=== PATIENT | male | born 1970 | race Caucasian/White ===

== ENCOUNTER 2017-11-30 14:32 | Inpatient (IN) | payer MEDICAID ==
[~2017-11-30] VITALS: Ht 172.7 cm; Wt 89.8 kg
[~2017-11-30 14:32] MED LIST: HYDR-385 PO; NO ROUTINE MEDS; NO RTN MEDS; OMEP-218 PO
--- NOTE | 2017-11-30 15:10 | ER Report ---
History and Physical Time Seen By MD: 14:48 Hx. of Stated Complaint: pt has had several severe injuries since 1988; uses a cane, last week fell at home flat forward and has had worsening weakness in arms and legs leading up to almost paralysis, unable to walk currently HPI/ROS CHIEF COMPLAINT: Fall HISTORY OF PRESENT ILLNESS: This is a 47-year-old male who presents to the emergency department status post falling several times over the last couple of weeks. Patient states he has had a progression of inability to ambulate without an assistive device over the last year or so. He has been using a cane to help ambulate over the last two weeks, then the past week he's been using a walker to ambulate. States on he fell forward landing on his face on a carpeted floor, denies loss of consciousness. He did not come to the ED follow- up. Patient states now his walking is more impaired and decreased function of his upper extremities. He is not able to hold himself up with his arms, pulse himself up or even feed himself. Patient states he just didn't want to come in for evaluation. Patient states he's also been evaluated at [facility] for his known neck injuries and degenerative disc disease, he was supposed to have surgery but he said he "chickened out". Patient states today he is very nervous and decided to come in for evaluation. Patient denies any changes in his chronic pain. The inability to lift his arms and legs has been progressing over the last "3 weeks", the edema in the hands and ankles has developed over the past couple of days. No changes in bowel or bladder function. Denies headaches, chest pain, shortness of breath, fevers, chills, aches, pain, nausea or vomiting. REVIEW OF SYSTEMS: Constitutional: No fever, no chills. Eyes: No discharge. ENT: No sore throat. Cardiovascular: No chest pain, no palpitations. Respiratory: No cough, no shortness of breath. Gastrointestinal: No abdominal pain, no vomiting. Genitourinary: No hematuria. Musculoskeletal: As above. Skin: No rashes. Neurological: As above. Allergies: Coded Allergies: No Known Drug Allergies (Unverified , 01/09/12) Home Meds Reported Medications [No Routine Meds] No Conflict Check, 0 Refills 03/23/11 Discontinued Scripts Hydrocodone Bit/Acetaminophen (HYDROCODON-ACETAMINOPHEN 5-325) 1 Each Tablet, 1 EACH PO Q4-6H Y for PAIN, #12 TAB Prov:NANI WHITTINGTON CERTIFIED PHYSICAL THERAPIST ASSISTANT 05/05/17 Past Medical/Surgical History Patient has a past medical and surgical history of migraines, hypertension, hypercholesterolemia, arthritis, fractures, back pain, neck pain, skull fracture with surgery. Reviewed Nurses Notes: Yes Hx Smoking: Yes (1 PACK EVERY 2 DAYS) Hx Substance Use Disorder: No Hx Alcohol Use: Yes (OCCASIONALLY) Constitutional Vital Sign - Last 24 Hours 11/30/17 11/30/17 11/30/17 11/30/17 14:32 14:40 14:41 14:47 Temp 98.9 Pulse ??? 90 94 Resp 18 B/P (MAP) 146/96 (113) 146/96 Pulse Ox 97 94 O2 Delivery Room Air 11/30/17 11/30/17 11/30/17 11/30/17 15:00 15:02 15:17 15:30 Pulse ??? 94 B/P (MAP) 139/109 (119) 152/87 (108) Pulse Ox 92 11/30/17 11/30/17 11/30/17 11/30/17 15:32 15:47 17:52 17:57 Pulse 97 80 ? Pulse Ox 92 11/30/17 11/30/17 11/30/17 11/30/17 18:02 18:07 18:12 18:17 Pulse ? 11/30/17 11/30/17 11/30/17 11/30/17 18:22 18:27 18:32 18:37 Pulse ? 11/30/17 11/30/17 11/30/17 11/30/17 18:42 18:47 18:52 18:57 Pulse ? 89 ??? B/P (MAP) 148/89 (108) Pulse Ox 98 11/30/17 11/30/17 11/30/17 11/30/17 19:00 19:02 19:07 19:12 Pulse 93 87 87 B/P (MAP) 134/82 (99) 133/85 (101) Pulse Ox 94 93 89 11/30/17 11/30/17 11/30/17 11/30/17 19:17 19:22 19:27 19:30 Pulse 93 92 86 B/P (MAP) 141/89 (106) Pulse Ox 94 92 91 11/30/17 11/30/17 19:32 19:37 Pulse 87 ??? Pulse Ox 93 95 Physical Exam General Appearance: The patient is alert, has no immediate need for airway protection and no signs of toxicity. Eyes: Anisocoria, right pupil 3mm, left pupil 2mm both are round and reactive, no pallor or injection. ENT, TM's intact, pearly hnoeycutt, landmarks noted bilaterally. Mouth: Mucous membranes are moist. No tonsillar hypertrophy, no exudate. Nose: Inferior turbinates pink and moist, no nasal discharge. Respiratory: There are no retractions, lungs are clear to auscultation. Cardiovascular: Regular rate and rhythm, no murmurs, clicks or rubs. Gastrointestinal: Abdomen is soft and non tender, no masses, bowel sounds normal. Neurological: Alert and oriented 4. 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 3-4/5 strength lower extremities bilaterally. Following all commands. No focal neuro deficits. 2+ biceps, patellar and Achilles reflexes. Cranial nerves II-XII intact and equal. Skin: Warm and dry, no rashes. Several abrasions to lower extremities bilaterally. Musculoskeletal: Neck is supple mild generalized tenderness to the spine, no step-offs or crepitus noted. Extremities are nontender, +1 pitting edema to the ankles bilaterally. Non pitting edema to the hands. full range of motion. DIFFERENTIAL DIAGNOSIS: After history and physical exam differential diagnosis was considered for but not limited to degenerative disc disease, herniated disc , spine fracture, pathogenic fracture, cauda equina syndrome. Medical Decision Making Data Points Result Diagram: 11/30/17 1506 11/30/17 1506 Laboratory Hematology Test 11/30/17 15:06 Red Blood Count 5.31 M/uL (4.00-5.60) Mean Corpuscular Volume 91.9 fL (80.0-96.0) Mean Corpuscular Hemoglobin 32.3 pg (26.0-33.0) Mean Corpuscular Hemoglobin Concent 35.1 g/dL (32.0-36.0) Red Cell Distribution Width 13.6 % (11.5-14.5) Mean Platelet Volume 9.3 fL (7.2-11.1) Neutrophils (%) (Auto) 52.7 % (39.4-72.5) Lymphocytes (%) (Auto) 34.7 % (17.6-49.6) Monocytes (%) (Auto) 9.5 % (4.1-12.4) Eosinophils (%) (Auto) 2.5 % (0.4-6.7) Basophils (%) (Auto) 0.6 % (0.3-1.4) Nucleated RBC Relative Count (auto) 0.7 /100WBC Neutrophils # (Auto) 3.0 K/uL (2.0-7.4) Lymphocytes # (Auto) 2.0 K/uL (1.3-3.6) Monocytes # (Auto) 0.5 K/uL (0.3-1.0) Eosinophils # (Auto) 0.1 K/uL (0.0-0.5) Basophils # (Auto) 0.0 K/uL (0.0-0.1) Nucleated RBC Absolute Count (auto) 0.04 K/uL Sodium Level 140 mmol/L (137-145) Potassium Level 4.0 mmol/L (3.5-5.0) Chloride Level 104 mmol/L (98-107) Carbon Dioxide Level 26 mmol/L (22-30) Blood Urea Nitrogen 15 mg/dl (9-21) Creatinine 0.70 mg/dl (0.66-1.25) Glomerular Filtration Rate Calc > 60.0 Random Glucose 155 mg/dl (75-110) Calcium Level 9.4 mg/dl (8.4-10.2) Total Bilirubin 0.6 mg/dl (0.2-1.3) Aspartate Amino Transf (AST/SGOT) 36 U/L (0-35) Alanine Aminotransferase (ALT/SGPT) 62 U/L (0-56) Alkaline Phosphatase 76 U/L (0-126) Total Protein 6.8 gm/dl (6.3-8.2) Albumin 3.8 g/dl (3.5-5.0) Chemistry Test 11/30/17 15:06 White Blood Count 5.7 k/uL (4.5-11.0) Red Blood Count 5.31 M/uL (4.00-5.60) Hemoglobin 17.1 g/dL (14.0-18.0) Hematocrit 48.8 % (42.0-52.0) Mean Corpuscular Volume 91.9 fL (80.0-96.0) Mean Corpuscular Hemoglobin 32.3 pg (26.0-33.0) Mean Corpuscular Hemoglobin Concent 35.1 g/dL (32.0-36.0) Red Cell Distribution Width 13.6 % (11.5-14.5) Platelet Count 143 K/uL (150-450) Mean Platelet Volume 9.3 fL (7.2-11.1) Neutrophils (%) (Auto) 52.7 % (39.4-72.5) Lymphocytes (%) (Auto) 34.7 % (17.6-49.6) Monocytes (%) (Auto) 9.5 % (4.1-12.4) Eosinophils (%) (Auto) 2.5 % (0.4-6.7) Basophils (%) (Auto) 0.6 % (0.3-1.4) Nucleated RBC Relative Count (auto) 0.7 /100WBC Neutrophils # (Auto) 3.0 K/uL (2.0-7.4) Lymphocytes # (Auto) 2.0 K/uL (1.3-3.6) Monocytes # (Auto) 0.5 K/uL (0.3-1.0) Eosinophils # (Auto) 0.1 K/uL (0.0-0.5) Basophils # (Auto) 0.0 K/uL (0.0-0.1) Nucleated RBC Absolute Count (auto) 0.04 K/uL Glomerular Filtration Rate Calc > 60.0 Calcium Level 9.4 mg/dl (8.4-10.2) Total Bilirubin 0.6 mg/dl (0.2-1.3) Aspartate Amino Transf (AST/SGOT) 36 U/L (0-35) Alanine Aminotransferase (ALT/SGPT) 62 U/L (0-56) Alkaline Phosphatase 76 U/L (0-126) Total Protein 6.8 gm/dl (6.3-8.2) Albumin 3.8 g/dl (3.5-5.0) EKG/Imaging Imaging Location: [facility] [place] Patient: Je Mcgarry : 1970 Visit/Account:[id number] Date of Sevice: 11/30/2017 Examination: C SPINE W/O CONTRAST Comparison: CT cervical spine 05/05/2017 History: decreased ability to ambulate and use upper extremities Procedure: Multiplanar noncontrast MRI cervical spine with T1, T2, STIR, and gradient sequences. Findings: Focal reversal of the cervical curvature from C3 through C5 is minimally changed since the CT. No acute or cervical vertebral body height loss or malalignment. Atlantoaxial, craniocervical, and cervicothoracic alignment is within normal limits. Focal bone marrow edema and C4 and to lesser extent C5; as there is no history of trauma this is presumably degenerative. This lies contents of the posterior fossa unremarkable. No acute abnormality in the visualized prevertebral or paraspinal soft tissues. C1-C2: Negative. C2-C3: Degenerative disc desiccation. No canal or foraminal narrowing. C3-C4: Degenerative disc desiccation. Moderate canal stenosis with mild flattening of the spinal cord secondary to an irregular posterior disc and osteophyte complex. Advanced narrowing of both neural foramina due to uncovertebral joint particularly although evaluation is mildly limited by motion. C4-C5: Degenerative disc desiccation with a large diffusely bulging disc with resultant severe canal stenosis and flattening of the spinal cord spinal canal. Increased T2 signal within the compressed spinal cord extending to the level of the C5-C6 disc space. Maximum AP diameter of the canal at the level of the disc space is 4 mm. Additionally, the degenerative disc bulge results in high-grade narrowing of both neural foramina. C5-C6: Degenerative disc desiccation with a diffusely bulging disc. Moderately severe canal stenosis with near-complete effacement of the CSF space and flattening of the spinal cord. As noted above, there is increased T2 signal within the spinal cord at this level. High-grade narrowing of both neural foramina due to the disc disease. C6-C7: Negative. C7-T1: Negative. IMPRESSION: 1. Severe canal stenosis at C4-C5 and to lesser extent C3-C4 and C5-C6 is associated with marked compression of the spinal cord and associated cord signal alteration. Spine surgery consultation is required. 2. C3-C4, C4-C5, C5-C6 advanced neural foraminal narrowing. Results were discussed with KRISS SALCIDO at 11/30/2017 6:32 PM. Report Dictated By: Fran Parker MD at 11/30/2017 6:22 PM Report E-Signed By: Fran Parker MD at 11/30/2017 6:34 PM WSN:[id number] Location: [facility] [place] Patient: Je Mcgarry : 1970 Visit/Account:[id number] Date of Sevice: 11/30/2017 Examination: L SPINE W/O CONTRAST Comparison: None. History: decreased ability to ambulate and use upper extremities bilaterally Procedure: Multiplanar noncontrast MRI lumbar spine with T1, T2, and STIR sequences. Findings: 5 lumbar type vertebral bodies. Vertebral body height and alignment is within normal limits. Thoracolumbar, facet, and lumbosacral alignment is maintained. L1 vertebral body 2.4 x 3.1 x 2.5 cm hemangioma. Bone marrow signal intensity is within normal limits. No acute abnormality within the visualized prevertebral or paraspinal soft tissues. T12-L1: Negative. L1-L2: Negative. L2-L3: Diffusely bulging disc with a prominent left subarticular, foraminal, and lateral component. This results in only minimal canal narrowing although there is moderate narrowing of the left lateral recess with questionable contact upon the L2 nerve root within the recess. Additionally, there is mild left worse than right foraminal narrowing. L3-L4: Mild facet arthropathy results in mild canal and lateral recess narrowing but no nerve root impingement. No definite foraminal narrowing. L4-L5: Mild facet and ligamentous hypertrophy. Diffusely bulging disc with a prominent right subarticular, foraminal, and lateral component. This results in only minimal canal narrowing although there is moderately severe narrowing of the right lateral recess with probable contact on the L5 nerve root within the recess. Additionally, there is moderate right-sided foraminal narrowing. L5-S1: Minimal diffuse disc bulge and facet arthropathy. No canal or lateral recess narrowing. Minimal left foraminal narrowing. IMPRESSION: Multilevel degenerative change. As further detailed above this is most notable at L2-L3 and L4-L5 where lateral recess narrowing is likely associated with nerve root contact. Report Dictated By: Fran Parker MD at 11/30/2017 7:08 PM Report E-Signed By: Fran Parker MD at 11/30/2017 7:22 PM WSN:[id number] Location: [facility] [place] Patient: Je Mcgarry : 1970 Visit/Account:[id number] Date of Sevice: 11/30/2017 Examination: MRI thoracic spine without contrast. Comparison: None. History: decreased ability to ambulate and use both upper extremities Procedure: Multiplanar noncontrast MRI thoracic spine with T1, T2, and STIR sequences. FINDINGS: 12 thoracic type vertebral bodies. Vertebral body height and alignment is within normal limits. Cervicothoracic and thoracolumbar alignment is maintained. Bone marrow signal intensity is within normal limits. Thoracic spinal cord is unremarkable with no evidence of spinal cord signal alteration. T7-T8 mild diffusely bulging disc results in minimal effacement of the anterior thecal sac. T5-T6 right neural foramina mild narrowing with possible nerve root compression. No acute abnormality in the visualized prevertebral or paraspinal soft tissues. IMPRESSION: Mild degenerative change at T5-T6 and T7-T8 with possible nerve root compression within the T5-T6 right neural foramina. Report Dictated By: Fran Parker MD at 11/30/2017 6:32 PM Report E-Signed By: Fran Parker MD at 11/30/2017 6:40 PM WSN:[id number] ED Course/Re-evaluation Clinical Indication for ER IV: IV Access ED Course The patient was assisted out of the collar upon arrival, then admitted to room via wheelchair. Patient was assisted to the [facility]. History and physical were obtained. Differential diagnoses were considered. An IV was started. A CBC, CMP , UA were unremarkable. A C-spine, T-spine and L-spine MRI's were obtained. Results were showing severe canal stenosis and marked compression of the spinal cord with inflammation, the radiologist did call saying that surgical consultation is required. Patient also has advanced neural foraminal narrowing. I did end up speaking with Dr. Avalos as noted below. I also spoke with Dr. Chinyere Bowser is noted below who is accepted the patient in her services for Dr. Avalos. Dr. Avalos will see the patient in the morning for surgical evaluation. I did review the results with the patient and expressed the concern for his rapid progression of symptoms and that surgery is likely the only way that this will resolve. Patient is very concerned and is willing to stay in the hospital tonight and speak with Dr. Avalos in the morning. Patient was also given 1 mg IV Ativan for the MRI. Patient was also given 50 mg IV Decadron as requested by Dr. Avalos. The patient had no other questions or concerns at the time of admission. Also noted that the patient did have a urinary incontinence episode in the MRI which he was not aware of. 11/30/2017 7:14:42 pm I did consult with Dr. Alvarado, neurosurgery in [place] regarding the patient's case and the recommendation by radiology for emergent spine surgery consultation. He recommended following up with the spinal surgeon here in [facility], Dr. Avalos. 11/30/2017 7:18:07 pm I did speak with the ortho hospital nurse liaison Dr. Martin from [facility], Dr. Martin will a call Dr. Avalos [facility] integration specialist see what he would recommend and call me back. 11/30/2017 7:42:[address] Avalos did call we did review the case he has to hit admit the patient to the hospitalist service he will be here tomorrow, evaluated the patient and they'll discuss surgery at that time. He also said to go ahead and give the patient a 50 mg Decadron dose to help with cord inflammation. I did speak with Dr. Chinyere Bowser regarding the patient's case and she has agreed to accept the patient into her services. The patient will be admitted to the medical surgical unit. Decision to Disposition Date: Nov 30, 2017 Decision to Disposition Time: 19:52 Depart Departure Latest Vital Signs Vital Signs Date Time Temp Pulse Resp B/P (MAP) Pulse Ox O2 Delivery O2 Flow Rate FiO2 11/30/17 19:37 ??? 95 11/30/17 19:30 141/89 (106) 11/30/17 14:41 98.9 18 Room Air Impression: Primary Impression: Spinal cord compression Additional Impression: Cervical stenosis of spinal canal Condition: Condition Unchanged Disposition: Admitted from ER Problem Qualifiers KRISS SALCIDO CERTIFIED PHYSICAL THERAPIST ASSISTANT-BC Nov 30, 2017 15:10
[2017-11-30 15:24] LABS: PLATELET COUNT, AUTOMATED 143 K/uL (150-450)
[2017-11-30] MEDS ORDERED: LORazepam 2 MG/ML VIAL IVP ONE ×2 (16:35→16:45)
[2017-11-30] MEDS ORDERED: LORazepam 2 MG/ML VIAL ONE (16:37)
--- NOTE | 2017-11-30 18:38 | RADIOLOGY IMAGING REPORT ---
FACILITY: [facility] PATIENT NAME: Je Mcgarry : 1970 MR: [id number] V: [id number] EXAM DATE: ORDERING PHYSICIAN: KRISS SALCIDO TECHNOLOGIST: Location: [facility] [place] Patient: Je Mcgarry : 1970 Visit/Account:[id number] Date of Sevice: 11/30/2017 Examination: C SPINE W/O CONTRAST Comparison: CT cervical spine 05/05/2017 History: decreased ability to ambulate and use upper extremities Procedure: Multiplanar noncontrast MRI cervical spine with T1, T2, STIR, and gradient sequences. Findings: Focal reversal of the cervical curvature from C3 through C5 is minimally changed since the CT. No acute or cervical vertebral body height loss or malalignment. Atlantoaxial, craniocervical, an d cervicothoracic alignment is within normal limits. Focal bone marrow edema and C4 and to lesser ext ent C5; as there is no history of trauma this is presumably degenerative. This lies contents of the p osterior fossa unremarkable. No acute abnormality in the visualized prevertebral or paraspinal soft t issues. C1-C2: Negative. C2-C3: Degenerative disc desiccation. No canal or foraminal narrowing. C3-C4: Degenerative disc desiccation. Moderate canal stenosis with mild flattening of the spinal cord secondary to an irregular posterior disc and osteophyte complex. Advanced narrowing of both neural f oramina due to uncovertebral joint particularly although evaluation is mildly limited by motion. C4-C5: Degenerative disc desiccation with a large diffusely bulging disc with resultant severe canal stenosis and flattening of the spinal cord spinal canal. Increased T2 signal within the compressed sp inal cord extending to the level of the C5-C6 disc space. Maximum AP diameter of the canal at the lev el of the disc space is 4 mm. Additionally, the degenerative disc bulge results in high-grade narrowi ng of both neural foramina. C5-C6: Degenerative disc desiccation with a diffusely bulging disc. Moderately severe canal stenosis with near-complete effacement of the CSF space and flattening of the spinal cord. As noted above, the re is increased T2 signal within the spinal cord at this level. High-grade narrowing of both neural f oramina due to the disc disease. C6-C7: Negative. C7-T1: Negative. IMPRESSION: 1. Severe canal stenosis at C4-C5 and to lesser extent C3-C4 and C5-C6 is associated with marked comp ression of the spinal cord and associated cord signal alteration. Spine surgery consultation is requi red. 2. C3-C4, C4-C5, C5-C6 advanced neural foraminal narrowing. Results were discussed with KRISS SALCIDO at 11/30/2017 6:32 PM. Report Dictated By: Fran Parker MD at 11/30/2017 6:22 PM Report E-Signed By: Fran Parker MD at 11/30/2017 6:34 PM WSN:[id number]
--- NOTE | 2017-11-30 18:45 | RADIOLOGY IMAGING REPORT ---
[place] [facility] [place] NAME: Je Mcgarry : 1970 MR: [id number] V: [id number] EXAM DATE: ORDERING PHYSICIAN: KRISS SALCIDO TECHNOLOGIST: Location: [facility] Patient: Je Mcgarry : 1970 Visit/Account:[id number] Date of Sevice: 11/30/2017 Examination: MRI thoracic spine without contrast. Comparison: None. History: decreased ability to ambulate and use both upper extremities Procedure: Multiplanar noncontrast MRI thoracic spine with T1, T2, and STIR sequences. FINDINGS: 12 thoracic type vertebral bodies. Vertebral body height and alignment is within normal thomas its. Cervicothoracic and thoracolumbar alignment is maintained. Bone marrow signal intensity is withi n normal limits. Thoracic spinal cord is unremarkable with no evidence of spinal cord signal alterati on. T7-T8 mild diffusely bulging disc results in minimal effacement of the anterior thecal sac. T5-T6 rig ht neural foramina mild narrowing with possible nerve root compression. No acute abnormality in the visualized prevertebral or paraspinal soft tissues. IMPRESSION: Mild degenerative change at T5-T6 and T7-T8 with possible nerve root compression within the T5-T6 rig ht neural foramina. Report Dictated By: Fran Parker MD at 11/30/2017 6:32 PM Report E-Signed By: Fran Parker MD at 11/30/2017 6:40 PM WSN:[id number]
--- NOTE | 2017-11-30 19:25 | RADIOLOGY IMAGING REPORT ---
FACILITY: [facility] PATIENT NAME: Je Mcgarry : 1970 MR: [id number] V: [id number] EXAM DATE: ORDERING PHYSICIAN: KRISS SALCIDO TECHNOLOGIST: Location: [facility] [place] Patient: Je Mcgarry : 1970 Visit/Account:[id number] Date of Sevice: 11/30/2017 Examination: L SPINE W/O CONTRAST Comparison: None. History: decreased ability to ambulate and use upper extremities bilaterally Procedure: Multiplanar noncontrast MRI lumbar spine with T1, T2, and STIR sequences. Findings: 5 lumbar type vertebral bodies. Vertebral body height and alignment is within normal limits . Thoracolumbar, facet, and lumbosacral alignment is maintained. L1 vertebral body 2.4 x 3.1 x 2.5 cm hemangioma. Bone marrow signal intensity is within normal limits. No acute abnormality within the vi sualized prevertebral or paraspinal soft tissues. T12-L1: Negative. L1-L2: Negative. L2-L3: Diffusely bulging disc with a prominent left subarticular, foraminal, and lateral component. T his results in only minimal canal narrowing although there is moderate narrowing of the left lateral recess with questionable contact upon the L2 nerve root within the recess. Additionally, there is mil d left worse than right foraminal narrowing. L3-L4: Mild facet arthropathy results in mild canal and lateral recess narrowing but no nerve root im pingement. No definite foraminal narrowing. L4-L5: Mild facet and ligamentous hypertrophy. Diffusely bulging disc with a prominent right subartic ular, foraminal, and lateral component. This results in only minimal canal narrowing although there i s moderately severe narrowing of the right lateral recess with probable contact on the L5 nerve root within the recess. Additionally, there is moderate right-sided foraminal narrowing. L5-S1: Minimal diffuse disc bulge and facet arthropathy. No canal or lateral recess narrowing. Minima l left foraminal narrowing. IMPRESSION: Multilevel degenerative change. As further detailed above this is most notable at L2-L3 and L4-L5 whe re lateral recess narrowing is likely associated with nerve root contact. Report Dictated By: Fran Parker MD at 11/30/2017 7:08 PM Report E-Signed By: Fran Parker MD at 11/30/2017 7:22 PM WSN:[id number]
[2017-11-30] MEDS ORDERED: DEXAMETHASONE SOD PHOS 10MG/ML IVP ONE (19:35)
[2017-11-30] MEDS ORDERED: NS(*) 0.9% 100 ML BAG 100 ML ONE (19:59)
[2017-11-30] MEDS ORDERED: HYDROmorphone HCL 2 MG/ML SDV IVP PRN (20:20)
[2017-11-30] MEDS ORDERED: NS(*) 0.9% 100 ML BAG 100 ML in NS(*) 0.9% 100 ML BAG 100 ML IVPB ONE (20:20)
[2017-11-30 20:42] VITALS: BP 154/101
[2017-11-30] MEDS ORDERED: PANTOPRAZOLE SOD 40 MG IV VIAL IVP SCH (21:00)
[2017-11-30] MEDS ORDERED: INFLUENZA VIRUS VAC 0.5 ML SYR IM ONLY ONE (21:05)
[2017-11-30] MEDS ORDERED: ONDANSETRON 4 MG/2 ML VIAL IVP PRN (21:05)
[2017-11-30] MEDS ORDERED: ACETAMINOPHEN 325 MG TAB PO PRN (21:05)
[2017-11-30] MEDS: NS(*) 0.9% 1000 ML BAG 1,000 ML IV PRN (21:25)
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
[2017-11-30] MEDS ORDERED: CALCIUM CARBONATE 500 MG CHEW PO PRN (21:45)
--- NOTE | 2017-11-30 22:10 | RADIOLOGY IMAGING REPORT ---
FACILITY: [facility] PATIENT NAME: Je Mcgarry : 1970 MR: [id number] V: [id number] EXAM DATE: ORDERING PHYSICIAN: JOHNNY BANUELOS TECHNOLOGIST: Location: [facility] [place] Patient: eJ Mcgarry : 1970 Visit/Account:[id number] Date of Sevice: 11/30/2017 EXAMINATION: Portable AP Chest 11/30/2017 8:19 PM HISTORY: Severe cervical stenosis with paralysis, surgery am COMPARISON: Chest x-ray 06/03/2014 FINDINGS: Cardiomediastinal contours: Convex prominence of the right paratracheal stripe soft tissue contours m ore evident than on priors but I think this area is grossly evaluated by the thoracic spine MR today and there is only fat and vasculature without definable mass or adenopathy. Heart size is normal. Lungs and pleura: Normal Bones/soft tissues: Normal IMPRESSION: Probably negative for acute finding. See above discussion regarding the right paratrachea l stripe. Report Dictated By: Pedro Davis MD at 11/30/2017 10:04 PM Report E-Signed By: Pedro Davis MD at 11/30/2017 10:07 PM WSN:[id number]
[2017-12-01 02:50] VITALS: BP 137/85
[2017-12-01] MEDS: NS(*) 0.9% 1000 ML BAG 1,000 ML IV PRN (07:23)
[2017-12-01 07:24] VITALS: BP 129/90
[2017-12-01 09:10] VITALS: Ht 172.7 cm; Wt 89.8 kg
--- NOTE | 2017-12-01 11:28 | EKG ---
[place] [facility] [place]IENT NAME: MICHELLE ANGEL : [id number] MR: [id number] V: [id number] EXAM DATE: ORDERING PHYSICIAN: JOHNNY BANUELOS TECHNOLOGIST: ABBEY Test Reason : PRE-OP Blood Pressure : / mmHG Vent. Rate : 084 BPM Atrial Rate : 084 BPM P-R Int : 152 ms QRS Dur : 094 ms QT Int : 378 ms P-R-T Axes : 079 086 072 degrees QTc Int : 446 ms Normal sinus rhythm Normal ECG When compared with ECG of 03-JUN-2014 09:23, No significant change was found Confirmed by GRIFFIN EARLY ([id number]) on 12/01/2017 2:56:35 PM Referred By: Confirmed By:GRIFFIN EARLY
--- NOTE | 2017-12-01 13:06 | Hospitalist Depart ---
Discharge Summary Reason for Hosp/Final Diag: (1) Spinal cord compression Status: Acute Hospital Course & Plan: He presented with weakness and paralysis. An MRI showed severe stenosis at C4-5 and lesser degrees at C3-4 and C5-6. He is already scheduled for surgery on 12/08/[address] Avalos. We did consult with Dr. Avalos, who recommended that he be discharged in a wheelchair and follow up next week for surgery as planned. (2) Cervical stenosis of spinal canal Status: Chronic Hospital Course & Plan: As above. (3) Smoker Status: Chronic Hospital Course & Plan: The patient smokes 1 pack every 2 days. He declines a nicotine patch currently. Departure Latest Vital Signs Vital Signs 12/01/17 07:24 Temp 98.3 Pulse 97 Resp 16 B/P (MAP) 129/90 (103) Pulse Ox 93 O2 Delivery Nasal Cannula O2 Flow Rate 1.0 Weight (Pounds): 198 Result Diagram: 11/30/17 1506 11/30/17 1506 Condition: No Change Discharge: Home, Self Care Discharge Instructions Home Meds Reported Medications [No Routine Meds] No Conflict Check, 0 Refills 03/23/11 Discontinued Scripts Hydrocodone Bit/Acetaminophen (HYDROCODON-ACETAMINOPHEN 5-325) 1 Each Tablet, 1 EACH PO Q4-6H Y for PAIN, #12 TAB Prov:NANI WHITTINGTON [employer]GER 05/05/17 Diet: Regular Activity: As Tolerated Venous Thromboembolism Antithrombotics Is Pt On Any Antithrombotics?: No GRIFFIN EARLY DO Dec 01, 2017 13:06
[2017-12-02] MEDS ORDERED: HYDR-385 PO (12:47)
== END 2017-12-01 14:30 | disposition home or self-care (01) | DRG 552 ==
LOC: ER 14:43 → MED 19:49
PROVIDERS: ADMIT Internal Medicine; ATTEND Internal Medicine
DX: M48.02 Spinal stenosis, cervical region (principal); G95.20 Unspecified cord compression; I10 Essential (primary) hypertension; R32 Unspecified urinary incontinence; F17.210 Nicotine dependence, cigarettes, uncomplicated; G54.3 Thoracic root disorders, not elsewhere classified; Z87.828 Personal history of other (healed) physical injury and trauma
CPT/HCPCS: 71045; 72141; 72146; 72148; 81001; 82040; 82247; 82310; 82374; 82435; 82565; 82947; 84075; 84132; 84155; 84295; 84443; 84450; 84460; 84520; 85025; 96374; 96375; 97161; 97166; 99285; C9113; J1100; J1170; J2060; J7030; J7050

== ENCOUNTER → 2017-12-06 | Outpatient (REF) | payer MEDICAID ==
[2017-12-01 09:10] VITALS: BMI 30.1
== END ==
LOC: ZZPBJ 01:35
PROVIDERS: ATTEND Orthopaedic Surgery
DX: Z01.812 Encounter for preprocedural laboratory examination (principal); M47.812 Spondylosis without myelopathy or radiculopathy, cervical region
CPT/HCPCS: 81001; 87077; 87088; 87186

== ENCOUNTER → 2017-12-15 | Outpatient (CLI) | payer MEDICAID ==
[2017-12-01 09:10] VITALS: BMI 30.1
== END ==
LOC: LAB 16:06
PROVIDERS: ATTEND Orthopaedic Surgery
DX: Z01.810 Encounter for preprocedural cardiovascular examination (principal); Z01.812 Encounter for preprocedural laboratory examination; N39.0 Urinary tract infection, site not specified; B96.89 Other specified bacterial agents as the cause of diseases classified elsewhere; M47.12 Other spondylosis with myelopathy, cervical region
CPT/HCPCS: 81001; 87077; 87088; 87186

== ENCOUNTER 2017-12-21 11:49 | Emergency (ER) | payer MEDICAID ==
[2017-12-01 09:10] VITALS: Ht 172.7 cm; Wt 83.9 kg
[~2017-12-21] VITALS: Ht 172.7 cm; Wt 83.9 kg
[~2017-12-21 11:49] MED LIST changes: -ACET-1966 PO
--- NOTE | 2017-12-21 11:54 | ER Report ---
History and Physical Time Seen By MD: 11:54 HPI/ROS CHIEF COMPLAINT: Inability to move HISTORY OF PRESENT ILLNESS: 47-year-old male patient presents to emergency room with complaint of inability to move. Patient states that he's been like this for approximately 3 weeks. He states that he's been here in the hospital and was admitted to the hospital on November 30 and discharged on the . He was scheduled for surgery on the . He was diagnosed with urinary tract infection prior to that and so surgery was pushed back. Patient states that he was prescribed antibiotics, generic antibiotics that he picked up at [facility]. I did call and speak with [facility] and they state that he has not had any prescriptions. Patient states that he has been getting worse. He states that last night he developed having some cramping to his abdomen last night. He states he has significant amounts of abdominal pain. Patient states she's not had any nausea or vomiting. Patient is unable to recall when his last bowel movement was. REVIEW OF SYSTEMS: Constitutional: No fever, no chills. Eyes: No discharge. ENT: No sore throat. Cardiovascular: No chest pain, no palpitations. Respiratory: No cough, no shortness of breath. Gastrointestinal: No abdominal pain, no vomiting. Genitourinary: No hematuria. Musculoskeletal: Back pain for the past several weeks, increasing weakness, for which she was admitted for on or . Skin: No rashes. Neurological: No headache. Allergies: Coded Allergies: No Known Drug Allergies (Unverified , 01/09/12) Home Meds Reported Medications Acetaminophen (TYLENOL) 325 Mg Tablet, 325 MG PO, TAB 12/21/17 Past Medical/Surgical History Patient has a past medical history of migraines, UTI, arthritis, left fifth finger fracture, back pain, upper neck with numbness and tingling, weakness to lower extremities and upper extremities, marijuana use, alcohol use. Patient has surgical history of tonsillectomy, skull fracture repaired with surgery. Patient has a family medical history of cancer, CAD, diabetes. Reviewed Nurses Notes: Yes Hx Smoking: Yes (1 PACK EVERY 2 DAYS) Hx Substance Use Disorder: No (marijuana) Hx Alcohol Use: Yes (OCCASIONALLY) Constitutional Vital Sign - Last 24 Hours 12/21/17 12/21/17 12/21/17 12/21/17 11:52 11:53 12:00 12:04 Temp 98.2 Pulse 89 91 Resp 18 20 B/P (MAP) 120/84 (96) 120/84 96/75 (82) Pulse Ox 94 85 O2 Delivery Room Air 12/21/17 12/21/17 12/21/17 12/21/17 12:19 12:22 12:34 12:35 Pulse 86 89 Resp 36 34 B/P (MAP) 115/70 (85) 122/79 (93) Pulse Ox 87 96 12/21/17 12/21/17 12/21/17 12/21/17 12:49 13:02 13:04 13:30 Pulse 87 87 Resp 17 17 B/P (MAP) 115/79 (91) 118/21 (53) Pulse Ox 93 91 12/21/17 12/21/17 12/21/17 12/21/17 13:34 13:39 13:48 13:54 Pulse 88 89 90 Resp 27 8 B/P (MAP) 106/94 (98) Pulse Ox 92 92 12/21/17 12/21/17 12/21/17 12/21/17 14:00 14:09 14:24 14:33 Pulse 92 ??? Resp 18 B/P (MAP) 105/78 (87) 130/83 (99) Pulse Ox 94 12/21/17 12/21/17 12/21/17 12/21/17 14:39 14:54 15:00 15:05 Pulse ??? 97 93 Resp 5 8 6 B/P (MAP) 121/80 (94) Pulse Ox 77 98 96 12/21/17 12/21/17 12/21/17 12/21/17 15:10 15:10 15:17 15:20 Pulse 93 93 95 Resp 20 18 7 Pulse Ox 99 99 O2 Delivery Nasal Cannula O2 Flow Rate 2.0 12/21/17 12/21/17 12/21/17 12/21/17 15:23 15:30 15:35 15:50 Temp 97.1 Pulse 97 ??? Resp 31 12 B/P (MAP) 105/85 (92) Pulse Ox 96 12/21/17 12/21/1718 12/21/17 16:00 16:05 16:15 16:20 Pulse 98 102 Resp 28 13 B/P (MAP) 115/75 (88) 110/70 (83) Pulse Ox 96 95 12/21/17 12/21/17 12/21/17 12/21/17 16:30 16:35 16:45 16:50 Pulse ? B/P (MAP) ???/??? (1665) ???/??? (1664) 12/21/17 17:00 B/P (MAP) ???/??? (1664) Intake and Output 12/21/17 12/21/17 12/22/17 15:00 23:00 07:00 Intake Total 1000 ml 240 ml Output Total 200 ml Balance 1000 ml 40 ml Physical Exam General Appearance: The patient is alert, has no immediate need for airway protection and no signs of toxicity. Eyes: Pupils equal and round no pallor or injection. Respiratory: There are no retractions, lungs are clear to auscultation. Cardiovascular: Regular rate and rhythm. Gastrointestinal: Abdomen is firm and diffusely tender, no masses, bowel sounds normal. Neurological: Patient is able to move right arm, no other movement noted. Rectal exam was performed, patient had decreased rectal tone. Skin: Warm and dry, no rashes. Musculoskeletal: Neck is supple non tender. Extremities are nontender, nonswollen and have full range of motion. DIFFERENTIAL DIAGNOSIS: After history and physical exam differential diagnosis was considered for spinal cord compression, pain, small bowel obstruction, urinary infection, sepsis, Medical Decision Making Data Points Result Diagram: 12/21/17 1247 12/21/17 1247 Laboratory Hematology Test 12/21/17 12:47 12/21/17 15:45 Red Blood Count 4.20 M/uL (4.00-5.60) Mean Corpuscular Volume 91.8 fL (80.0-96.0) Mean Corpuscular Hemoglobin 31.0 pg (26.0-33.0) Mean Corpuscular Hemoglobin Concent 33.8 g/dL (32.0-36.0) Red Cell Distribution Width 13.3 % (11.5-14.5) Mean Platelet Volume 8.3 fL (7.2-11.1) Neutrophils (%) (Auto) % (39.4-72.5) Lymphocytes (%) (Auto) % (17.6-49.6) Monocytes (%) (Auto) % (4.1-12.4) Eosinophils (%) (Auto) % (0.4-6.7) Basophils (%) (Auto) % (0.3-1.4) Nucleated RBC Relative Count (auto) /100WBC Neutrophils # (Auto) K/uL (2.0-7.4) Lymphocytes # (Auto) K/uL (1.3-3.6) Monocytes # (Auto) K/uL (0.3-1.0) Eosinophils # (Auto) K/uL (0.0-0.5) Basophils # (Auto) K/uL (0.0-0.1) Nucleated RBC Absolute Count (auto) K/uL Neutrophils % (Manual) 77 % (39.4-72.5) Band Neutrophils % 21 % Lymphocytes % (Manual) 2 % (17.6-49.6) Monocytes % (Manual) 0 % (4.1-12.4) Eosinophils % (Manual) 0 % (0.4-6.7) Basophils % (Manual) 0 % (0.3-1.4) Peripheral Blood Smear Yes Y/N Sodium Level 125 mmol/L (137-145) Potassium Level 6.1 mmol/L (3.5-5.0) Chloride Level 96 mmol/L (98-107) Carbon Dioxide Level 14 mmol/L (22-30) Blood Urea Nitrogen 81 mg/dl (9-21) Creatinine 3.80 mg/dl (0.66-1.25) Glomerular Filtration Rate Calc 17.0 Random Glucose 207 mg/dl (75-110) Lactate 1.2 mmol/L (0.7-2.1) Calcium Level 7.9 mg/dl (8.4-10.2) Total Bilirubin 3.0 mg/dl (0.2-1.3) Aspartate Amino Transf (AST/SGOT) 25 U/L (0-35) Alanine Aminotransferase (ALT/SGPT) 50 U/L (0-56) Alkaline Phosphatase 127 U/L (0-126) C-Reactive Protein 23.1 mg/dl (<1.0) Total Protein 5.6 gm/dl (6.3-8.2) Albumin 2.5 g/dl (3.5-5.0) Amylase Level 37 U/L (0-110) Lipase 69 U/L (23-300) Urine Color Yellow Urine Clarity Turbid Urine pH 5.0 pH (4.8-9.5) Urine Specific [place] 1.021 Urine Protein 100 mg/dL (NEGATIVE) Urine Glucose (UA) 50 mg/dL (NEGATIVE) Urine Ketones Negative mg/dL (NEGATIVE) Urine Blood Large (NEGATIVE) Urine Nitrite Negative (NEGATIVE) Urine Bilirubin Negative (NEGATIVE) Urine Urobilinogen 2.0 mg/dL (0.2-1.9) Urine Leukocyte Esterase Moderate (NEGATIVE) Urine RBC 250 /HPF (0-2/HPF) Urine WBC 2757 /HPF (0-5/HPF) Urine WBC Clumps Many /HPF Urine Squamous Epithelial Cells None /LPF (NONE-FEW) Urine Bacteria Many /HPF (NONE-FEW) Urine Mucus Few /HPF (NONE-FEW) Chemistry Test 12/21/17 12:47 12/21/17 15:45 White Blood Count 14.7 k/uL (4.5-11.0) Red Blood Count 4.20 M/uL (4.00-5.60) Hemoglobin 13.0 g/dL (14.0-18.0) Hematocrit 38.5 % (42.0-52.0) Mean Corpuscular Volume 91.8 fL (80.0-96.0) Mean Corpuscular Hemoglobin 31.0 pg (26.0-33.0) Mean Corpuscular Hemoglobin Concent 33.8 g/dL (32.0-36.0) Red Cell Distribution Width 13.3 % (11.5-14.5) Platelet Count 386 K/uL (150-450) Mean Platelet Volume 8.3 fL (7.2-11.1) Neutrophils (%) (Auto) % (39.4-72.5) Lymphocytes (%) (Auto) % (17.6-49.6) Monocytes (%) (Auto) % (4.1-12.4) Eosinophils (%) (Auto) % (0.4-6.7) Basophils (%) (Auto) % (0.3-1.4) Nucleated RBC Relative Count (auto) /100WBC Neutrophils # (Auto) K/uL (2.0-7.4) Lymphocytes # (Auto) K/uL (1.3-3.6) Monocytes # (Auto) K/uL (0.3-1.0) Eosinophils # (Auto) K/uL (0.0-0.5) Basophils # (Auto) K/uL (0.0-0.1) Nucleated RBC Absolute Count (auto) K/uL Neutrophils % (Manual) 77 % (39.4-72.5) Band Neutrophils % 21 % Lymphocytes % (Manual) 2 % (17.6-49.6) Monocytes % (Manual) 0 % (4.1-12.4) Eosinophils % (Manual) 0 % (0.4-6.7) Basophils % (Manual) 0 % (0.3-1.4) Peripheral Blood Smear Yes Y/N Glomerular Filtration Rate Calc 17.0 Lactate 1.2 mmol/L (0.7-2.1) Calcium Level 7.9 mg/dl (8.4-10.2) Total Bilirubin 3.0 mg/dl (0.2-1.3) Aspartate Amino Transf (AST/SGOT) 25 U/L (0-35) Alanine Aminotransferase (ALT/SGPT) 50 U/L (0-56) Alkaline Phosphatase 127 U/L (0-126) C-Reactive Protein 23.1 mg/dl (<1.0) Total Protein 5.6 gm/dl (6.3-8.2) Albumin 2.5 g/dl (3.5-5.0) Amylase Level 37 U/L (0-110) Lipase 69 U/L (23-300) Urine Color Yellow Urine Clarity Turbid Urine pH 5.0 pH (4.8-9.5) Urine Specific [place] 1.021 Urine Protein 100 mg/dL (NEGATIVE) Urine Glucose (UA) 50 mg/dL (NEGATIVE) Urine Ketones Negative mg/dL (NEGATIVE) Urine Blood Large (NEGATIVE) Urine Nitrite Negative (NEGATIVE) Urine Bilirubin Negative (NEGATIVE) Urine Urobilinogen 2.0 mg/dL (0.2-1.9) Urine Leukocyte Esterase Moderate (NEGATIVE) Urine RBC 250 /HPF (0-2/HPF) Urine WBC 2757 /HPF (0-5/HPF) Urine WBC Clumps Many /HPF Urine Squamous Epithelial Cells None /LPF (NONE-FEW) Urine Bacteria Many /HPF (NONE-FEW) Urine Mucus Few /HPF (NONE-FEW) Urinalysis Test 12/21/17 15:45 Urine Color Yellow Urine Clarity Turbid Urine pH 5.0 pH (4.8-9.5) Urine Specific [place] 1.021 Urine Protein 100 mg/dL (NEGATIVE) Urine Glucose (UA) 50 mg/dL (NEGATIVE) Urine Ketones Negative mg/dL (NEGATIVE) Urine Blood Large (NEGATIVE) Urine Nitrite Negative (NEGATIVE) Urine Bilirubin Negative (NEGATIVE) Urine Urobilinogen 2.0 mg/dL (0.2-1.9) Urine Leukocyte Esterase Moderate (NEGATIVE) Urine RBC 250 /HPF (0-2/HPF) Urine WBC 2757 /HPF (0-5/HPF) Urine WBC Clumps Many /HPF Urine Squamous Epithelial Cells None /LPF (NONE-FEW) Urine Bacteria Many /HPF (NONE-FEW) Urine Mucus Few /HPF (NONE-FEW) EKG/Imaging EKG Interpretation 12 lead EKG: Rhythm: normal sinus rhythm with a ventricular rate of 89 bpm. [place]: normal QRS: normal ST segments: normal Imaging ABDOMEN/PELVIS WITH CONTRAST HISTORY: , abdominal pain TECHNIQUE: CT abdomen and pelvis with intravenous contrast. One of the following dose optimization techniques was utilized in the performance of this exam: automated exposure control; adjustment of the mA and/ or kV according to patient size; or use of iterative reconstruction technique. Specific details can be referenced in the facility?s radiology CT exam operational policy. CONTRAST: 75 mL Isovue-370 COMPARISON: January 09, 2012 FINDINGS: Visualized lung bases: Negative. Hepatobiliary: Negative. Ascites is present throughout the abdomen Spleen: Negative. Adrenals: Negative. Pancreas: Negative. Kidneys/: There are asymmetric nephrograms consistent with pyelonephritis. The bladder is distended and thick-walled with mild hyperemia. Gas is noted within the bladder wall near the dome of the bladder and there are areas of decreased enhancement noted along the superior bladder wall. Large amount of inflammation is present around the bladder and there are scattered areas of pneumoperitoneum present. Findings are strongly suggestive of emphysematous cystitis, pyelonephritis and bladder rupture. Free fluid throughout the abdomen measures simple fluid. There is no evidence of hemoperitoneum GI: The small bowel shows mild diffuse dilatation suggestive of ileus. Diffuse inflammation is noted throughout the mesentery particularly within the lower pelvis adjacent to the bladder suggestive of peritonitis. There is narrowing and subtle hyperemia of the terminal ileum. No gas is seen adjacent to the terminal ileum. Vessels/spaces/nodes: There is diffuse ascites and mild diffuse pneumoperitoneum Bones/soft tissues: Within the lumbar spine, there are multiple areas of spinal stenosis better described on recent MRI IMPRESSION: There is diffuse free fluid and mild diffuse pneumoperitoneum noted throughout the abdomen. Inflammation is noted throughout the mesentery but centered predominantly within the pelvis consistent with peritonitis. Gas is present near the dome of the bladder and within the small sections of the bladder wall suggestive of emphysematous cystitis with areas of decreased perfusion suggestive of bladder discontinuity near the dome of the bladder.. In addition, there is evidence of bilateral pyelonephritis. The findings may represent ruptured emphysematous cystitis. Recommend delayed bladder imaging for further evaluation. There is hyperemia and narrowing of the terminal ileum with a mild ileus present. Other diagnostic considerations would include Crohn's disease with perforation. Critical findings: The findings were reviewed with Brock Blackwell nurse practitioner. Delayed bladder images are pending. Report Dictated By: Morgan Keane at 12/21/2017 1:58 PM Report E-Signed By: Morgan Keane at 12/21/2017 2:[address] abdomen and pelvis without contrast Indication: Possible bladder rupture. Infection. Comparison: Examination with IV contrast earlier in the afternoon is reviewed. Technique: Axial CT images are obtained through the abdomen and pelvis. Reformatted coronal and sagittal images were reviewed. IV contrast was not administered. One of the following dose optimization techniques was utilized in the performance of this exam: Automated exposure control; adjustment of the mA and/ or kV according to the patient's size; or use of an iterative reconstruction technique. Specific details can be referenced in the facility's radiology CT exam operational policy. Findings: Lower lung chacon: Dependent atelectasis involves the lower lobes. Evaluation of the solid organs of the abdomen is limited without IV contrast. Liver: No focal parenchymal abnormality of the liver. Biliary: Gallbladder appears unremarkable as well as the intra and extra hepatic biliary system. Pancreas: Normal appearance. Spleen: Normal appearance. Adrenal glands: Diffuse thickening without discrete nodule. Kidneys / retroperitoneum: There is excretion of contrast by the kidneys. No hydronephrosis. Bowel/genitourinary: The bladder is now opacified with excreted IV contrast. There is intraperitoneal leakage of excreted contrast from the bladder dome anteriorly and superiorly into the peritoneal space compatible with intraperitoneal bladder rupture. There is air within the wall of the bladder and there is air within the peritoneal space. This has likely occurred in the setting of emphysematous cystitis and infection of the bladder wall. Contrast is seen to partially surround several bowel loops within the right low abdomen which appear thick walled, likely reactive to the underlying infection. Vessels: Scattered atherosclerotic calcifications seen throughout a nonaneurysmal abdominal aorta and branches. Musculoskeletal / Body wall: Degenerative changes involve the spine. IMPRESSION: 1. Delayed CT images consistent with intraperitoneal rupture of the bladder. Rupture has occurred in the region of the bladder dome with spillage of urine and contrast into the abdomen and pelvis. 2. Air within the wall of the bladder and within the surrounding soft tissues at the site of rupture in keeping with infection and emphysematous cystitis. Findings were discussed with Dr. Douglas by telephone at the time of dictation. Report Dictated By: Dominik Mays at 12/21/2017 2:57 PM Report E-Signed By: Dominik Mays at 12/21/2017 3:14 PM CHEST SINGLE AP INDICATION: chest pain COMPARISON: 11/30/2017 FINDINGS: Heart size within normal limits. There is mild pulmonary hypoventilation, no infiltrate is identified. There is no pneumothorax or pleural effusion. IMPRESSION: 1. Poor inspiratory effort otherwise negative chest Report Dictated By: Morgan Keane at 12/21/2017 1:54 PM Report E-Signed By: Morgan Keane at 12/21/2017 1:55 PM ED Course/Re-evaluation ED Course Patient is admitted and examined, history and physical were obtained. Differential diagnoses were considered. On examination patient has abdomen that is hard to the touch with absent bowel sounds. A CBC, CMP, CT scan of the abdomen and pelvis, chest x-ray, troponin, EKG were done. CBC showed a white count of 14,000 with 21% bands, CMP showed a creatinine of 3.8, BUN of 81, potassium of 6.1 and sodium of 125. Patient received a liter of normal saline, a second liter was started but was started at 125 mL per hour, patient also received 1 g of calcium gluconate. EKG showed that he did have some peaked T waves in V2, V3, V4, V5. CT scan of the abdomen showed diffuse fluid throughout , small amount of air in the peritoneum, significant amount of inflammation around the bladder consistent with peritonitis and possible rupture. I spoke with the radiologist recommended a repeat CAT scan with the current delay to see what was going on with the IV contrast. Contrast was leaking into the peritoneum. I discussed findings with the patient. I discussed the case with hospitalist at [facility], he discussed this with urology as well as general surgeon and they felt the patient likely need to be transferred to a higher level of care and recommended [facility] or [facility]. I spoke with Dr. Ovlera, hospitalist at [facility], who accepted the patient for admission. A catheter was placed. We were able to get out purulent bloody urine. I will send in for a urinalysis as well as culture. Patient received a dose of Zosyn as well as D5 MS with 10 units of regular insulin. He also received a breathing treatment. Patient will be transferred to [facility]. I discussed this with the patient who verbalized understanding and agreement. Decision to Disposition Date: Dec 21, 2017 Decision to Disposition Time: 15:48 Depart Departure Latest Vital Signs Vital Signs Date Time Temp Pulse Resp B/P (MAP) Pulse Ox O2 Delivery O2 Flow Rate FiO2 12/21/17 17:00 ???/??? (1665) 12/21/17 16:50 ??? 12/21/17 16:20 13 95 12/21/17 15:23 97.1 12/21/17 15:10 Nasal Cannula 2.0 Impression: Primary Impression: Bladder rupture Additional Impressions: Cervical stenosis of spinal canal Spinal cord compression UTI (urinary tract infection) Hyperkalemia Hyponatremia Condition: Condition Unchanged Disposition: XFER TO [facility] Problem Qualifiers Additional Impressions: UTI (urinary tract infection) Urinary tract infection type: acute cystitis Hematuria presence: with hematuria Qualified Codes: N30.01 - Acute cystitis with hematuria NANI WHITTINGTON Dec 21, 2017 11:54
[2017-12-21] MEDS ORDERED: ACET-1966 PO (11:59)
[2017-12-21] MEDS ORDERED: NS(*) 0.9% 1000 ML BAG 1,000 ML IV ONE ×2 (12:03→13:05)
--- NOTE | 2017-12-21 12:12 | EKG ---
FACILITY: [facility] [place] PATIENT NAME: MICHELLE ANGEL : [id number] MR: [id number] V: [id number] EXAM DATE: ORDERING PHYSICIAN: NANI WHITTINGTON TECHNOLOGIST: CHANTELL Test Reason : CP Blood Pressure : / mmHG Vent. Rate : 089 BPM Atrial Rate : 089 BPM P-R Int : 148 ms QRS Dur : 094 ms QT Int : 362 ms P-R-T Axes : 075 086 069 degrees QTc Int : 440 ms Normal sinus rhythm Normal ECG When compared with ECG of 30-NOV-2017 21:04, No significant change was found Confirmed by RICA PERAZA ([id number]) on 12/21/2017 8:55:30 PM Referred By: NELSY Confirmed By:RICA PERAZA
[2017-12-21] MEDS ORDERED: NS 0.9% 20 ML SDV 60 ML ONE (12:51)
[2017-12-21] MEDS ORDERED: IOPAMIDOL 76% 75 ML INFUS BTL 75 ML ONE (12:51)
[2017-12-21 12:58] LABS: PLATELET COUNT, AUTOMATED 386 K/uL (150-450)
[2017-12-21] MEDS ORDERED: CALCIUM GLUC(*)10% 100MG/ML VL 1,000 MG in NS(*) 0.9% 100 ML BAG 100 ML IVPB ONE (13:15)
--- NOTE | 2017-12-21 13:59 | RADIOLOGY IMAGING REPORT ---
FACILITY: [facility] PATIENT NAME: Je Mcgarry : 1970 MR: [id number] V: [id number] EXAM DATE: ORDERING PHYSICIAN: NANI WHITTINGTON TECHNOLOGIST: Location[place] [facility] [place] Patient: Je Mcgarry : 1970 Visit/Account:[id number] Date of Sevice: 12/21/2017 CHEST SINGLE AP INDICATION: chest pain COMPARISON: 11/30/2017 FINDINGS: Heart size within normal limits. There is mild pulmonary hypoventilation, no infiltrate is identified. There is no pneumothorax or pleural effusion. IMPRESSION: 1. Poor inspiratory effort otherwise negative chest Report Dictated By: Morgan Keane at 12/21/2017 1:54 PM Report E-Signed By: Morgan Keane at 12/21/2017 1:55 PM WSN:[email or web address]
--- NOTE | 2017-12-21 14:32 | RADIOLOGY IMAGING REPORT ---
FACILITY: [facility] PATIENT NAME: Je Mcgarry : 1970 MR: [id number] V: [id number] EXAM DATE: ORDERING PHYSICIAN: NANI WHITTINGTON TECHNOLOGIST: Location: [facility] Patient: Je Mcgarry : 1970 Visit/Account:[id number] Date of Sevice: 12/21/2017 ABDOMEN/PELVIS WITH CONTRAST HISTORY: , abdominal pain TECHNIQUE: CT abdomen and pelvis with intravenous contrast. One of the following dose optimization techniques was utilized in the performance of this exam: autom ated exposure control; adjustment of the mA and/or kV according to patient size; or use of iterative reconstruction technique. Specific details can be referenced in the facility?s radiology CT exam oper ational policy. CONTRAST: 75 mL Isovue-370 COMPARISON: January 09, 2012 FINDINGS: Visualized lung bases: Negative. Hepatobiliary: Negative. Ascites is present throughout the abdomen Spleen: Negative. Adrenals: Negative. Pancreas: Negative. Kidneys/: There are asymmetric nephrograms consistent with pyelonephritis. The bladder is distend ed and thick-walled with mild hyperemia. Gas is noted within the bladder wall near the dome of the b ladder and there are areas of decreased enhancement noted along the superior bladder wall. Large yudith unt of inflammation is present around the bladder and there are scattered areas of pneumoperitoneum p resent. Findings are strongly suggestive of emphysematous cystitis, pyelonephritis and bladder ruptu re. Free fluid throughout the abdomen measures simple fluid. There is no evidence of hemoperitoneum GI: The small bowel shows mild diffuse dilatation suggestive of ileus. Diffuse inflammation is note d throughout the mesentery particularly within the lower pelvis adjacent to the bladder suggestive of peritonitis. There is narrowing and subtle hyperemia of the terminal ileum. No gas is seen adjacen t to the terminal ileum. Vessels/spaces/nodes: There is diffuse ascites and mild diffuse pneumoperitoneum Bones/soft tissues: Within the lumbar spine, there are multiple areas of spinal stenosis better desc ribed on recent MRI IMPRESSION: There is diffuse free fluid and mild diffuse pneumoperitoneum noted throughout the abdomen. Inflamma tion is noted throughout the mesentery but centered predominantly within the pelvis consistent with p eritonitis. Gas is present near the dome of the bladder and within the small sections of the bladder wall suggest tiffanie of emphysematous cystitis with areas of decreased perfusion suggestive of bladder discontinuity n ear the dome of the bladder.. In addition, there is evidence of bilateral pyelonephritis. The findi ngs may represent ruptured emphysematous cystitis. Recommend delayed bladder imaging for further stephany luation. There is hyperemia and narrowing of the terminal ileum with a mild ileus present. Other diagnostic c onsiderations would include Crohn's disease with perforation. Critical findings: The findings were reviewed with Brock Blackwell nurse practitioner. Delayed bladder i mages are pending. Report Dictated By: Morgan Keane at 12/21/2017 1:58 PM Report E-Signed By: Morgan Keane at 12/21/2017 2:27 PM WSN:[email or web address]
[2017-12-21] MEDS ORDERED: MORPHINE 4 MG/ML SDV IVP ONE (14:35)
[2017-12-21] MEDS ORDERED: PIPERACILLIN/TAZO*3.375GM VIAL 3.375 GM in NS(*) 0.9% 100 ML ADDVANT BAG 100 ML IVPB ONE (15:00)
[2017-12-21] MEDS ORDERED: INSU HUM REG 100 U/ML(ER ONLY) 10 ML VIAL IV ONE (15:00)
[2017-12-21] MEDS ORDERED: D5W(*) 500 ML BAG 500 ML IV PRN (15:00)
[2017-12-21] MEDS ORDERED: ALBUTEROL 2.5 MG/3 ML NEB NEB ONE (15:00)
--- NOTE | 2017-12-21 15:18 | RADIOLOGY IMAGING REPORT ---
FACILITY: [facility] PATIENT NAME: Je Mcgarry : 1970 MR: [id number] V: [id number] EXAM DATE: ORDERING PHYSICIAN: NANI WHITTINGTON TECHNOLOGIST: Location: [facility] Patient: Je Mcgarry : 1970 Visit/Account:[id number] Date of Sevice: 12/21/2017 CT abdomen and pelvis without contrast Indication: Possible bladder rupture. Infection. Comparison: Examination with IV contrast earlier in the afternoon is reviewed. Technique: Axial CT images are obtained through the abdomen and pelvis. Reformatted coronal and sagit charan images were reviewed. IV contrast was not administered. One of the following dose optimization techniques was utilized in the performance of this exam: Autom ated exposure control; adjustment of the mA and/or kV according to the patient's size; or use of an i terative reconstruction technique. Specific details can be referenced in the facility's radiology C T exam operational policy. Findings: Lower lung chacon: Dependent atelectasis involves the lower lobes. Evaluation of the solid organs of the abdomen is limited without IV contrast. Liver: No focal parenchymal abnormality of the liver. Biliary: Gallbladder appears unremarkable as well as the intra and extra hepatic biliary system. Pancreas: Normal appearance. Spleen: Normal appearance. Adrenal glands: Diffuse thickening without discrete nodule. Kidneys / retroperitoneum: There is excretion of contrast by the kidneys. No hydronephrosis. Bowel/genitourinary: The bladder is now opacified with excreted IV contrast. There is intraperitoneal leakage of excreted contrast from the bladder dome anteriorly and superiorly into the peritoneal spa ce compatible with intraperitoneal bladder rupture. There is air within the wall of the bladder and t here is air within the peritoneal space. This has likely occurred in the setting of emphysematous cys titis and infection of the bladder wall. Contrast is seen to partially surround several bowel loops w ithin the right low abdomen which appear thick walled, likely reactive to the underlying infection. Vessels: Scattered atherosclerotic calcifications seen throughout a nonaneurysmal abdominal aorta and branches. Musculoskeletal / Body wall: Degenerative changes involve the spine. IMPRESSION: 1. Delayed CT images consistent with intraperitoneal rupture of the bladder. Rupture has occurred in the region of the bladder dome with spillage of urine and contrast into the abdomen and pelvis. 2. Air within the wall of the bladder and within the surrounding soft tissues at the site of rupture in keeping with infection and emphysematous cystitis. Findings were discussed with Dr. Douglas by telephone at the time of dictation. Report Dictated By: Dominik Mays at 12/21/2017 2:57 PM Report E-Signed By: Dominik Mays at 12/21/2017 3:14 PM WSN:[id number]
[2017-12-21] MEDS ORDERED: LIDOCAINE 2% 200MG/10ML UROJET TP ONE (15:20)
[2017-12-21] MEDS ORDERED: fentaNYL CITR 100 MCG/2 ML AMP IVP ONE (15:55)
== END 2017-12-21 17:00 | disposition short-term general hospital (02) ==
LOC: ER 11:55
DX: N32.89 Other specified disorders of bladder (principal); M48.02 Spinal stenosis, cervical region; N30.01 Acute cystitis with hematuria; E87.5 Hyperkalemia; E87.1 Hypo-osmolality and hyponatremia
CPT/HCPCS: 36600; 71045; 74176; 74177; 81001; 82150; 83605; 83690; 85025; 86140; 87040; 87077; 87088; 87186; 93005; 94640; 96361; 96365; 96366; 96367; 96375; 99285; C1758; J0610; J2270; J2543; J3010; J7030; J7050; J7613; Q9967; 82040; 82247; 82310; 82374; 82435; 82565; 82947; 84075; 84132; 84155; 84295; 84450; 84460; 84520; J1815

== ENCOUNTER → 2017-12-21 | Outpatient (CLI) | payer MEDICAID ==
[2017-12-01 09:10] VITALS: BMI 30.1
[~2017-12-21] MED LIST changes: +ACET-1966 PO
== END ==
LOC: AMB 16:19
PROVIDERS: ATTEND Nurse Practitioner
DX: N32.89 Other specified disorders of bladder (principal)
CPT/HCPCS: A0425; A0426

== ENCOUNTER → 2017-12-21 | Outpatient (CLI) | payer MEDICAID ==
[2017-12-01 09:10] VITALS: BMI 30.1
== END ==
LOC: AMB 11:08
PROVIDERS: ATTEND Nurse Practitioner
DX: M54.5 Low back pain (principal); M54.2 Cervicalgia; M25.512 Pain in left shoulder; R07.89 Other chest pain; L89.309 Pressure ulcer of unspecified buttock, unspecified stage; R53.1 Weakness; R31.9 Hematuria, unspecified; I10 Essential (primary) hypertension
CPT/HCPCS: A0425; A0427

== ENCOUNTER 2018-02-13 09:31 | Emergency (ER) | payer MEDICAID ==
[2017-12-01 09:10] VITALS: Wt 83.9 kg
[2018-02-13 09:54] LABS: PLATELET COUNT, AUTOMATED 215 K/uL (150-450)
--- NOTE | 2018-02-13 09:55 | ER Report ---
History and Physical Time Seen By MD: 09:54 Hx. of Stated Complaint: HAS HAD CATHETHER IN FOR APPROX 30 DAYS FOLLOWING BLADDER RUPTURE. REPORTS THAT LAST NIGHT HE STARTED HAVING PAIN AND BURNING AND THIS AM IS WAS CLOGGED. HPI/ROS CHIEF COMPLAINT: Blocked Frost catheter HISTORY OF PRESENT ILLNESS: Patient is an extremely poor historian who presents to the emergency department with request to have his Frost catheter removed. Briefly this is a patient that has been seen multiple times in the emergency department early this year with the most recent ER visit on December 21 for generalized weakness complaint of inability to ambulate. 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 On December 21 he was found to have an elevated creatinine of 3.8 a BUN of 81 potassium is 6.1 and a sodium of 125. CT scan of the abdomen and pelvis showed a intraperitoneal bladder rupture. He was ultimately transferred to [facility] under Dr. Olvera. He underwent bladder repair at that time. He never followed up with urology because he was unable to get to his doctor's appointments as he does not drive. Additional history from EMS states that he lives with an uncle and a nephew and both of them were "high as a kite" when they picked this patient up today to bring him to the emergency department. He essentially gets no care for many of them. He is complaining of penile pain and feels that his Frost catheter may be blocked. For this reason he called an ambulance to come to the emergency department for evaluation. We will attempt to obtain medical records from [facility] to see what his hospital course and expected follow-up was supposed to be. Patient has a history of spinal stenosis and takes both Percocet and Flexeril for pain management. REVIEW OF SYSTEMS: Constitutional: No fever, no chills. Eyes: No discharge. ENT: No sore throat. Cardiovascular: No chest pain, no palpitations. Respiratory: No cough, no shortness of breath. Gastrointestinal: No abdominal pain, no vomiting. Genitourinary: Blocked Frost catheter Musculoskeletal: No back pain. Skin: No rashes. Neurological: No headache. Allergies: Coded Allergies: No Known Drug Allergies (Unverified , 01/09/12) Home Meds Discontinued Reported Medications Acetaminophen (TYLENOL) 325 Mg Tablet, 325 MG PO, TAB 12/21/17 Hx Smoking: Yes (1 PACK EVERY 2 DAYS) Hx Substance Use Disorder: No (marijuana) Hx Alcohol Use: Yes (OCCASIONALLY) Constitutional Vital Sign - Last 24 Hours 02/13/18 02/13/18 02/13/18 02/13/18 09:32 10:00 10:07 10:19 Temp 98.1 Pulse 95 105 Resp 16 B/P (MAP) 145/57 84/69 (74) 175/96 (122) 137/94 (108) Pulse Ox 96 95 O2 Delivery Room Air Physical Exam General/Constitutional: Patient is awake, alert, nontoxic and in no acute respiratory distress. Head: Normocephalic and atraumatic. Eyes: Conjunctival clear, Pupils are equal and reactive to light. Extraocular muscles are intact and symmetrical. Sclera are clear and anicteric. Ears:External canals are clear. Tympanic membranes are clear with normal landmarks and light reflex. Nares: No rhinorrhea or bleeding. Turbinates are pink and moist. Oropharyngeal: Mucous membranes are moist. There is no pharyngeal erythema or exudate. There are no palatal petechiae. Uvula is midline and symmetrical. Neck: Supple, no adenopathy. Cardiovascular: Heart is regular rate and rhythm without audible murmurs, rubs or gallops. Pulmonary: Lungs are clear to auscultation bilaterally. There are no wheezes, rales, or rhonchi. Chest rise is symmetrical Abdomen: Soft, nontender, no guarding or peritoneal signs. Extremities: No gross deformities, No peripheral cyanosis. Able to move all 4 extremities. Neuro: Alert and oriented X3, Cranial nerves 2 thru 12 are intact and symmetrical. Patient has normal gait. Skin: No rashes, skin is warm dry and well perfused. Medical Decision Making Data Points Result Diagram: 02/13/18 0944 02/13/18 0944 Laboratory Hematology Test 02/13/18 09:44 02/13/18 10:00 Red Blood Count 4.53 M/uL (4.00-5.60) Mean Corpuscular Volume 90.1 fL (80.0-96.0) Mean Corpuscular Hemoglobin 31.8 pg (26.0-33.0) Mean Corpuscular Hemoglobin Concent 35.3 g/dL (32.0-36.0) Red Cell Distribution Width 15.1 % (11.5-14.5) Mean Platelet Volume 7.5 fL (7.2-11.1) Neutrophils (%) (Auto) 55.3 % (39.4-72.5) Lymphocytes (%) (Auto) 31.3 % (17.6-49.6) Monocytes (%) (Auto) 7.7 % (4.1-12.4) Eosinophils (%) (Auto) 5.2 % (0.4-6.7) Basophils (%) (Auto) 0.5 % (0.3-1.4) Nucleated RBC Relative Count (auto) 0.1 /100WBC Neutrophils # (Auto) 4.3 K/uL (2.0-7.4) Lymphocytes # (Auto) 2.4 K/uL (1.3-3.6) Monocytes # (Auto) 0.6 K/uL (0.3-1.0) Eosinophils # (Auto) 0.4 K/uL (0.0-0.5) Basophils # (Auto) 0.0 K/uL (0.0-0.1) Nucleated RBC Absolute Count (auto) 0.01 K/uL Sodium Level 140 mmol/L (137-145) Potassium Level 4.3 mmol/L (3.5-5.0) Chloride Level 103 mmol/L (98-107) Carbon Dioxide Level 25 mmol/L (22-30) Blood Urea Nitrogen 10 mg/dl (9-21) Creatinine 0.70 mg/dl (0.66-1.25) Glomerular Filtration Rate Calc > 60.0 Random Glucose 123 mg/dl (75-110) Calcium Level 9.4 mg/dl (8.4-10.2) Total Bilirubin 0.6 mg/dl (0.2-1.3) Aspartate Amino Transf (AST/SGOT) 20 U/L (0-35) Alanine Aminotransferase (ALT/SGPT) 35 U/L (0-56) Alkaline Phosphatase 122 U/L (0-126) Total Protein 7.1 gm/dl (6.3-8.2) Albumin 3.5 g/dl (3.5-5.0) Urine Color Yellow Urine Clarity Cloudy Urine pH 8.0 pH (4.8-9.5) Urine Specific [place] 1.011 Urine Protein Negative mg/dL (NEGATIVE) Urine Glucose (UA) Negative mg/dL (NEGATIVE) Urine Ketones Negative mg/dL (NEGATIVE) Urine Blood Moderate (NEGATIVE) Urine Nitrite Negative (NEGATIVE) Urine Bilirubin Negative (NEGATIVE) Urine Urobilinogen Negative mg/dL (0.2-1.9) Urine Leukocyte Esterase Large (NEGATIVE) Urine RBC 44 /HPF (0-2/HPF) Urine WBC 156 /HPF (0-5/HPF) Urine WBC Clumps Many /HPF Urine Squamous Epithelial Cells Few /LPF (NONE-FEW) Urine Calcium Oxalate Crystals Few /HPF (NONE) Urine Bacteria Few /HPF (NONE-FEW) Urine Mucus None /HPF (NONE-FEW) Chemistry Test 02/13/18 09:44 02/13/18 10:00 White Blood Count 7.8 k/uL (4.5-11.0) Red Blood Count 4.53 M/uL (4.00-5.60) Hemoglobin 14.4 g/dL (14.0-18.0) Hematocrit 40.9 % (42.0-52.0) Mean Corpuscular Volume 90.1 fL (80.0-96.0) Mean Corpuscular Hemoglobin 31.8 pg (26.0-33.0) Mean Corpuscular Hemoglobin Concent 35.3 g/dL (32.0-36.0) Red Cell Distribution Width 15.1 % (11.5-14.5) Platelet Count 215 K/uL (150-450) Mean Platelet Volume 7.5 fL (7.2-11.1) Neutrophils (%) (Auto) 55.3 % (39.4-72.5) Lymphocytes (%) (Auto) 31.3 % (17.6-49.6) Monocytes (%) (Auto) 7.7 % (4.1-12.4) Eosinophils (%) (Auto) 5.2 % (0.4-6.7) Basophils (%) (Auto) 0.5 % (0.3-1.4) Nucleated RBC Relative Count (auto) 0.1 /100WBC Neutrophils # (Auto) 4.3 K/uL (2.0-7.4) Lymphocytes # (Auto) 2.4 K/uL (1.3-3.6) Monocytes # (Auto) 0.6 K/uL (0.3-1.0) Eosinophils # (Auto) 0.4 K/uL (0.0-0.5) Basophils # (Auto) 0.0 K/uL (0.0-0.1) Nucleated RBC Absolute Count (auto) 0.01 K/uL Glomerular Filtration Rate Calc > 60.0 Calcium Level 9.4 mg/dl (8.4-10.2) Total Bilirubin 0.6 mg/dl (0.2-1.3) Aspartate Amino Transf (AST/SGOT) 20 U/L (0-35) Alanine Aminotransferase (ALT/SGPT) 35 U/L (0-56) Alkaline Phosphatase 122 U/L (0-126) Total Protein 7.1 gm/dl (6.3-8.2) Albumin 3.5 g/dl (3.5-5.0) Urine Color Yellow Urine Clarity Cloudy Urine pH 8.0 pH (4.8-9.5) Urine Specific [place] 1.011 Urine Protein Negative mg/dL (NEGATIVE) Urine Glucose (UA) Negative mg/dL (NEGATIVE) Urine Ketones Negative mg/dL (NEGATIVE) Urine Blood Moderate (NEGATIVE) Urine Nitrite Negative (NEGATIVE) Urine Bilirubin Negative (NEGATIVE) Urine Urobilinogen Negative mg/dL (0.2-1.9) Urine Leukocyte Esterase Large (NEGATIVE) Urine RBC 44 /HPF (0-2/HPF) Urine WBC 156 /HPF (0-5/HPF) Urine WBC Clumps Many /HPF Urine Squamous Epithelial Cells Few /LPF (NONE-FEW) Urine Calcium Oxalate Crystals Few /HPF (NONE) Urine Bacteria Few /HPF (NONE-FEW) Urine Mucus None /HPF (NONE-FEW) Urinalysis Test 02/13/18 10:00 Urine Color Yellow Urine Clarity Cloudy Urine pH 8.0 pH (4.8-9.5) Urine Specific [place] 1.011 Urine Protein Negative mg/dL (NEGATIVE) Urine Glucose (UA) Negative mg/dL (NEGATIVE) Urine Ketones Negative mg/dL (NEGATIVE) Urine Blood Moderate (NEGATIVE) Urine Nitrite Negative (NEGATIVE) Urine Bilirubin Negative (NEGATIVE) Urine Urobilinogen Negative mg/dL (0.2-1.9) Urine Leukocyte Esterase Large (NEGATIVE) Urine RBC 44 /HPF (0-2/HPF) Urine WBC 156 /HPF (0-5/HPF) Urine WBC Clumps Many /HPF Urine Squamous Epithelial Cells Few /LPF (NONE-FEW) Urine Calcium Oxalate Crystals Few /HPF (NONE) Urine Bacteria Few /HPF (NONE-FEW) Urine Mucus None /HPF (NONE-FEW) Microbiology Microbiology Date/Time Source Procedure Growth Status 02/13/18 10:00 Frost Catheter Urine Urine Culture - Preliminary Gram Negative Todd Resulted ED Course/Re-evaluation Clinical Indication for ER IV: IV Access ED Course 02/13/2018 10:39:41 am bedside ultrasound was performed which verifies and intact bladder with balloon located inside the bladder. There is no extra peritoneal fluid. Only catheter was removed and sample sent for culture and sensitivity along with urinalysis. We will check baseline labs including chemistry panel and CBC. Patient was able to void post-Frost catheter removal. Reports feeling much better. 02/13/2018 10:45:22 am bloodwork essentially normal. Creatinine clearance is normal. Normal white blood cell count. Urinalysis is suggestive of a possible infection. Plan will be to treat him with 1 g of IV Rocephin. 02/13/2018 10:53:21 am because patient is usually poor with follow-up plan will be to discharge patient home with 4, 500 mg cephalexin. Patient will be instructed to take one tablet tomorrow morning and 1 at bedtime and then one following day in the morning and again one the following night. We are also currently waiting case management come down to talk to the patient about assisting with arranging for more routine medical care. Decision to Disposition Date: Feb 13, 2018 Decision to Disposition Time: 10:54 Depart Departure Latest Vital Signs Vital Signs Date Time Temp Pulse Resp B/P (MAP) Pulse Ox O2 Delivery O2 Flow Rate FiO2 02/13/18 10:19 137/94 (108) 02/13/18 10:00 105 95 02/13/18 09:32 98.1 16 Room Air Impression: Primary Impression: Frost catheter problem Additional Impression: Pyuria Condition: Improved New Scripts No Active Prescriptions or Reported Meds Patient Instructions: Urinary Tract Infection in Men (DC) Additional Instructions: You were given 4 tablets of cephalexin 500 mg. You should start taking these tomorrow. You should take one 500 mg tablet in the morning and again one 500 mg tablet at bedtime and then repeat this following day. Problem Qualifiers Primary Impression: Frost catheter problem Encounter type: initial encounter Qualified Codes: T83.9XXA - Unspecified complication of genitourinary prosthetic device, implant and graft, initial encounter MARGOT WOLF MD Feb 13, 2018 09:55
[2018-02-13 10:19] VITALS: BP 137/94
[2018-02-13] MEDS ORDERED: cefTRIAXone 1 GM VIAL IVP ONE (10:35)
[2018-02-13] MEDS ORDERED: CEPHALEXIN 500 MG CAP TH 2 CAP/BOTTLE PO ONE (10:55)
== END 2018-02-13 13:15 | disposition home or self-care (01) ==
LOC: ER 09:32
DX: T83.9XXA Unspecified complication of genitourinary prosthetic device, implant and graft, initial encounter (principal); N39.0 Urinary tract infection, site not specified
CPT/HCPCS: 81001; 85025; 87077; 87088; 87186; 96374; 99284; J0696; 82040; 82247; 82310; 82374; 82435; 82565; 82947; 84075; 84132; 84155; 84295; 84450; 84460; 84520

== ENCOUNTER → 2018-02-13 | Outpatient (CLI) | payer MEDICAID ==
[2017-12-01 09:10] VITALS: BMI 30.1
[~2018-02-13] MED LIST changes: +ACET-1966 PO
== END ==
LOC: AMB 09:03
PROVIDERS: ATTEND Nurse Practitioner
DX: R39.89 Other symptoms and signs involving the genitourinary system (principal); G82.20 Paraplegia, unspecified
CPT/HCPCS: A0425; A0427

== ENCOUNTER → 2018-02-13 | Outpatient (CLI) | payer MEDICAID ==
[2017-12-01 09:10] VITALS: BMI 30.1
== END ==
LOC: AMB 13:05
PROVIDERS: ATTEND Nurse Practitioner
DX: N39.0 Urinary tract infection, site not specified (principal); G82.20 Paraplegia, unspecified
CPT/HCPCS: A0425; A0428

== ENCOUNTER 2018-03-08 16:34 | Inpatient (IN) | payer MEDICAID ==
[2017-12-01 09:10] VITALS: Ht 175.3 cm; Wt 77.1 kg
[~2018-03-08] VITALS: Ht 175.3 cm; Wt 77.1 kg
--- NOTE | 2018-03-08 16:50 | ER Report ---
History and Physical Time Seen By MD: 16:50 Hx. of Stated Complaint: PATIENT STATES THAT HE IS IN PAIN FROM THE NECK DOWN; BED SORE ON HIS RIGHT INNER BUTTOCK (STAGE 2), STATES THAT HE RAN OUT OF PAIN MEDCATION SINCE HIS SURGERY IN 01/14/2018 HPI/ROS CHIEF COMPLAINT: Pain HISTORY OF PRESENT ILLNESS: This is a 47-year-old male who presents to the emergency department for chronic pain. Patient states that he has had chronic pain secondary to cervical and thoracic spine stenosis he recently had surgery for the stenosis and was given some oxycodone states he recently ran out and now the pain and states his symptoms have become worse over the last several days. Patient states that he has nobody to help him at home. Patient states he' s been laying on the floor not able to care for himself now he's not able to get up he feels like he is becoming weak again. He denies aches or chills loss of bowel or bladder no saddle anesthesia. He does have a dime-sized cubitus ulcer stage roughly 2 on his right medial buttock. Patient states this is been getting worse since he just been laying on the floor his house. Patient also states that after the surgery he was in one of the [facility] centers and checked out AMA and came back to [place] he felt like he could manage better at home. No chest pain or shortness of breath. I did remove the c- collar that was placed on the patient upon arrival. Negative Nexus criteria. REVIEW OF SYSTEMS: Constitutional: No fever, no chills. Eyes: No discharge. ENT: No sore throat. Cardiovascular: No chest pain, no palpitations. Respiratory: No cough, no shortness of breath. Gastrointestinal: No abdominal pain, no vomiting. Genitourinary: No hematuria. Musculoskeletal: As above. Skin: No rashes. Neurological: No headache. 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 Reviewed Nurses Notes: Yes Hx Smoking: Yes (1 PACK EVERY 2 DAYS) Hx Substance Use Disorder: No (marijuana) Hx Alcohol Use: Yes (OCCASIONALLY) Constitutional Vital Sign - Last 24 Hours 03/08/18 03/08/18 03/08/18 03/08/18 16:34 16:35 16:37 17:04 Temp 97.6 Pulse 103 102 97 Resp 18 B/P (MAP) 137/106 (116) 137/106 Pulse Ox 97 93 96 O2 Delivery Room Air 03/08/18 03/08/18 03/08/18 03/08/18 17:28 17:39 17:44 18:00 Pulse 88 93 B/P (MAP) 143/100 (114) 128/91 (103) Pulse Ox 87 94 03/08/18 03/08/18 18:14 18:19 Pulse 85 85 Pulse Ox 92 93 Physical Exam General Appearance: The patient is alert, has no immediate need for airway protection and no signs of toxicity. Eyes: Pupils equal and round no pallor or injection. ENT, Mouth: Mucous membranes are moist. Respiratory: There are no retractions, lungs are clear to auscultation. Cardiovascular: Regular rate and rhythm, no murmurs, clicks or rubs. Gastrointestinal: Abdomen is soft, tenderness to the pubis, no masses, bowel sounds normal. Neurological: Alert and oriented 4. Moving all extremities. Following all commands. No focal neuro deficits. Patient is able to lift hands and legs off the gurney. Skin: Warm and dry, no rashes. Patient does have a decubitus ulcer measuring approximately 3cm, stage 2, to the medial side of the right buttock, with some erythema surrounding the wound, no cellulitis. Musculoskeletal: Neck is supple non tender. Extremities are nontender, nonswollen and have full range of motion. DIFFERENTIAL DIAGNOSIS: After history and physical exam differential diagnosis was considered for urinary tract infection, intractable pain, acute as ulcer, sepsis, pyelonephritis and spinal abscess. Medical Decision Making Data Points Result Diagram: 03/08/18171603/08/181716 Laboratory Hematology Test 03/08/18 15:17 03/08/18 17:17 Urine Color Yellow Urine Clarity Turbid Urine pH 6.0 pH (4.8-9.5) Urine Specific [place] 1.009 Urine Protein 30 mg/dL (NEGATIVE) Urine Glucose (UA) Negative mg/dL (NEGATIVE) Urine Ketones Negative mg/dL (NEGATIVE) Urine Blood Moderate (NEGATIVE) Urine Nitrite Positive (NEGATIVE) Urine Bilirubin Negative (NEGATIVE) Urine Urobilinogen Negative mg/dL (0.2-1.9) Urine Leukocyte Esterase Large (NEGATIVE) Urine RBC 26 /HPF (0-2/HPF) Urine WBC 1449 /HPF (0-5/HPF) Urine WBC Clumps Many /HPF Urine Squamous Epithelial Cells None /LPF (</=FEW) Urine Bacteria Many /HPF (NONE-FEW) Urine Mucus None /HPF (NONE-FEW) Red Blood Count 5.21 M/uL (4.00-5.60) Mean Corpuscular Volume 90.5 fL (80.0-96.0) Mean Corpuscular Hemoglobin 31.7 pg (26.0-33.0) Mean Corpuscular Hemoglobin Concent 35.0 g/dL (32.0-36.0) Red Cell Distribution Width 14.5 % (11.5-14.5) Mean Platelet Volume 7.8 fL (7.2-11.1) Neutrophils (%) (Auto) 54.4 % (39.4-72.5) Lymphocytes (%) (Auto) 34.8 % (17.6-49.6) Monocytes (%) (Auto) 7.7 % (4.1-12.4) Eosinophils (%) (Auto) 2.7 % (0.4-6.7) Basophils (%) (Auto) 0.4 % (0.3-1.4) Nucleated RBC Relative Count (auto) 0.0 /100WBC Neutrophils # (Auto) 5.3 K/uL (2.0-7.4) Lymphocytes # (Auto) 3.4 K/uL (1.3-3.6) Monocytes # (Auto) 0.7 K/uL (0.3-1.0) Eosinophils # (Auto) 0.3 K/uL (0.0-0.5) Basophils # (Auto) 0.0 K/uL (0.0-0.1) Nucleated RBC Absolute Count (auto) 0.00 K/uL Sodium Level 141 mmol/L (137-145) Potassium Level 4.1 mmol/L (3.5-5.0) Chloride Level 100 mmol/L (98-107) Carbon Dioxide Level 26 mmol/L (22-30) Blood Urea Nitrogen 12 mg/dl (9-21) Creatinine 0.90 mg/dl (0.66-1.25) Glomerular Filtration Rate Calc > 60.0 Random Glucose 100 mg/dl (75-110) Calcium Level 9.8 mg/dl (8.4-10.2) Total Bilirubin 0.5 mg/dl (0.2-1.3) Aspartate Amino Transf (AST/SGOT) 20 U/L (0-35) Alanine Aminotransferase (ALT/SGPT) 32 U/L (0-56) Alkaline Phosphatase 110 U/L (0-126) Total Protein 8.0 gm/dl (6.3-8.2) Albumin 4.1 g/dl (3.5-5.0) Chemistry Test 03/08/18 15:17 03/08/18 17:17 Urine Color Yellow Urine Clarity Turbid Urine pH 6.0 pH (4.8-9.5) Urine Specific [place] 1.009 Urine Protein 30 mg/dL (NEGATIVE) Urine Glucose (UA) Negative mg/dL (NEGATIVE) Urine Ketones Negative mg/dL (NEGATIVE) Urine Blood Moderate (NEGATIVE) Urine Nitrite Positive (NEGATIVE) Urine Bilirubin Negative (NEGATIVE) Urine Urobilinogen Negative mg/dL (0.2-1.9) Urine Leukocyte Esterase Large (NEGATIVE) Urine RBC 26 /HPF (0-2/HPF) Urine WBC 1449 /HPF (0-5/HPF) Urine WBC Clumps Many /HPF Urine Squamous Epithelial Cells None /LPF (</=FEW) Urine Bacteria Many /HPF (NONE-FEW) Urine Mucus None /HPF (NONE-FEW) White Blood Count 9.7 k/uL (4.5-11.0) Red Blood Count 5.21 M/uL (4.00-5.60) Hemoglobin 16.5 g/dL (14.0-18.0) Hematocrit 47.1 % (42.0-52.0) Mean Corpuscular Volume 90.5 fL (80.0-96.0) Mean Corpuscular Hemoglobin 31.7 pg (26.0-33.0) Mean Corpuscular Hemoglobin Concent 35.0 g/dL (32.0-36.0) Red Cell Distribution Width 14.5 % (11.5-14.5) Platelet Count 224 K/uL (150-450) Mean Platelet Volume 7.8 fL (7.2-11.1) Neutrophils (%) (Auto) 54.4 % (39.4-72.5) Lymphocytes (%) (Auto) 34.8 % (17.6-49.6) Monocytes (%) (Auto) 7.7 % (4.1-12.4) Eosinophils (%) (Auto) 2.7 % (0.4-6.7) Basophils (%) (Auto) 0.4 % (0.3-1.4) Nucleated RBC Relative Count (auto) 0.0 /100WBC Neutrophils # (Auto) 5.3 K/uL (2.0-7.4) Lymphocytes # (Auto) 3.4 K/uL (1.3-3.6) Monocytes # (Auto) 0.7 K/uL (0.3-1.0) Eosinophils # (Auto) 0.3 K/uL (0.0-0.5) Basophils # (Auto) 0.0 K/uL (0.0-0.1) Nucleated RBC Absolute Count (auto) 0.00 K/uL Glomerular Filtration Rate Calc > 60.0 Calcium Level 9.8 mg/dl (8.4-10.2) Total Bilirubin 0.5 mg/dl (0.2-1.3) Aspartate Amino Transf (AST/SGOT) 20 U/L (0-35) Alanine Aminotransferase (ALT/SGPT) 32 U/L (0-56) Alkaline Phosphatase 110 U/L (0-126) Total Protein 8.0 gm/dl (6.3-8.2) Albumin 4.1 g/dl (3.5-5.0) Urinalysis Test 03/08/18 15:17 Urine Color Yellow Urine Clarity Turbid Urine pH 6.0 pH (4.8-9.5) Urine Specific [place] 1.009 Urine Protein 30 mg/dL (NEGATIVE) Urine Glucose (UA) Negative mg/dL (NEGATIVE) Urine Ketones Negative mg/dL (NEGATIVE) Urine Blood Moderate (NEGATIVE) Urine Nitrite Positive (NEGATIVE) Urine Bilirubin Negative (NEGATIVE) Urine Urobilinogen Negative mg/dL (0.2-1.9) Urine Leukocyte Esterase Large (NEGATIVE) Urine RBC 26 /HPF (0-2/HPF) Urine WBC 1449 /HPF (0-5/HPF) Urine WBC Clumps Many /HPF Urine Squamous Epithelial Cells None /LPF (</=FEW) Urine Bacteria Many /HPF (NONE-FEW) Urine Mucus None /HPF (NONE-FEW) ED Course/Re-evaluation Clinical Indication for ER IV: Hydration, IV Access ED Course The patient was admitted to a room. A history and physical were obtained. Differential diagnoses were considered. An IV was started. A CBC, CMP were obtained. Lab studies unremarkable. A UA was obtained which showed a gross urinary tract infection. Patient was given 1 g of ceftriaxone. I did discuss this case with Dr. Camacho the hospitalist on-call, given the patient's recent surgery his inability to manage and take care of himself at home, the new decubitus ulcer, and his worsening pain elected to admit this patient for pain control, wound care management, and possible extended care admission or home health management with psychiatric social worker. Patient was in agreement with this plan of care. Patient was given 1 L of normal saline. Patient was also given 30 mg of IV Norflex. 03/08/2018 6:00:53 pm I did speak with Dr. Camacho the hospitalist senior communications engineer regarding the patient's case and he has agreed to admit the patient for pain control, wound care for the new decubitus ulcer, and evaluation for extended wound care and home health management and urinary tract infection. Decision to Disposition Date: Mar 08, 2018 Decision to Disposition Time: 18:04 Depart Departure Latest Vital Signs Vital Signs Date Time Temp Pulse Resp B/P (MAP) Pulse Ox O2 Delivery O2 Flow Rate FiO2 03/08/18 18:19 85 93 03/08/18 18:00 128/91 (103) 03/08/18 16:37 97.6 18 Room Air Impression: Primary Impression: Inadequate pain control Additional Impressions: UTI (urinary tract infection) Decubitus ulcer Condition: Improved Disposition: Admitted from ER New Scripts No Active Prescriptions or Reported Meds Problem Qualifiers Additional Impressions: UTI (urinary tract infection) Urinary tract infection type: site unspecified Hematuria presence: with hematuria Qualified Codes: N39.0 - Urinary tract infection, site not specified ; R31.9 - Hematuria, unspecified Decubitus ulcer Pressure ulcer location: buttock Pressure ulcer stage: stage 2 Laterality: right Qualified Codes: L89.312 - Pressure ulcer of right buttock, stage 2 KRISS SALCIDO RECREATION AIDE- Mar 08, 2018 16:50
[2018-03-08] MEDS ORDERED: ORPHENADRINE 60MG/2ML INJ IVP ONE (17:15)
[2018-03-08 17:23] LABS: PLATELET COUNT, AUTOMATED 224 K/uL (150-450)
[2018-03-08] MEDS ORDERED: NS(*) 0.9% 1000 ML BAG 1,000 ML IV ONE (18:05)
[2018-03-08] MEDS ORDERED: cefTRIAXone(*) 1 GM VIAL 1 GM in NS(*) 0.9% 100 ML ADDVANT BAG 100 ML IVPB ONE (18:05)
[2018-03-08 18:43] VITALS: BP 118/83
[2018-03-08] MEDS ORDERED: MORPHINE 4 MG/ML SDV IVP PRN (19:45)
[2018-03-08] MEDS ORDERED: NS(*) 0.9% 1000 ML BAG 1,000 ML IV PRN (19:45)
[2018-03-08] MEDS ORDERED: ONDANSETRON 4 MG/2 ML VIAL IVP PRN (19:45)
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
[2018-03-08] MEDS: ENOXAPARIN 40 MG/0.4ML SYR SC SCH (21:16)
[2018-03-08] MEDS: ACETAMINOPHEN 325 MG TAB PO PRN (21:25)
[2018-03-09 05:42] VITALS: BP 133/87
[2018-03-09] MEDS ORDERED: NICOTINE INH SYSTEM 10 MG/INH INH PRN (08:10)
[2018-03-09] MEDS ORDERED: cefTRIAXone 1 GM VIAL IVP SCH (09:00)
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
[2018-03-09] MEDS: PANTOPRAZOLE SOD 40 MG IV VIAL IVP SCH (10:33)
[2018-03-09] MEDS: LEVOFLOXACIN/D5W 750 MG/150 ML 150 ML IVPB SCH (10:34)
[2018-03-09 11:21] VITALS: BP 144/93
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
[2018-03-09 15:30] VITALS: BP 140/89
[2018-03-09] MEDS: ACETAMINOPHEN 325 MG TAB PO PRN ×2 (15:41→21:30)
[2018-03-09] MEDS ORDERED: cefTRIAXone(*) 1 GM VIAL 1 GM in NS(*) 0.9% 100 ML ADDVANT BAG 100 ML IVPB SCH (18:00)
[2018-03-09 20:30] VITALS: BP_SYST 137; BP_SYST 140; BP_DIAS 89; BP_DIAS 90
[2018-03-09] MEDS: ENOXAPARIN 40 MG/0.4ML SYR SC SCH (21:30)
[2018-03-09] MEDS: CYCLOBENZAPRINE HCL 10 MG TAB PO PRN (22:56)
[2018-03-10 00:45] VITALS: BP 136/99
[2018-03-10 04:10] VITALS: BP 148/97
[2018-03-10 08:10] VITALS: BP 158/110
[2018-03-10] MEDS: PANTOPRAZOLE SOD 40 MG IV VIAL IVP SCH (08:59)
[2018-03-10] MEDS: NICOTINE 21 MG/24 HR PATCH TD ONE ×2 (09:15→09:45)
--- NOTE | 2018-03-10 09:23 | Antimicrobial Stewardship ---
Antimicrobial Time Out Antimicrobial Stewardship MD Service: Hospitalist Indications: UTI Antimicrobial Used Levofloxacin- based on prior cultures and sensitivities Start Date: Mar 09, 2018 Culture Results: Yes (Urine Cx pending: >100,000 cfu GNR) Eligible for PO Conversion Eligable for PO Conversion: Yes (03/10/18: May convert to 750 mg po daily, afebrile, no leukocytosis) Reviewed with Provider Reviewed w/ Provider on Rounds: Yes Date Reviewed w/ Provider: Mar 10, 2018 Comments Comments Recommend switch to po levofloxacin pending sensitivities. Will keep on IV levofloxacin x 1 more day, then depending on sensitivities, de-escalate therapy as appropriate and transition to oral antibiotics. Tmax in last 24 h was 99.6. Watch closely, WBC within normal limits. Janett Seymour, PharmD, BCOP JANETT SEYMOUR Mar 10, 2018 09:18
[2018-03-10] MEDS: amLODIPine BESYL(*) 2.5 MG TAB PO SCH (09:44)
[2018-03-10] MEDS: PREGABALIN 50 MG CAP PO SCH ×2 (09:44→21:23)
[2018-03-10] MEDS: LEVOFLOXACIN/D5W 750 MG/150 ML 150 ML IVPB SCH (10:12)
[2018-03-10 10:50] VITALS: BP 146/101
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
[2018-03-10] MEDS: ACETAMINOPHEN 325 MG TAB PO PRN (11:12)
[2018-03-10 20:10] VITALS: BP 146/101
[2018-03-10] MEDS: ENOXAPARIN 40 MG/0.4ML SYR SC SCH (21:23)
[2018-03-11 01:37] VITALS: BP 120/96
[2018-03-11 05:48] VITALS: BP 120/96
[2018-03-11] MEDS: CYCLOBENZAPRINE HCL 10 MG TAB PO PRN (05:52)
[2018-03-11 08:05] VITALS: BP 119/82
[2018-03-11] MEDS: amLODIPine BESYL(*) 2.5 MG TAB PO SCH (08:15)
[2018-03-11] MEDS: PREGABALIN 50 MG CAP PO SCH ×2 (08:15→20:44)
[2018-03-11] MEDS: PANTOPRAZOLE SOD 40 MG IV VIAL IVP SCH (08:16)
[2018-03-11] MEDS ORDERED: NICOTINE 14 MG/24 HR PATCH TD SCH (09:00)
[2018-03-11] MEDS: LEVOFLOXACIN 750 MG TAB PO SCH (09:22)
[2018-03-11 11:13] VITALS: BP 123/87
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
[2018-03-11 15:00] VITALS: BP 122/91
[2018-03-11 18:57] VITALS: BP 113/79
[2018-03-11] MEDS: ENOXAPARIN 40 MG/0.4ML SYR SC SCH (20:45)
[2018-03-12 03:09] VITALS: BP 102/59
[2018-03-12 07:58] VITALS: BP 121/85
[2018-03-12] MEDS: PREGABALIN 50 MG CAP PO SCH ×2 (08:20→20:31)
[2018-03-12] MEDS: amLODIPine BESYL(*) 2.5 MG TAB PO SCH (08:20)
[2018-03-12] MEDS: PANTOPRAZOLE SOD 40 MG IV VIAL IVP SCH (08:20)
[2018-03-12] MEDS: LEVOFLOXACIN 750 MG TAB PO SCH (09:36)
--- NOTE | 2018-03-12 11:15 | Hospitalist Progress Note ---
Subjective Progress Notes Subjective This patient was admitted for a urinary infection. He had no acute changes overnight. Patient Complains of: Cardiovascular: No: Chest Pain Respiratory: No: Shortness of Breath Physical Exam Vital Signs Date Time Temp Pulse Resp B/P (MAP) Pulse Ox O2 Delivery O2 Flow Rate FiO2 03/12/18 08:06 93 Room Air 03/12/18 07:58 98.1 103 16 121/85 (97) Intake and Output 03/13/18 07:00 # Voids 1 # Bowel Movements 1 Cardiovascular: Regular Rate and Rhythm Respiratory: Clear to Auscultation Extremities: No Edema Integumentary: No Cyanosis Result Diagram: 03/09/18 0524 03/08/18 1717 Item Value Date Time Urine Culture - Final Complete 03/09/18 0000 Clean Catch Midstream Ur Klebsiella Oxytoca Assessment and Plan Problems: (1) UTI (urinary tract infection) Status: Acute Assessment & Plan: He was noted to have nitrates and leukocytes in his urine. His culture was positive for Klebsiella. He is on treatment with oral levofloxacin. (2) Decubitus ulcer Status: Acute Assessment & Plan: He is being followed by the wound care team. (3) Paraplegia Status: Chronic Assessment & Plan: He is planning to discharge to [facility] for ongoing rehab. (4) Hypertension Status: Acute Assessment & Plan: He has been started on treatment with Norvasc. Exam Sepsis Risk: No Definite Risk Problem Qualifiers (1) UTI (urinary tract infection): Urinary tract infection type: site unspecified Hematuria presence: with hematuria Qualified Codes: N39.0 - Urinary tract infection, site not specified ; R31.9 - Hematuria, unspecified (2) Decubitus ulcer: Pressure ulcer location: buttock Pressure ulcer stage: stage 3 Laterality: right Qualified Codes: L89.313 - Pressure ulcer of right buttock, stage 3 (3) Hypertension: Hypertension type: essential hypertension Qualified Codes: I10 - Essential ( primary) hypertension GRIFFIN EARLY DO Mar 12, 2018 11:15
[2018-03-12 11:23] VITALS: BP 132/97
[2018-03-12 15:08] VITALS: BP 133/88
[2018-03-12 19:49] VITALS: BP 142/92
[2018-03-12] MEDS: ENOXAPARIN 40 MG/0.4ML SYR SC SCH (20:32)
[2018-03-13 05:01] VITALS: BP 124/73
[2018-03-13 07:56] VITALS: BP 119/78
[2018-03-13] MEDS: PREGABALIN 50 MG CAP PO SCH ×2 (08:55→20:50)
[2018-03-13] MEDS: amLODIPine BESYL(*) 2.5 MG TAB PO SCH (08:55)
[2018-03-13] MEDS: PANTOPRAZOLE SOD 40 MG IV VIAL IVP SCH (08:56)
[2018-03-13] MEDS: LEVOFLOXACIN 750 MG TAB PO SCH (09:41)
[2018-03-13] MEDS: CYCLOBENZAPRINE HCL 10 MG TAB PO PRN ×2 (12:29→20:51)
--- NOTE | 2018-03-13 13:52 | Hospitalist Progress Note ---
Subjective Progress Notes Subjective The patient reports for the last couple of weeks, he has had more hand tingling and weakness. PT is reporting overall improvement in his ability to work with them. Physical Exam Vital Signs Date Time Temp Pulse Resp B/P (MAP) Pulse Ox O2 Delivery O2 Flow Rate FiO2 03/13/18 08:02 94 Room Air 03/13/18 07:56 98.0 108 16 119/78 (92) Intake and Output 03/14/18 07:00 # Voids 1 # Bowel Movements 1 General Appearance: Alert, Awake, No Acute Distress Result Diagram: 03/09/18 0524 Assessment and Plan Problems: (1) Paraplegia Status: Chronic Assessment & Plan: Today, for the first time since admission, he is reporting that for the last couple of weeks he has had more hand tingling/weakness and LE weakness. However, he is not demonstrating regression from OT/PT. His exam is relatively unchanged. Dr. Avalos recommended a plain film to establish a baseline film since surgery, but didn't feel that an MRI was indicated and that the patient should continue working with therapy. He is planning to discharge to [facility] for ongoing rehab. (2) UTI (urinary tract infection) Status: Acute Assessment & Plan: He was noted to have nitrates and leukocytes in his urine. His culture was positive for Klebsiella. He is on treatment with oral levofloxacin. (3) Decubitus ulcer Status: Acute Assessment & Plan: He is being followed by the wound care team. (4) Hypertension Status: Acute Assessment & Plan: He has been started on treatment with Norvasc. Exam Sepsis Risk: No Definite Risk Problem Qualifiers (1) UTI (urinary tract infection): Urinary tract infection type: site unspecified Hematuria presence: with hematuria Qualified Codes: N39.0 - Urinary tract infection, site not specified ; R31.9 - Hematuria, unspecified (2) Decubitus ulcer: Pressure ulcer location: buttock Pressure ulcer stage: stage 3 Laterality: right Qualified Codes: L89.313 - Pressure ulcer of right buttock, stage 3 (3) Hypertension: Hypertension type: essential hypertension Qualified Codes: I10 - Essential ( primary) hypertension RICA PERAZA MD Mar 13, 2018 13:52
[2018-03-13 14:57] VITALS: BP 136/94
--- NOTE | 2018-03-13 15:56 | RADIOLOGY IMAGING REPORT ---
FACILITY: [facility] PATIENT NAME: Je Mcgarry : 1970 MR: [id number] V: [id number] EXAM DATE: ORDERING PHYSICIAN: RICA PERAZA TECHNOLOGIST: Location: [facility] Patient: Je Mcgarry : 1970 Visit/Account:[id number] Date of Sevice: 03/13/2018 Exam type: CERVICAL SPINE 2 OR 3 VIEW History: cervical stenosis Comparison: MR cervical spine November 30, 2017. Findings: Three views of the cervical spine reveal postsurgical changes from anterior fusion of C4, C5 and C6 w ith anterior plate and screws and intervertebral support cages. The vertebral bodies appear in good anatomic alignment. No hardware complication is identified. IMPRESSION: 1. Postsurgical changes from anterior fusion at C4, C5 and C6 with the vertebral bodies appearing in good anatomic alignment. Report Dictated By: Ene Johnson MD at 03/13/2018 3:51 PM Report E-Signed By: Ene Johnson MD at 03/13/2018 3:53 PM WSN:[email or web address]
[2018-03-13 18:59] VITALS: BP 154/109
[2018-03-13] MEDS: ENOXAPARIN 40 MG/0.4ML SYR SC SCH (20:49)
[2018-03-14 05:42] VITALS: BP 125/79
[2018-03-14 07:40] VITALS: BP 117/79
[2018-03-14] MEDS: PANTOPRAZOLE SOD 40 MG IV VIAL IVP SCH (09:52)
[2018-03-14] MEDS: LEVOFLOXACIN 750 MG TAB PO SCH (09:53)
[2018-03-14] MEDS: PREGABALIN 50 MG CAP PO SCH ×2 (09:53→20:49)
[2018-03-14] MEDS: amLODIPine BESYL(*) 2.5 MG TAB PO SCH (09:53)
--- NOTE | 2018-03-14 09:59 | Hospitalist Progress Note ---
Subjective Progress Notes Subjective He reports no significant change. He has periodic spasms/neuropathic-type pains involving upper and lower extremities. Physical Exam Vital Signs Date Time Temp Pulse Resp B/P (MAP) Pulse Ox O2 Delivery O2 Flow Rate FiO2 03/14/18 07:41 Room Air 03/14/18 07:40 98.9 98 12 117/79 (92) 94 General Appearance: Alert, Awake Neuro: Other (chronic quadriparesis unchanged) Cardiovascular: Regular Rate and Rhythm Respiratory: Clear to Auscultation GI: Soft and Non-Tender Extremities: Warm, Perfused Assessment and Plan Problems: (1) Paraplegia Status: Chronic Assessment & Plan: He is not demonstrating regression as per OT/PT. His exam is relatively unchanged. Dr. Avalos recommended a plain film to establish a baseline film since surgery, but didn't feel that an MRI was indicated and that the patient should continue working with therapy. He is planning to discharge to [facility] for ongoing rehab. (2) UTI (urinary tract infection) Status: Acute Assessment & Plan: He was noted to have nitrates and leukocytes in his urine. His culture was positive for Klebsiella. He is on treatment with oral levofloxacin. (3) Decubitus ulcer Status: Acute Assessment & Plan: He is being followed by the wound care team. (4) Hypertension Status: Acute Assessment & Plan: He has been started on treatment with Norvasc. Exam Sepsis Risk: No Definite Risk Problem Qualifiers (1) UTI (urinary tract infection): Urinary tract infection type: site unspecified Hematuria presence: with hematuria Qualified Codes: N39.0 - Urinary tract infection, site not specified ; R31.9 - Hematuria, unspecified (2) Decubitus ulcer: Pressure ulcer location: buttock Pressure ulcer stage: stage 3 Laterality: right Qualified Codes: L89.313 - Pressure ulcer of right buttock, stage 3 (3) Hypertension: Hypertension type: essential hypertension Qualified Codes: I10 - Essential ( primary) hypertension DAVID BANUELOS MD Mar 14, 2018 09:59
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
[2018-03-14 19:56] VITALS: BP 150/90
[2018-03-14] MEDS: ENOXAPARIN 40 MG/0.4ML SYR SC SCH (20:50)
[2018-03-15 06:48] LABS: PLATELET COUNT, AUTOMATED 163 K/uL (150-450)
[2018-03-15 09:37] VITALS: BP 110/81
[2018-03-15] MEDS: PREGABALIN 50 MG CAP PO SCH ×2 (09:39→20:34)
[2018-03-15] MEDS: PANTOPRAZOLE SOD 40 MG TABEC PO SCH (09:39)
[2018-03-15] MEDS: amLODIPine BESYL(*) 2.5 MG TAB PO SCH (09:40)
[2018-03-15] MEDS: LEVOFLOXACIN 750 MG TAB PO SCH (09:40)
--- NOTE | 2018-03-15 10:49 | Hospitalist Progress Note ---
Subjective Progress Notes Subjective This patient was admitted for a urinary infection. He had no acute events overnight. Patient Complains of: Cardiovascular: No: Chest Pain Respiratory: No: Shortness of Breath Physical Exam Vital Signs Date Time Temp Pulse Resp B/P (MAP) Pulse Ox O2 Delivery O2 Flow Rate FiO2 03/15/18 09:41 93 Room Air 03/15/18 09:37 98.2 105 12 110/81 (91) Intake and Output 03/16/18 07:00 # Voids 1 Cardiovascular: Regular Rate and Rhythm Respiratory: Clear to Auscultation Extremities: No Edema Integumentary: No Cyanosis Result Diagram: 03/15/18 0548 03/15/18 0548 Item Value Date Time Urine Culture - Final Complete 03/09/18 0000 Clean Catch Midstream Ur Klebsiella Oxytoca Assessment and Plan Problems: (1) Paraplegia Status: Chronic Assessment & Plan: He is not demonstrating regression as per OT/PT. His exam is relatively unchanged. Dr. Avalos recommended a plain film to establish a baseline film since surgery, but didn't feel that an MRI was indicated and that the patient should continue working with therapy. He is planning to discharge to [facility] for ongoing rehab. (2) UTI (urinary tract infection) Status: Acute Assessment & Plan: He was noted to have nitrates and leukocytes in his urine. His culture was positive for Klebsiella. He is on treatment with oral levofloxacin. (3) Decubitus ulcer Status: Acute Assessment & Plan: He is being followed by the wound care team. (4) Hypertension Status: Acute Assessment & Plan: He has been started on treatment with Norvasc. Exam Sepsis Risk: No Definite Risk Problem Qualifiers (1) UTI (urinary tract infection): Urinary tract infection type: site unspecified Hematuria presence: with hematuria Qualified Codes: N39.0 - Urinary tract infection, site not specified ; R31.9 - Hematuria, unspecified (2) Decubitus ulcer: Pressure ulcer location: buttock Pressure ulcer stage: stage 3 Laterality: right Qualified Codes: L89.313 - Pressure ulcer of right buttock, stage 3 (3) Hypertension: Hypertension type: essential hypertension Qualified Codes: I10 - Essential ( primary) hypertension GRIFFIN EARLY DO Mar 15, 2018 10:49
[2018-03-15] MEDS: ACETAMINOPHEN 325 MG TAB PO PRN (11:41)
[2018-03-15 20:31] VITALS: BP 142/98
[2018-03-15] MEDS: ENOXAPARIN 40 MG/0.4ML SYR SC SCH (20:35)
[2018-03-15] MEDS: CYCLOBENZAPRINE HCL 10 MG TAB PO PRN (22:58)
[2018-03-16 02:30] VITALS: BP 134/80
[2018-03-16] MEDS ORDERED: ACET-2007 PO (08:37)
[2018-03-16] MEDS ORDERED: ENOX40DI8 SC (08:37)
[2018-03-16] MEDS ORDERED: PANT40TA65 PO (08:37)
[2018-03-16] MEDS ORDERED: AMLO2.5T74 PO (08:37)
[2018-03-16] MEDS ORDERED: CYCL10TA29 PO (08:37)
[2018-03-16] MEDS ORDERED: PREG50CA48 PO (08:37)
[2018-03-16] MEDS ORDERED: LEVO750T27 PO (08:37)
[2018-03-16] MEDS ORDERED: NIC10R INH (08:37)
--- NOTE | 2018-03-16 08:50 | Hospitalist Depart ---
Discharge Summary Reason for Hosp/Final Diag: (1) Paraplegia Status: Chronic Hospital Course & Plan: He did have previous cervical spine surgery in [place], [place] and had been admitted to rehab facility in [place], [place]. He had returned home , but was not able to manage effectively at home. He was evaluated by PT/OT and they did not feel he was demonstrating regression. His exam is relatively unchanged. Dr. Avalos recommended a plain film to establish a baseline film since surgery, but didn't feel that an MRI was indicated. He did feel that the patient should continue working with therapy. He is planning to discharge to [facility] in [place], [place] for ongoing rehab. (2) UTI (urinary tract infection) Status: Acute Hospital Course & Plan: He was noted to have nitrates and leukocytes in his urine. His culture was positive for Klebsiella. He is on treatment with oral levofloxacin. This will complete with the last dose on March 17. He will need re- check UA and culture approximately 5-7 days after completion. (3) Decubitus ulcer Status: Acute Hospital Course & Plan: He is being followed by the wound care team. (4) Hypertension Status: Acute Hospital Course & Plan: He has been started on treatment with Norvasc. Departure Weight (Pounds): 170 Result Diagram: 03/15/18 0548 03/15/18 0548 Item Value Date Time Urine Color Yellow 03/08/18 1517 Urine Clarity Turbid 03/08/18 1517 Urine pH 6.0 pH 03/08/18 1517 Urine Specific [place] 1.009 03/08/18 1517 Urine Protein 30 mg/dL 03/08/18 1517 Urine Glucose (UA) Negative mg/dL 03/08/18 1517 Urine Ketones Negative mg/dL 03/08/18 1517 Urine Blood Moderate 03/08/18 1517 Urine Nitrite Positive H 03/08/18 1517 Urine Bilirubin Negative 03/08/18 1517 Urine Urobilinogen Negative mg/dL 03/08/18 1517 Urine Leukocyte Esterase Large H 03/08/18 1517 Urine RBC 26 /HPF 03/08/18 1517 Urine WBC 1449 /HPF 03/08/18 1517 Urine WBC Clumps Many /HPF 03/08/18 1517 Urine Squamous Epithelial Cells None /LPF 03/08/18 1517 Urine Bacteria Many /HPF H 03/08/18 1517 Urine Mucus None /HPF 03/08/18 1517 White Blood Count 9.7 k/uL 03/08/18 1717 Hemoglobin 16.5 g/dL 03/08/18 1717 Hematocrit 47.1 % 03/08/18 1717 Platelet Count 224 K/uL 03/08/18 1717 Platelet Count 187 K/uL 03/09/18 0524 Hematocrit 42.2 % 03/09/18 0524 Hemoglobin 14.8 g/dL 03/09/18 0524 White Blood Count 8.2 k/uL 03/09/18 0524 Sodium Level 141 mmol/L 03/08/18 1717 Potassium Level 4.1 mmol/L 03/08/18 1717 Chloride Level 100 mmol/L 03/08/18 1717 Carbon Dioxide Level 26 mmol/L 03/08/18 1717 Blood Urea Nitrogen 12 mg/dl 03/08/18 1717 Creatinine 0.90 mg/dl 03/08/18 1717 Glomerular Filtration Rate Calc > 60.0 03/08/18 1717 Calcium Level 9.8 mg/dl 03/08/18 1717 Random Glucose 100 mg/dl 03/08/18 1717 Total Bilirubin 0.5 mg/dl 03/08/18 1717 Aspartate Amino Transf (AST/SGOT) 20 U/L 03/08/18 1717 Alanine Aminotransferase (ALT/SGPT) 32 U/L 03/08/18 1717 Alkaline Phosphatase 110 U/L 03/08/18 1717 Total Protein 8.0 gm/dl 03/08/18 1717 Albumin 4.1 g/dl 03/08/187 [facility] [address] [place] [address] CIARA AREVALO M.D., DIRECTOR OF LABORATORY SERVICES ESPERANZA KIRK M.D., PATHOLOGIST RUN DATE: 03/11/18 Specimen Inquiry Report PAGE 1 RUN TIME: 0839 PATIENT: MICHELLE ANGEL ACCT: [id number] LOC: [facility] U : [id number] AGE/SX: 47/M ROOM: 2275 REG : 03/08/[address]: NATALI MOROCHO MD : 1970 BED: 275 DIS : STATUS: ADM IN TLOC: SPEC #: [id number] JEANNE: 03/09/18-UNK STATUS: COMP REQ #: [id number] RECD: 03/09/[address]: NATALI MOROCHO MD SOURCE: [facility] ENTR: 03/09/[address]: SPDESC: ORDERED: CULT URINE COMMENTS: Has specimen been collected/obtained? Y Procedure Result Verified URINE CULTURE Final 03/11/18-0839 Organism 1 KLEBSIELLA OXYTOCA >100,000 COL/ML KLE OXYTOC M.I.C. RX --------- --- AMPICILLIN >=32 R AMPICILLIN/SULBACTAM 16 I CEFAZOLIN 8 S CEFTAZIDIME <=1 S CEFTRIAXONE <=1 S CEFEPIME <=1 S CEFOXITIN <=4 S ERTAPENEM <=0.5 S CIPROFLOXACIN <=0.25 S GENTAMICIN <=1 S IMIPENEM <=0.25 S LEVOFLOXACIN <=0.12 S NITROFURANTOIN <=16 S PIPERACILLIN/TAZOBACTAM <=4 S TOBRAMYCIN <=1 S TRIMETHOPRIM/SULFAMETHOXAZOLE <=20 S Imaging PATIENT NAME: Michelle Angel : 1970 MR: [id number] V: [id number] EXAM DATE: [id number] ORDERING PHYSICIAN: RICA PERAZA TECHNOLOGIST: Location: [facility] Patient: Michelle Angel : 1970 Visit/Account:[id number] Date of Sevice: 03/13/2018 Exam type: CERVICAL SPINE 2 OR 3 VIEW History: cervical stenosis Comparison: MR cervical spine November 30, 2017. Findings: Three views of the cervical spine reveal postsurgical changes from anterior fusion of C4, C5 and C6 with anterior plate and screws and intervertebral support cages. The vertebral bodies appear in good anatomic alignment. No hardware complication is identified. IMPRESSION: 1. Postsurgical changes from anterior fusion at C4, C5 and C6 with the vertebral bodies appearing in good anatomic alignment. Report Dictated By: Ene Johnson MD at 03/13/2018 3:51 PM Report E-Signed By: Ene Johnson MD at 03/13/2018 3:53 PM WSN:[email or web address] Condition: No Change Discharge: Rehab Facility PT/OT Follow Up For: PT Evaluation and Treat, OT Evaluation and Treat Follow-Up Labs: Other (Re-check UA and culture in 5-7 days) Treatments: Wound Care Time Spent: > 30 min Discharge Instructions Home Meds Active Scripts Pregabalin (LYRICA) 50 Mg Capsule, 50 MG PO BID for 30 Days, #60 CAPSULE 1 Refill Prov:DAVID BANUELOS MD 03/16/18 Pantoprazole Sodium (PANTOPRAZOLE SODIUM) 40 Mg Tablet.dr, 40 MG PO QDAY for 30 Days, #30 TAB 1 Refill Prov:DAVID BANUELOS MD 03/16/18 Nicotine (NICOTROL) 10 Mg/Inh Ctr, 10 MG INH PRN Y for nicotine need for 30 Days , #1 INHALER 1 Refill Prov:DAVID BANUELOS MD 03/16/18 Levofloxacin 750 Mg Tab (LEVOFLOXACIN 750 MG TAB) 750 Mg Tablet, 750 MG PO QDAY@ 10 for 1 Day, #1 TAB 0 Refills Prov:DAVID BANUELOS MD 03/16/18 Enoxaparin Sodium (LOVENOX) 40 Mg/0.4 Ml Disp.syrin, 40 MG SC HS for 30 Days, SYR 1 Refill Prov:DAVID BANUELOS MD 03/16/18 Cyclobenzaprine Hcl (CYCLOBENZAPRINE HCL) 10 Mg Tablet, 10 MG PO Q8H Y for MUSCLE SPASMS for 30 Days, TAB 1 Refill Prov:DAVID BANUELOS MD 03/16/18 Amlodipine Besylate (AMLODIPINE BESYLATE) 2.5 Mg Tablet, 2.5 MG PO QDAY for 30 Days, TAB 1 Refill Prov:DAVID BANUELOS MD 03/16/18 Acetaminophen (MAPAP) 325 Mg Tablet, 650 MG PO Q6H Y for FEVER/PAIN for 30 Days , TAB 1 Refill Prov:DAVID BANUELOS MD 03/16/18 Diet: Regular Activity: As Tolerated (as per PT/OT) Venous Thromboembolism Antithrombotics Is Pt On Any Antithrombotics?: Yes Problem Qualifiers (1) UTI (urinary tract infection): Urinary tract infection type: site unspecified Hematuria presence: with hematuria Qualified Codes: N39.0 - Urinary tract infection, site not specified ; R31.9 - Hematuria, unspecified (2) Decubitus ulcer: Pressure ulcer location: buttock Pressure ulcer stage: stage 3 Laterality: right Qualified Codes: L89.313 - Pressure ulcer of right buttock, stage 3 (3) Hypertension: Hypertension type: essential hypertension Qualified Codes: I10 - Essential ( primary) hypertension DAVID BANUELOS MD Mar 16, 2018 08:50
[2018-03-16 09:25] VITALS: BP 123/76
[2018-03-16] MEDS: CYCLOBENZAPRINE HCL 10 MG TAB PO PRN (09:27)
[2018-03-16] MEDS: LEVOFLOXACIN 750 MG TAB PO SCH (09:27)
[2018-03-16] MEDS: amLODIPine BESYL(*) 2.5 MG TAB PO SCH (09:27)
[2018-03-16] MEDS: PREGABALIN 50 MG CAP PO SCH (09:27)
[2018-03-16] MEDS: PANTOPRAZOLE SOD 40 MG TABEC PO SCH (09:27)
== END 2018-03-16 09:45 | DRG 689 ==
LOC: ER 16:49 → MED 18:21
PROVIDERS: ADMIT Specialist; ATTEND Specialist
PROC: 0JD93ZZ Extraction of Buttock Subcutaneous Tissue and Fascia, Percutaneous Approach (ICD-10-PCS; principal; 2018-03-08)
PROC: 0JD93ZZ Extraction of Buttock Subcutaneous Tissue and Fascia, Percutaneous Approach (ICD-10-PCS; 2018-03-08)
DX: N39.0 Urinary tract infection, site not specified (principal); L89.313 Pressure ulcer of right buttock, stage 3; G82.20 Paraplegia, unspecified; G89.29 Other chronic pain; M48.02 Spinal stenosis, cervical region; I10 Essential (primary) hypertension; B96.1 Klebsiella pneumoniae [K. pneumoniae] as the cause of diseases classified elsewhere; R31.9 Hematuria, unspecified; F17.210 Nicotine dependence, cigarettes, uncomplicated; G62.9 Polyneuropathy, unspecified; Z87.828 Personal history of other (healed) physical injury and trauma
CPT/HCPCS: 36415; 72040; 81001; 82040; 82247; 82310; 82374; 82435; 82565; 82947; 84075; 84132; 84155; 84295; 84450; 84460; 84520; 85025; 85027; 87077; 87088; 87186; 97161; 97162; 97166; 99285; C9113; J0696; J1650; J1956; J2360; J7030; J7050

== ENCOUNTER → 2018-03-16 | Outpatient (CLI) | payer MEDICAID ==
[2017-12-01 09:10] VITALS: BMI 30.1
[~2018-03-16] MED LIST changes: +ACET-2007 PO; +AMLO2.5T74 PO; +CYCL10TA29 PO; +ENOX40DI8 SC; +LEVO750T27 PO; +NIC10R INH; +PANT40TA65 PO; +PREG50CA48 PO
== END ==
LOC: AMB 09:14
PROVIDERS: ATTEND Nurse Practitioner
DX: L89.90 Pressure ulcer of unspecified site, unspecified stage (principal); G82.20 Paraplegia, unspecified
CPT/HCPCS: A0425; A0428

== ENCOUNTER 2018-05-27 08:27 | Emergency (ER) | payer MEDICAID ==
[2017-12-01 09:10] VITALS: Wt 76.2 kg
[~2018-05-27 08:27] MED LIST changes: -SULF-198 PO
--- NOTE | 2018-05-27 08:43 | ER Report ---
History and Physical Time Seen By MD: 08:42 Hx. of Stated Complaint: PATIENT REPORTS THAT HE CAUGHT HIS URINARY CATHETER ON HIS WHEELCHAIR WHEN ATTEMPTING TO TAKE A SHOWER. THERE IS NO EVIDENCE OF TRAUMA TO URETHRA AND NO EVIDENCE OF BLOOD IN URINE HPI/ROS CHIEF COMPLAINT: Urinary frequency and burning with urination HISTORY OF PRESENT ILLNESS: 47[facility] couple days ago unfortunate prior to that he's had increased frequency and pain with urination's was seen at outside facility told UTI but the neck and his prescription filled back in complaining of urinary complaints patient denies any hematuria since the Frost was never dislodge and otherwise unremarkable REVIEW OF SYSTEMS: Respiratory: No cough, no dyspnea. Cardiovascular: No chest pain, no palpitations. Gastrointestinal: No vomiting, no abdominal pain. Musculoskeletal: No back pain. Remainder of the 14 system rev: Yes Allergies: Coded Allergies: No Known Drug Allergies (Unverified , 03/08/18) Home Meds Active Scripts Pregabalin (LYRICA) 50 Mg Capsule, 50 MG PO BID for 30 Days, #60 CAPSULE 1 Refill Prov:DAVID BANUELOS MD 03/16/18 Pantoprazole Sodium (PANTOPRAZOLE SODIUM) 40 Mg Tablet.dr, 40 MG PO QDAY for 30 Days, #30 TAB 1 Refill Prov:DAVID BANUELOS MD 03/16/18 Nicotine (NICOTROL) 10 Mg/Inh Ctr, 10 MG INH PRN Y for nicotine need for 30 Days , #1 INHALER 1 Refill Prov:DAVID BANUELOS MD 03/16/18 Levofloxacin 750 Mg Tab (LEVOFLOXACIN 750 MG TAB) 750 Mg Tablet, 750 MG PO QDAY@ 10 for 1 Day, #1 TAB 0 Refills Prov:DAVID BANUELOS MD 03/16/18 Enoxaparin Sodium (LOVENOX) 40 Mg/0.4 Ml Disp.syrin, 40 MG SC HS for 30 Days, SYR 1 Refill Prov:DAVID BANUELOS MD 03/16/18 Cyclobenzaprine Hcl (CYCLOBENZAPRINE HCL) 10 Mg Tablet, 10 MG PO Q8H Y for MUSCLE SPASMS for 30 Days, TAB 1 Refill Prov:DAVID BANUELOS MD 03/16/18 Amlodipine Besylate (AMLODIPINE BESYLATE) 2.5 Mg Tablet, 2.5 MG PO QDAY for 30 Days, TAB 1 Refill Prov:DAVID BANUELOS MD 03/16/18 Acetaminophen (MAPAP) 325 Mg Tablet, 650 MG PO Q6H Y for FEVER/PAIN for 30 Days , TAB 1 Refill Prov:DAVID BANUELOS MD 03/16/18 Hx Smoking: Yes (1 PACK EVERY 2 DAYS) Smoking Status: Current: Every Day Smoker Hx Substance Use Disorder: No (marijuana) Hx Alcohol Use: Yes (OCCASIONALLY) Constitutional Vital Sign - Last 24 Hours 05/27/18 08:33 Temp 97.9 Pulse 78 Resp 20 B/P (MAP) 151/87 Pulse Ox 90 O2 Delivery Room Air Physical Exam General appearance: Alert no distress. Respiratory: Chest is non tender, lungs are clear to auscultation. Cardiac: Regular rate and rhythm [ ] examination patient is a Frost catheter placed without any signs of trauma no blood in the urinary Frost bag otherwise unremarkable exam abdominal pain with palpation DIFFERENTIAL DIAGNOSIS: After history and physical exam differential diagnosis was considered for UTI Medical Decision Making Data Points Laboratory Hematology Test 05/27/18 08:46 Urine Color Yellow Urine Clarity Cloudy Urine pH 7.0 pH (4.8-9.5) Urine Specific [place] 1.014 Urine Protein 30 mg/dL (NEGATIVE) Urine Glucose (UA) Negative mg/dL (NEGATIVE) Urine Ketones Negative mg/dL (NEGATIVE) Urine Blood Small (NEGATIVE) Urine Nitrite Negative (NEGATIVE) Urine Bilirubin Negative (NEGATIVE) Urine Urobilinogen Negative mg/dL (0.2-1.9) Urine Leukocyte Esterase Large (NEGATIVE) Urine RBC 36 /HPF (0-2/HPF) Urine WBC 205 /HPF (0-5/HPF) Urine Squamous Epithelial Cells Few /LPF (NONE-FEW) Urine Calcium Oxalate Crystals Few /HPF (NONE) Urine Bacteria Few /HPF (NONE-FEW) Urine Mucus None /HPF (NONE-FEW) Urine Yeast Few /HPF (NONE) Urine Yeast (Budding) Many /HPF Chemistry Test 05/27/18 08:46 Urine Color Yellow Urine Clarity Cloudy Urine pH 7.0 pH (4.8-9.5) Urine Specific [place] 1.014 Urine Protein 30 mg/dL (NEGATIVE) Urine Glucose (UA) Negative mg/dL (NEGATIVE) Urine Ketones Negative mg/dL (NEGATIVE) Urine Blood Small (NEGATIVE) Urine Nitrite Negative (NEGATIVE) Urine Bilirubin Negative (NEGATIVE) Urine Urobilinogen Negative mg/dL (0.2-1.9) Urine Leukocyte Esterase Large (NEGATIVE) Urine RBC 36 /HPF (0-2/HPF) Urine WBC 205 /HPF (0-5/HPF) Urine Squamous Epithelial Cells Few /LPF (NONE-FEW) Urine Calcium Oxalate Crystals Few /HPF (NONE) Urine Bacteria Few /HPF (NONE-FEW) Urine Mucus None /HPF (NONE-FEW) Urine Yeast Few /HPF (NONE) Urine Yeast (Budding) Many /HPF Urinalysis Test 05/27/18 08:46 Urine Color Yellow Urine Clarity Cloudy Urine pH 7.0 pH (4.8-9.5) Urine Specific [place] 1.014 Urine Protein 30 mg/dL (NEGATIVE) Urine Glucose (UA) Negative mg/dL (NEGATIVE) Urine Ketones Negative mg/dL (NEGATIVE) Urine Blood Small (NEGATIVE) Urine Nitrite Negative (NEGATIVE) Urine Bilirubin Negative (NEGATIVE) Urine Urobilinogen Negative mg/dL (0.2-1.9) Urine Leukocyte Esterase Large (NEGATIVE) Urine RBC 36 /HPF (0-2/HPF) Urine WBC 205 /HPF (0-5/HPF) Urine Squamous Epithelial Cells Few /LPF (NONE-FEW) Urine Calcium Oxalate Crystals Few /HPF (NONE) Urine Bacteria Few /HPF (NONE-FEW) Urine Mucus None /HPF (NONE-FEW) Urine Yeast Few /HPF (NONE) Urine Yeast (Budding) Many /HPF ED Course/Re-evaluation ED Course ED clinical course medical decision making this 47-year-old male with a UTI has a Frost catheter placed we'll start him on antibiotics and follow-up with primary care Decision to Disposition Date: May 27, 2018 Decision to Disposition Time: 09:19 Depart Departure Latest Vital Signs Vital Signs Date Time Temp Pulse Resp B/P (MAP) Pulse Ox O2 Delivery O2 Flow Rate FiO2 05/27/18 08:33 97.9 78 20 151/87 90 Room Air Impression: Primary Impression: UTI (urinary tract infection) Condition: Improved Disposition: HOME OR SELF-CARE Referrals: DAJA JACKSON MD 5 Days New Scripts Sulfamethoxazole/Trimet 800-160 Mg Tab (BACTRIM DS TABLET) 1 Each Tablet 1 TAB PO Q12H, #14 MG 0 Refills TAKE ONE TABLET BY MOUTH EVERY TWELVE HOURS Prov: ISAMAR RIBERA MD 05/27/18 Patient Instructions: Urinary Tract Infection in Men (DC) ISAMAR RIBERA MD May 27, 2018 08:43
[2018-05-27] MEDS ORDERED: SULF-198 PO (09:20)
[2018-05-27 10:30] VITALS: BP 125/80
[2018-05-28] MEDS ORDERED: SULF-198 PO (06:23)
== END 2018-05-27 11:01 | disposition home or self-care (01) ==
LOC: ER 08:36
DX: N39.0 Urinary tract infection, site not specified (principal)
CPT/HCPCS: 81001; 87088; 99282

== ENCOUNTER → 2018-05-27 | Outpatient (CLI) | payer MEDICAID ==
[2017-12-01 09:10] VITALS: BMI 30.1
[~2018-05-27] MED LIST changes: +SULF-198 PO
== END ==
LOC: AMB 11:17
PROVIDERS: ATTEND Nurse Practitioner
DX: R53.1 Weakness (principal)
CPT/HCPCS: A0425; A0428

== ENCOUNTER → 2018-05-27 | Outpatient (CLI) | payer MEDICAID ==
[2017-12-01 09:10] VITALS: BMI 30.1
== END ==
LOC: AMB 08:04
PROVIDERS: ATTEND Nurse Practitioner
DX: N36.8 Other specified disorders of urethra (principal)
CPT/HCPCS: A0425; A0429

== ENCOUNTER 2018-05-28 03:23 | Emergency (ER) | payer MEDICAID ==
[2017-12-01 09:10] VITALS: Wt 76.2 kg
--- NOTE | 2018-05-28 03:26 | ER Report ---
History and Physical Time Seen By MD: 03:26 HPI/ROS CHIEF COMPLAINT: Genitourinary pain HISTORY OF PRESENT ILLNESS:Patient is a 47-year-old male here with complaints of severe genitourinary pain. Patient reportedly was seen here yesterday and was given a urinary catheter due to urinary retention. He developed severe pain after discharge and was unable to fill his antibiotic prescription. Pain worsened and patient returned to the emergency department for further intervention. REVIEW OF SYSTEMS: Constitutional: No fever, no chills. Eyes: No discharge. ENT: No sore throat. Cardiovascular: No chest pain, no palpitations. Respiratory: No cough, no shortness of breath. Gastrointestinal: No abdominal pain, no vomiting. Genitourinary: + severe pain, uribe in place Musculoskeletal: No back pain. Skin: No rashes. Neurological: No headache. Allergies: Coded Allergies: No Known Drug Allergies (Unverified , 03/08/18) Home Meds Active Scripts Sulfamethoxazole/Trimet 800-160 Mg Tab (BACTRIM DS TABLET) 1 Each Tablet, 1 TAB PO Q12H for 7 Days, #14 TAB Prov:LUPE JARA DO 05/28/18 Pregabalin (LYRICA) 50 Mg Capsule, 50 MG PO BID for 30 Days, #60 CAPSULE 1 Refill Prov:DAVID BANUELOS MD 03/16/18 Pantoprazole Sodium (PANTOPRAZOLE SODIUM) 40 Mg Tablet.dr, 40 MG PO QDAY for 30 Days, #30 TAB 1 Refill Prov:DAVID BANUELOS MD 03/16/18 Nicotine (NICOTROL) 10 Mg/Inh Ctr, 10 MG INH PRN Y for nicotine need for 30 Days , #1 INHALER 1 Refill Prov:DAVID BANUELOS MD 03/16/18 Enoxaparin Sodium (LOVENOX) 40 Mg/0.4 Ml Disp.syrin, 40 MG SC HS for 30 Days, SYR 1 Refill Prov:DAVID BANUELOS MD 03/16/18 Cyclobenzaprine Hcl (CYCLOBENZAPRINE HCL) 10 Mg Tablet, 10 MG PO Q8H Y for MUSCLE SPASMS for 30 Days, TAB 1 Refill Prov:DAVID BANUELOS MD 03/16/18 Amlodipine Besylate (AMLODIPINE BESYLATE) 2.5 Mg Tablet, 2.5 MG PO QDAY for 30 Days, TAB 1 Refill Prov:DAVID BANUELOS MD 03/16/18 Acetaminophen (MAPAP) 325 Mg Tablet, 650 MG PO Q6H Y for FEVER/PAIN for 30 Days , TAB 1 Refill Prov:DAVID BANUELOS MD 03/16/18 Discontinued Scripts Sulfamethoxazole/Trimet 800-160 Mg Tab (BACTRIM DS TABLET) 1 Each Tablet, 1 TAB PO Q12H, #14 MG 0 Refills TAKE ONE TABLET BY MOUTH EVERY TWELVE HOURS Prov:ISAMAR RIBERA MD 05/27/18 Levofloxacin 750 Mg Tab (LEVOFLOXACIN 750 MG TAB) 750 Mg Tablet, 750 MG PO QDAY@ 10 for 1 Day, #1 TAB 0 Refills Prov:DAVID BANUELOS MD 03/16/18 Hx Smoking: Yes (1 PACK EVERY 2 DAYS) Smoking Status: Current: Every Day Smoker Hx Substance Use Disorder: No (marijuana) Hx Alcohol Use: Yes (OCCASIONALLY) Constitutional Vital Sign - Last 24 Hours 05/28/18 05/28/18 05/28/18 05/28/18 03:23 03:26 03:31 03:38 Temp 98.7 Pulse 81 109 ??? Resp 20 22 B/P (MAP) 202/112 166/95 (118) Pulse Ox 96 96 96 O2 Delivery Room Air 05/28/18 05/28/18 05/28/18 05/28/18 03:53 04:08 04:23 04:30 Pulse 113 113 109 Resp 9 7 9 B/P (MAP) 112/69 (83) Pulse Ox 94 93 95 05/28/18 05/28/18 05/28/18 05/28/18 04:53 04:58 05:03 05:18 Pulse 104 101 102 ??? Resp 18 16 Pulse Ox 90 92 05/28/18 05/28/18 05/28/18 05/28/18 05:33 05:48 06:00 06:03 Pulse ??? 100 95 Resp 51 13 16 B/P (MAP) 134/81 (98) Pulse Ox 92 99 05/28/18 05/28/18 05/28/18 05/28/18 06:18 06:30 06:35 06:50 Pulse 75 86 ??? Resp 16 17 B/P (MAP) 123/71 (88) Pulse Ox 100 100 05/28/18 05/28/18 07:00 07:05 Pulse ??? B/P (MAP) ???/??? (3267) Physical Exam General Appearance: The patient is alert, has no immediate need for airway protection and no signs of toxicity. + severe distress due to pain Eyes: Pupils equal and round no pallor or injection. ENT, Mouth: Mucous membranes are moist. Respiratory: There are no retractions, lungs are clear to auscultation. Cardiovascular: Regular rate and rhythm. Gastrointestinal: Abdomen is soft and non tender, no masses, bowel sounds normal. Neurological: No focal deficits Skin: Warm and dry, no rashes. Musculoskeletal: Neck is supple non tender. Extremities are nontender, nonswollen and have full range of motion. : + uribe in place draining DIFFERENTIAL DIAGNOSIS: After history and physical exam differential diagnosis was considered for obstruction, infection, pyelonephritis, intra-abdominal infection. Medical Decision Making Data Points Result Diagram: 05/28/18 0408 05/28/18 0408 Laboratory Hematology Test 05/28/18 04:08 05/28/18 04:45 Red Blood Count 4.86 M/uL (4.00-5.60) Mean Corpuscular Volume 89.5 fL (80.0-96.0) Mean Corpuscular Hemoglobin 31.8 pg (26.0-33.0) Mean Corpuscular Hemoglobin Concent 35.5 g/dL (32.0-36.0) Red Cell Distribution Width 13.9 % (11.5-14.5) Mean Platelet Volume 9.4 fL (7.2-11.1) Neutrophils (%) (Auto) 64.8 % (39.4-72.5) Lymphocytes (%) (Auto) 24.1 % (17.6-49.6) Monocytes (%) (Auto) 7.0 % (4.1-12.4) Eosinophils (%) (Auto) 3.5 % (0.4-6.7) Basophils (%) (Auto) 0.6 % (0.3-1.4) Nucleated RBC Relative Count (auto) 0.0 /100WBC Neutrophils # (Auto) 6.0 K/uL (2.0-7.4) Lymphocytes # (Auto) 2.2 K/uL (1.3-3.6) Monocytes # (Auto) 0.7 K/uL (0.3-1.0) Eosinophils # (Auto) 0.3 K/uL (0.0-0.5) Basophils # (Auto) 0.1 K/uL (0.0-0.1) Nucleated RBC Absolute Count (auto) 0.00 K/uL Sodium Level 143 mmol/L (137-145) Potassium Level 3.7 mmol/L (3.5-5.0) Chloride Level 107 mmol/L (98-107) Carbon Dioxide Level 23 mmol/L (22-30) Blood Urea Nitrogen 14 mg/dl (9-21) Creatinine 0.80 mg/dl (0.66-1.25) Glomerular Filtration Rate Calc > 60.0 Random Glucose 160 mg/dl (75-110) Lactate 4.5 mmol/L (0.7-2.1) Calcium Level 9.4 mg/dl (8.4-10.2) Total Bilirubin 0.7 mg/dl (0.2-1.3) Aspartate Amino Transf (AST/SGOT) 21 U/L (0-35) Alanine Aminotransferase (ALT/SGPT) 25 U/L (0-56) Alkaline Phosphatase 81 U/L (0-126) Total Protein 6.3 g/dl (6.3-8.2) Albumin 3.8 g/dl (3.5-5.0) Lipase 72 U/L (23-300) Urine Color Yellow Urine Clarity Cloudy Urine pH 6.0 pH (4.8-9.5) Urine Specific [place] 1.017 Urine Protein 100 mg/dL (NEGATIVE) Urine Glucose (UA) Negative mg/dL (NEGATIVE) Urine Ketones Negative mg/dL (NEGATIVE) Urine Blood Small (NEGATIVE) Urine Nitrite Negative (NEGATIVE) Urine Bilirubin Negative (NEGATIVE) Urine Urobilinogen Negative mg/dL (0.2-1.9) Urine Leukocyte Esterase Large (NEGATIVE) Urine RBC 15 /HPF (0-2/HPF) Urine WBC 160 /HPF (0-5/HPF) Urine Squamous Epithelial Cells None /LPF (NONE-FEW) Urine Transitional Epithelial Cells Few /LPF (NONE-FEW) Urine Calcium Oxalate Crystals Few /HPF (NONE) Urine Bacteria Negative /HPF (NONE-FEW) Urine Mucus Few /HPF (NONE-FEW) Chemistry Test 05/28/18 04:08 05/28/18 04:45 White Blood Count 9.3 k/uL (4.5-11.0) Red Blood Count 4.86 M/uL (4.00-5.60) Hemoglobin 15.4 g/dL (14.0-18.0) Hematocrit 43.5 % (42.0-52.0) Mean Corpuscular Volume 89.5 fL (80.0-96.0) Mean Corpuscular Hemoglobin 31.8 pg (26.0-33.0) Mean Corpuscular Hemoglobin Concent 35.5 g/dL (32.0-36.0) Red Cell Distribution Width 13.9 % (11.5-14.5) Platelet Count 154 K/uL (150-450) Mean Platelet Volume 9.4 fL (7.2-11.1) Neutrophils (%) (Auto) 64.8 % (39.4-72.5) Lymphocytes (%) (Auto) 24.1 % (17.6-49.6) Monocytes (%) (Auto) 7.0 % (4.1-12.4) Eosinophils (%) (Auto) 3.5 % (0.4-6.7) Basophils (%) (Auto) 0.6 % (0.3-1.4) Nucleated RBC Relative Count (auto) 0.0 /100WBC Neutrophils # (Auto) 6.0 K/uL (2.0-7.4) Lymphocytes # (Auto) 2.2 K/uL (1.3-3.6) Monocytes # (Auto) 0.7 K/uL (0.3-1.0) Eosinophils # (Auto) 0.3 K/uL (0.0-0.5) Basophils # (Auto) 0.1 K/uL (0.0-0.1) Nucleated RBC Absolute Count (auto) 0.00 K/uL Glomerular Filtration Rate Calc > 60.0 Lactate 4.5 mmol/L (0.7-2.1) Calcium Level 9.4 mg/dl (8.4-10.2) Total Bilirubin 0.7 mg/dl (0.2-1.3) Aspartate Amino Transf (AST/SGOT) 21 U/L (0-35) Alanine Aminotransferase (ALT/SGPT) 25 U/L (0-56) Alkaline Phosphatase 81 U/L (0-126) Total Protein 6.3 g/dl (6.3-8.2) Albumin 3.8 g/dl (3.5-5.0) Lipase 72 U/L (23-300) Urine Color Yellow Urine Clarity Cloudy Urine pH 6.0 pH (4.8-9.5) Urine Specific [place] 1.017 Urine Protein 100 mg/dL (NEGATIVE) Urine Glucose (UA) Negative mg/dL (NEGATIVE) Urine Ketones Negative mg/dL (NEGATIVE) Urine Blood Small (NEGATIVE) Urine Nitrite Negative (NEGATIVE) Urine Bilirubin Negative (NEGATIVE) Urine Urobilinogen Negative mg/dL (0.2-1.9) Urine Leukocyte Esterase Large (NEGATIVE) Urine RBC 15 /HPF (0-2/HPF) Urine WBC 160 /HPF (0-5/HPF) Urine Squamous Epithelial Cells None /LPF (NONE-FEW) Urine Transitional Epithelial Cells Few /LPF (NONE-FEW) Urine Calcium Oxalate Crystals Few /HPF (NONE) Urine Bacteria Negative /HPF (NONE-FEW) Urine Mucus Few /HPF (NONE-FEW) Urinalysis Test 05/28/18 04:45 Urine Color Yellow Urine Clarity Cloudy Urine pH 6.0 pH (4.8-9.5) Urine Specific [place] 1.017 Urine Protein 100 mg/dL (NEGATIVE) Urine Glucose (UA) Negative mg/dL (NEGATIVE) Urine Ketones Negative mg/dL (NEGATIVE) Urine Blood Small (NEGATIVE) Urine Nitrite Negative (NEGATIVE) Urine Bilirubin Negative (NEGATIVE) Urine Urobilinogen Negative mg/dL (0.2-1.9) Urine Leukocyte Esterase Large (NEGATIVE) Urine RBC 15 /HPF (0-2/HPF) Urine WBC 160 /HPF (0-5/HPF) Urine Squamous Epithelial Cells None /LPF (NONE-FEW) Urine Transitional Epithelial Cells Few /LPF (NONE-FEW) Urine Calcium Oxalate Crystals Few /HPF (NONE) Urine Bacteria Negative /HPF (NONE-FEW) Urine Mucus Few /HPF (NONE-FEW) EKG/Imaging Imaging Location: [facility] Patient: Je Mcgarry : 1970 Visit/Account:[id number] Date of Sevice: 05/28/2018 ABDOMEN/PELVIS WITH CONTRAST HISTORY: Abdominal pain TECHNIQUE: Axial images were obtained through the abdomen and pelvis with intravenous contrast . One of the following dose optimization techniques was utilized in the performance of this exam: automated exposure control; adjustment of the mA and/or kv according to patient size; or use of iterative reconstruction technique. Specific details can be referenced in the facility's radiology CT exam operational policy. CONTRAST: 75 cc of Isovue-370 COMPARISON: CT abdomen/pelvis 12/21/2017 FINDINGS: Visualized lung bases: Negative. Hepatobiliary: Probable gallstones. No biliary ductal dilatation. Spleen: Negative. Adrenals: Negative. Pancreas: Negative. Kidneys/ureters/bladder: Mild diffuse thickening of the urinary bladder wall with mild calcification within the anterior wall and mild stranding of the adjacent fat. No radiopaque renal or ureteral calculus. No hydronephrosis. Bowel/peritoneum/mesentery: Normal appendix. Large amount of colonic stool without acute inflammatory change. No bowel obstruction, free air or ascites. Vessels: Negative. Lymph nodes: Mildly enlarged retroperitoneal and pelvic lymph nodes. A left retroperitoneal lymph node measures 1.3 x 1.2 cm (image 62). A right external iliac lymph node measures 1.5 x 1.0 cm (image 135). Pelvic genitourinary: Negative. Bones/body wall: Negative. Other findings: None significant IMPRESSION: 1. Diffuse thickening of the urinary bladder wall with mild adjacent soft tissue stranding. There is mild calcification within the bladder wall anteriorly. Findings could be secondary to chronic outlet obstruction or cystitis. Bladder neoplasm not entirely excluded. No hydronephrosis. 2. Mild retroperitoneal pelvic lymphadenopathy could be reactive but is nonspecific. 3. Moderate diffuse colonic stool without obstruction. 4. Probable gallstones without biliary ductal dilatation. ED Course/Re-evaluation ED Course Patient is a 47-year-old male here with complaints of genitourinary pain with a Uribe in place and a diagnosis of urinary tract infection which was diagnosed the day before. Patient was unable to fill antibiotic prescription and he reports having worsening pain. Uribe catheter was removed. Patient was given ceftriaxone for a myocardial coverage and a prescription for Bactrim. LABS were remarkable for a lactate of 4.5. Patient received Zofran and fluids and had significant improvement after removal of Uribe catheter. I updated the patient regarding lab findings and workup results and he voiced understanding. Patient was stable at time of discharge. Decision to Disposition Date: May 28, 2018 Decision to Disposition Time: 06:26 Depart Departure Latest Vital Signs Vital Signs Date Time Temp Pulse Resp B/P (MAP) Pulse Ox O2 Delivery O2 Flow Rate FiO2 05/28/18 07:05 ??? 05/28/18 07:00 ???/??? (1665) 05/28/18 06:35 17 100 05/28/18 03:26 98.7 Room Air Impression: Primary Impression: UTI (urinary tract infection) Condition: Improved Disposition: HOME OR SELF-CARE New Scripts Sulfamethoxazole/Trimet 800-160 Mg Tab (BACTRIM DS TABLET) 1 Each Tablet 1 TAB PO Q12H for 7 Days, #14 TAB Prov: LUPE JARA DO 05/28/18 Patient Instructions: Trimethoprim (By mouth), Urinary Tract Infection in Men ( ED) Additional Instructions: Please take one tablet of Bactrim every 12 hours for 7 days. Please return promptly if you develop any urinary retention, fevers, worsening abdominal pain. Please follow-up with your family doctor next week. LUPE JARA DO May 28, 2018 03:26
[2018-05-28] MEDS ORDERED: ONDANSETRON 4 MG/2 ML VIAL IVP ONE (03:50)
[2018-05-28] MEDS ORDERED: fentaNYL CITR 100 MCG/2 ML AMP IVP ONE (03:50)
[2018-05-28] MEDS ORDERED: cefTRIAXone 1 GM VIAL IVP ONE (03:50)
[2018-05-28] MEDS ORDERED: IOPAMIDOL 76% 100 ML INFUS BTL 100 ML ONE (04:06)
[2018-05-28 04:17] LABS: PLATELET COUNT, AUTOMATED 154 K/uL (150-450)
--- NOTE | 2018-05-28 06:00 | RADIOLOGY IMAGING REPORT ---
FACILITY: [facility] PATIENT NAME: Je Mcgarry : 1970 MR: [id number] V: [id number] EXAM DATE: ORDERING PHYSICIAN: LUPE JARA TECHNOLOGIST: [place] [facility] [place] Je Mcgarry : 1970 Visit/Account:[id number] Date of Sevice: 05/28/2018 ABDOMEN/PELVIS WITH CONTRAST HISTORY: Abdominal pain TECHNIQUE: Axial images were obtained through the abdomen and pelvis with intravenous contrast . One of the following dose optimization techniques was utilized in the performance of this exam: automate d exposure control; adjustment of the mA and/or kv according to patient size; or use of iterative rec onstruction technique. Specific details can be referenced in the facility's radiology CT exam operati onal policy. CONTRAST: 75 cc of Isovue-370 COMPARISON: CT abdomen/pelvis 12/21/2017 FINDINGS: Visualized lung bases: Negative. Hepatobiliary: Probable gallstones. No biliary ductal dilatation. Spleen: Negative. Adrenals: Negative. Pancreas: Negative. Kidneys/ureters/bladder: Mild diffuse thickening of the urinary bladder wall with mild calcification within the anterior wall and mild stranding of the adjacent fat. No radiopaque renal or ureteral greg culus. No hydronephrosis. Bowel/peritoneum/mesentery: Normal appendix. Large amount of colonic stool without acute inflammator y change. No bowel obstruction, free air or ascites. Vessels: Negative. Lymph nodes: Mildly enlarged retroperitoneal and pelvic lymph nodes. A left retroperitoneal lymph nod e measures 1.3 x 1.2 cm (image 62). A right external iliac lymph node measures 1.5 x 1.0 cm (image 13 5). Pelvic genitourinary: Negative. Bones/body wall: Negative. Other findings: None significant IMPRESSION: 1. Diffuse thickening of the urinary bladder wall with mild adjacent soft tissue stranding. There is mild calcification within the bladder wall anteriorly. Findings could be secondary to chronic outlet obstruction or cystitis. Bladder neoplasm not entirely excluded. No hydronephrosis. 2. Mild retroperitoneal pelvic lymphadenopathy could be reactive but is nonspecific. 3. Moderate diffuse colonic stool without obstruction. 4. Probable gallstones without biliary ductal dilatation. Report Dictated By: Kelechi Goldstein MD at 05/28/2018 5:46 AM Report E-Signed By: Kelechi Goldstein MD at 05/28/2018 5:56 AM WSN:[id number]
[2018-05-28] MEDS ORDERED: NS(*) 0.9% 1000 ML BAG 1,000 ML IV ONE (06:05)
[2018-05-28] MEDS ORDERED: SULF-198 PO (06:23)
== END 2018-05-28 07:00 | disposition home or self-care (01) ==
LOC: ER 03:29
DX: N39.0 Urinary tract infection, site not specified (principal)
CPT/HCPCS: 74177; 81001; 83605; 83690; 85025; 87088; 96361; 96374; 96375; 99284; J0696; J2405; J3010; J7030; Q9967; 82040; 82247; 82310; 82374; 82435; 82565; 82947; 84075; 84132; 84155; 84295; 84450; 84460; 84520

== ENCOUNTER → 2018-05-28 | Outpatient (CLI) | payer MEDICAID ==
[2017-12-01 09:10] VITALS: BMI 30.1
[~2018-05-28] MED LIST changes: +SULF-198 PO
== END ==
LOC: AMB 02:59
PROVIDERS: ATTEND Nurse Practitioner
DX: R10.84 Generalized abdominal pain (principal)
CPT/HCPCS: A0425; A0427

== ENCOUNTER → 2018-05-28 | Outpatient (CLI) | payer MEDICAID ==
[2017-12-01 09:10] VITALS: BMI 30.1
== END ==
LOC: AMB 06:50
PROVIDERS: ATTEND Nurse Practitioner
DX: R53.1 Weakness (principal)
CPT/HCPCS: A0425; A0428

== ENCOUNTER 2018-06-30 13:57 | Inpatient (IN) | payer MEDICAID ==
[~2018-06-30] VITALS: Ht 175.3 cm; Wt 85.7 kg
[~2018-06-30 13:57] MED LIST changes: -ACET-2043 PO; -DULO30CA35 PO; -GABA-549 PO; -METF-411 PO; -NAPR-1043 PO; -NAPR500T31 PO; -NICO-306 BC; -PREG100C44 PO; -TRAM-420 PO
--- NOTE | 2018-06-30 14:08 | ER Report ---
History and Physical Time Seen By MD: 14:08 Hx. of Stated Complaint: bilateral le edema, numbness, and tingling as well as increased psychiatric concerns, is currently homeless and not able to take good care of himself HPI/ROS CHIEF COMPLAINT: Increased swelling to bilateral lower extremities, pain to left leg, generalized weakness HISTORY OF PRESENT ILLNESS: 47-year-old male patient presents to emergency room with complaint of increased swelling to bilateral lower extremities. Patient states that he has recently gotten out of a long-term care facility approximately one month ago. He states that he has been doing well until last few days. He states last few days he's noticed some swelling to the bilateral lower extremities, he's noticed some chills, as well as pain. Patient states he' s had muscle spasms in his legs which tend to be very painful. He states that he was taking Lyrica, however he stopped taking that secondary to suicidal ideation. Patient states that he is been eating and drinking fine, although he has had some loss of bowel or bladder control. Patient states he did have a fall approximately one week ago out of his wheelchair. States he did hit his face. He states that his been doing worse since getting out of the rehabilitation facility. Patient states that he is currently without a home. He states that he did sell his trailer when he had have neck surgery. He did move back in with people who purchases trailer, however they currently inoperable give him the care that he needs. REVIEW OF SYSTEMS: Respiratory: No cough, no dyspnea. Cardiovascular: No chest pain, no palpitations. Gastrointestinal: As noted above Musculoskeletal: As noted above Allergies: Coded Allergies: No Known Drug Allergies (Unverified , 06/30/18) Home Meds Active Scripts Amlodipine Besylate (AMLODIPINE BESYLATE) 2.5 Mg Tablet, 2.5 MG PO QDAY for 30 Days, TAB 1 Refill Prov:DAVID BANUELOS MD 03/16/18 Acetaminophen (MAPAP) 325 Mg Tablet, 650 MG PO Q6H Y for FEVER/PAIN for 30 Days , TAB 1 Refill Prov:DAVID BANULEOS MD 03/16/18 Reported Medications Metformin Hcl (METFORMIN HCL) 500 Mg Tablet, 1 TAB PO BID, TAB 06/30/18 Naproxen Sodium (ALEVE) 220 Mg Tablet, 500 MG PO BID, TAB 06/30/18 Pregabalin (LYRICA) 100 Mg Capsule, 100 MG PO BID, CAPSULE 06/30/18 Tramadol Hcl (TRAMADOL HCL) 50 Mg Tablet, 50-100 MG PO Q4-6H, TAB 06/30/18 Discontinued Scripts Sulfamethoxazole/Trimet 800-160 Mg Tab (BACTRIM DS TABLET) 1 Each Tablet, 1 TAB PO Q12H for 7 Days, #14 TAB Prov:LUPE JARA DO 05/28/18 Pregabalin (LYRICA) 50 Mg Capsule, 50 MG PO BID for 30 Days, #60 CAPSULE 1 Refill Prov:DAVID BANUELOS MD 03/16/18 Pantoprazole Sodium (PANTOPRAZOLE SODIUM) 40 Mg Tablet.dr, 40 MG PO QDAY for 30 Days, #30 TAB 1 Refill Prov:DAVID BANUELOS MD 03/16/18 Nicotine (NICOTROL) 10 Mg/Inh Ctr, 10 MG INH PRN Y for nicotine need for 30 Days , #1 INHALER 1 Refill Prov:DAVID BANUELOS MD 03/16/18 Enoxaparin Sodium (LOVENOX) 40 Mg/0.4 Ml Disp.syrin, 40 MG SC HS for 30 Days, SYR 1 Refill Prov:DAVID BANUELOS MD 03/16/18 Cyclobenzaprine Hcl (CYCLOBENZAPRINE HCL) 10 Mg Tablet, 10 MG PO Q8H Y for MUSCLE SPASMS for 30 Days, TAB 1 Refill Prov:DAVID BANUELOS MD 03/16/18 Past Medical/Surgical History Patient has a past medical history of migraines, bladder rupture, frequent UTI, 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 Patient has a surgical history of a skull fracture repair, cervical spine repair , tonsillectomy. Reviewed Nurses Notes: Yes Hx Smoking: Yes (1 PACK EVERY 2 DAYS) Smoking Status: Current: Every Day Smoker Hx Substance Use Disorder: No (marijuana) Hx Alcohol Use: Yes (OCCASIONALLY) Constitutional Vital Sign - Last 24 Hours 06/30/18 06/30/18 06/30/18 06/30/18 14:01 14:02 14:15 14:27 Temp 97.9 Pulse 94 90 Resp 18 B/P (MAP) 138/110 (119) 138/110 127/101 (110) Pulse Ox 95 96 06/30/18 06/30/18 06/30/18 06/30/18 14:30 14:45 14:57 15:00 Pulse 86 B/P (MAP) 121/82 (95) 139/109 (119) 127/79 (95) Pulse Ox 92 06/30/18 06/30/18 16:05 16:10 Pulse 75 61 Pulse Ox 94 89 Intake and Output 06/30/18 06/30/18 07/01/18 15:00 23:00 07:00 Intake Total 1000 ml Balance 1000 ml Physical Exam General Appearance: The patient is alert, has no immediate need for airway protection and no current signs of toxicity. Respiratory: Chest is non tender, lungs are clear to auscultation. Cardiac: regular rate and rhythm Gastrointestinal: Abdomen is soft and non tender, no masses, bowel sounds normal. Musculoskeletal: Neck: Neck is supple and non tender. Extremities have full range of motion and are non tender. Skin: No rashes or lesions. Neuro: Patient does have weak communication engineer strength bilaterally, patient had some weakness with flexion of the left arm, some weakness with plantar flexion. DIFFERENTIAL DIAGNOSIS: After history and physical exam differential diagnosis was considered for reinjury to the neck, infection, urinary tract infection, sepsis. Medical Decision Making Data Points Result Diagram: 06/30/18 1415 06/30/18 1415 Laboratory Hematology Test 06/30/18 14:15 06/30/18 14:50 Red Blood Count 5.12 M/uL (4.00-5.60) Mean Corpuscular Volume 92.1 fL (80.0-96.0) Mean Corpuscular Hemoglobin 32.5 pg (26.0-33.0) Mean Corpuscular Hemoglobin Concent 35.2 g/dL (32.0-36.0) Red Cell Distribution Width 13.5 % (11.5-14.5) Mean Platelet Volume 10.1 fL (7.2-11.1) Neutrophils (%) (Auto) 65.5 % (39.4-72.5) Lymphocytes (%) (Auto) 25.8 % (17.6-49.6) Monocytes (%) (Auto) 6.5 % (4.1-12.4) Eosinophils (%) (Auto) 1.8 % (0.4-6.7) Basophils (%) (Auto) 0.4 % (0.3-1.4) Nucleated RBC Relative Count (auto) 0.1 /100WBC Neutrophils # (Auto) 4.4 K/uL (2.0-7.4) Lymphocytes # (Auto) 1.7 K/uL (1.3-3.6) Monocytes # (Auto) 0.4 K/uL (0.3-1.0) Eosinophils # (Auto) 0.1 K/uL (0.0-0.5) Basophils # (Auto) 0.0 K/uL (0.0-0.1) Nucleated RBC Absolute Count (auto) 0.01 K/uL Sodium Level 142 mmol/L (137-145) Potassium Level 3.8 mmol/L (3.5-5.0) Chloride Level 104 mmol/L (98-107) Carbon Dioxide Level 27 mmol/L (22-30) Blood Urea Nitrogen 11 mg/dl (9-21) Creatinine 0.90 mg/dl (0.66-1.25) Glomerular Filtration Rate Calc > 60.0 Random Glucose 112 mg/dl (75-110) Lactate 2.4 mmol/L (0.7-2.1) Calcium Level 9.9 mg/dl (8.4-10.2) Total Bilirubin 1.7 mg/dl (0.2-1.3) Aspartate Amino Transf (AST/SGOT) 35 U/L (0-35) Alanine Aminotransferase (ALT/SGPT) 57 U/L (0-56) Alkaline Phosphatase 66 U/L (0-126) Troponin I < 0.012 ng/ml Total Protein 6.5 g/dl (6.3-8.2) Albumin 4.3 g/dl (3.5-5.0) Thyroid Stimulating Hormone (TSH) 1.02 uIU/ml (0.46-4.68) Serum Alcohol < 10 mg/dl Urine Color Lazara Urine Clarity Turbid Urine pH 6.0 pH (4.8-9.5) Urine Specific Mccracken 1.020 Urine Protein Negative mg/dL (NEGATIVE) Urine Glucose (UA) Negative mg/dL (NEGATIVE) Urine Ketones Negative mg/dL (NEGATIVE) Urine Blood Negative (NEGATIVE) Urine Nitrite Negative (NEGATIVE) Urine Bilirubin Negative (NEGATIVE) Urine Urobilinogen 4.0 mg/dL (0.2-1.9) Urine Leukocyte Esterase Moderate (NEGATIVE) Urine RBC 5 /HPF (0-2/HPF) Urine WBC 65 /HPF (0-5/HPF) Urine Squamous Epithelial Cells None /LPF (NONE-FEW) Urine Calcium Oxalate Crystals Few /HPF (NONE) Urine Bacteria Few /HPF (NONE-FEW) Urine Mucus Few /HPF (NONE-FEW) Urine Opiates Screen Negative Urine Barbiturates Screen Negative Ur Tricyclic Antidepressants Screen Negative Urine Phencyclidine Screen Negative Urine Amphetamines Screen Positive Urine Benzodiazepines Screen Negative Urine Cocaine Screen Negative Urine Cannabinoids Screen Positive Chemistry Test 06/30/18 14:15 06/30/18 14:50 White Blood Count 6.7 k/uL (4.5-11.0) Red Blood Count 5.12 M/uL (4.00-5.60) Hemoglobin 16.6 g/dL (14.0-18.0) Hematocrit 47.2 % (42.0-52.0) Mean Corpuscular Volume 92.1 fL (80.0-96.0) Mean Corpuscular Hemoglobin 32.5 pg (26.0-33.0) Mean Corpuscular Hemoglobin Concent 35.2 g/dL (32.0-36.0) Red Cell Distribution Width 13.5 % (11.5-14.5) Platelet Count 167 K/uL (150-450) Mean Platelet Volume 10.1 fL (7.2-11.1) Neutrophils (%) (Auto) 65.5 % (39.4-72.5) Lymphocytes (%) (Auto) 25.8 % (17.6-49.6) Monocytes (%) (Auto) 6.5 % (4.1-12.4) Eosinophils (%) (Auto) 1.8 % (0.4-6.7) Basophils (%) (Auto) 0.4 % (0.3-1.4) Nucleated RBC Relative Count (auto) 0.1 /100WBC Neutrophils # (Auto) 4.4 K/uL (2.0-7.4) Lymphocytes # (Auto) 1.7 K/uL (1.3-3.6) Monocytes # (Auto) 0.4 K/uL (0.3-1.0) Eosinophils # (Auto) 0.1 K/uL (0.0-0.5) Basophils # (Auto) 0.0 K/uL (0.0-0.1) Nucleated RBC Absolute Count (auto) 0.01 K/uL Glomerular Filtration Rate Calc > 60.0 Lactate 2.4 mmol/L (0.7-2.1) Calcium Level 9.9 mg/dl (8.4-10.2) Total Bilirubin 1.7 mg/dl (0.2-1.3) Aspartate Amino Transf (AST/SGOT) 35 U/L (0-35) Alanine Aminotransferase (ALT/SGPT) 57 U/L (0-56) Alkaline Phosphatase 66 U/L (0-126) Troponin I < 0.012 ng/ml Total Protein 6.5 g/dl (6.3-8.2) Albumin 4.3 g/dl (3.5-5.0) Thyroid Stimulating Hormone (TSH) 1.02 uIU/ml (0.46-4.68) Serum Alcohol < 10 mg/dl Urine Color Lazara Urine Clarity Turbid Urine pH 6.0 pH (4.8-9.5) Urine Specific Mccracken 1.020 Urine Protein Negative mg/dL (NEGATIVE) Urine Glucose (UA) Negative mg/dL (NEGATIVE) Urine Ketones Negative mg/dL (NEGATIVE) Urine Blood Negative (NEGATIVE) Urine Nitrite Negative (NEGATIVE) Urine Bilirubin Negative (NEGATIVE) Urine Urobilinogen 4.0 mg/dL (0.2-1.9) Urine Leukocyte Esterase Moderate (NEGATIVE) Urine RBC 5 /HPF (0-2/HPF) Urine WBC 65 /HPF (0-5/HPF) Urine Squamous Epithelial Cells None /LPF (NONE-FEW) Urine Calcium Oxalate Crystals Few /HPF (NONE) Urine Bacteria Few /HPF (NONE-FEW) Urine Mucus Few /HPF (NONE-FEW) Urine Opiates Screen Negative Urine Barbiturates Screen Negative Ur Tricyclic Antidepressants Screen Negative Urine Phencyclidine Screen Negative Urine Amphetamines Screen Positive Urine Benzodiazepines Screen Negative Urine Cocaine Screen Negative Urine Cannabinoids Screen Positive Toxicology Test 06/30/18 14:15 06/30/18 14:50 Serum Alcohol < 10 mg/dl Urine Opiates Screen Negative Urine Barbiturates Screen Negative Ur Tricyclic Antidepressants Screen Negative Urine Phencyclidine Screen Negative Urine Amphetamines Screen Positive Urine Benzodiazepines Screen Negative Urine Cocaine Screen Negative Urine Cannabinoids Screen Positive Urinalysis Test 06/30/18 14:50 Urine Color Lazara Urine Clarity Turbid Urine pH 6.0 pH (4.8-9.5) Urine Specific Mccracken 1.020 Urine Protein Negative mg/dL (NEGATIVE) Urine Glucose (UA) Negative mg/dL (NEGATIVE) Urine Ketones Negative mg/dL (NEGATIVE) Urine Blood Negative (NEGATIVE) Urine Nitrite Negative (NEGATIVE) Urine Bilirubin Negative (NEGATIVE) Urine Urobilinogen 4.0 mg/dL (0.2-1.9) Urine Leukocyte Esterase Moderate (NEGATIVE) Urine RBC 5 /HPF (0-2/HPF) Urine WBC 65 /HPF (0-5/HPF) Urine Squamous Epithelial Cells None /LPF (NONE-FEW) Urine Calcium Oxalate Crystals Few /HPF (NONE) Urine Bacteria Few /HPF (NONE-FEW) Urine Mucus Few /HPF (NONE-FEW) EKG/Imaging Imaging Bilateral lower extremity duplex venous ultrasound Indication: Bilateral leg swelling. Comparison: None Available Findings: Duplex Doppler and color flow imaging was performed. The bilateral common femoral, femoral, and popliteal veins are all patent and compressible with normal Doppler wave forms. There are normal responses to augmentation. The bilateral posterior tibial and peroneal veins are clear. The proximal greater saphenous veins are also normal. Both lower legs do show mild subcutaneous edema. Impression: 1. No evidence of deep venous thrombosis of the bilateral lower extremities. Report Dictated By: Vinnie Sin at 06/30/2018 4:17 PM Report E-Signed By: Vinnie Sin at 06/30/2018 4:19 PM ADDENDUM #1 There is slight reversal of the upper cervical lordosis which is likely related to the cervical fusion. Report Dictated By: Tu Perkins MD at 06/30/2018 3:57 PM Report E-Signed By: Tu Perkins MD at 06/30/2018 3:58 PM ORIGINAL REPORT EXAMINATION: CT cervical spine without IV contrast HISTORY: Weakness COMPARISON: None. TECHNIQUE: Axial images were obtained from the skull base through the upper thoracic spine without IV contrast administration. Coronal and sagittal reformatted images were obtained from the axial source data. One of the following dose optimization techniques was utilized in the performance of this exam: Automated exposure control; adjustment of the mA and/ or kV according to the patient's size; or use of an iterative reconstruction technique. Specific details can be referenced in the facility's radiology CT exam operational policy. FINDINGS: Alignment: Normal. Cranio-cervical junction: Negative. Vertebral bodies: Negative. Posterior elements: Negative. Hardware: C4-C6 anterior fusion hardware without visualized complication. Disc Spaces: Mild disc disease at C3-C4 and C6-C7. Soft tissues: Negative. Visualized upper chest: Small amount of debris within the trachea with small paratracheal diverticulum. IMPRESSION: 1. No acute fracture of the cervical spine. Report Dictated By: Tu Perkins MD at 06/30/2018 3:49 PM Report E-Signed By: Tu Perkins MD at 06/30/2018 3:53 PM CHEST SINGLE AP Indication: Wheezing.. Comparison: 12/21/2017. Findings: Cardiomediastinal silhouette and pulmonary vessels within normal limits. There is no focal infiltrate or lobar consolidation. No pneumothorax or pleural effusion. No nodule. Upper abdomen is unremarkable. No acute bony abnormality. Postsurgical changes in lower cervical spine without sequelae. IMPRESSION: 1. No acute cardiopulmonary process. Report Dictated By: Vinnie Sin at 06/30/2018 2:44 PM Report E-Signed By: Vinnie Sin at 06/30/2018 2:45 PM EXAMINATION: HEAD W/O CONTRAST CLINICAL INDICATION: weakness COMPARISON: CT dated May 05, 2017. TECHNIQUE: Contiguous axial CT images of the brain were obtained without IV contrast. Sagittal and coronal reformatted images were also performed. One of the following dose optimization techniques was utilized in the performance of this exam: Automated exposure control; adjustment of the mA and/ or kV according to the patient's size; or use of an iterative reconstruction technique. Specific details can be referenced in the facility's radiology CT exam operational policy. RESULT: BRAIN: The ventricles are symmetric and normal in size. The brain parenchyma appears normal. The cárdenas-white matter differentiation is preserved and the basilar cisterns are maintained. The cerebellum and brainstem appear normal. There is no mass, acute infarct, hemorrhage or shift of midline. Mild calcification within the cavernous carotid arteries. VISUALIZED PARANASAL SINUSES & MASTOIDS: Well aerated. SKULL BASE & CRANIUM: Visualized osseous structures are intact. IMPRESSION: No acute findings Report Dictated By: Tu Perkins MD at 06/30/2018 3:35 PM Report E-Signed By: Tu Perkins MD at 06/30/2018 3:38 PM ED Course/Re-evaluation ED Course Patient was admitted exam room, history and physical were obtained. Differential diagnoses were considered. On examination lungs are clear, heart is regular, abdomen soft nontender. Patient does have some slight weakness to the left arm, equal grasp strength, equal strength with dorsiflexion and plantarflexion of the feet. Patient did have some edema to the lower extremities. A CBC, CMP, urinalysis, CT scan of the head, cervical spine, ultrasound of the lower extremities were done. Patient had a normal white count , auditory or unremarkable, lactate was elevated 2.4. Patient did have urine that was positive for a urinary tract infection was 65 white blood cells per high-power field. CT scan of the head and cervical spine were negative. Ultrasound of the bilateral legs were also negative. I discussed the case with Dr. Baird, hospitalist, who came down and evaluate the patient and accepted him for admission. I believe this is likely a social admit as the patient has no place to go home. Decision to Disposition Date: Jun 30, 2018 Decision to Disposition Time: 17:58 Depart Departure Latest Vital Signs Vital Signs Date Time Temp Pulse Resp B/P (MAP) Pulse Ox O2 Delivery O2 Flow Rate FiO2 06/30/18 16:10 61 89 06/30/18 15:00 127/79 (95) 06/30/18 14:02 97.9 18 Impression: Primary Impression: UTI (urinary tract infection) Condition: Condition Unchanged Disposition: Admitted from ER Problem Qualifiers Primary Impression: UTI (urinary tract infection) Urinary tract infection type: acute cystitis Hematuria presence: without hematuria Qualified Codes: N30.00 - Acute cystitis without hematuria NANI WHITTINGTON Jun 30, 2018 14:08
[2018-06-30] MEDS ORDERED: NS(*) 0.9% 1000 ML BAG 1,000 ML IV ONE ×2 (14:19→17:40)
--- NOTE | 2018-06-30 14:50 | RADIOLOGY IMAGING REPORT ---
FACILITY: [facility] - [place] PATIENT NAME: Je Mcgarry : 1970 MR: [id number] V: [id number] EXAM DATE: ORDERING PHYSICIAN: NANI WHITTINGTON TECHNOLOGIST: Location: [facility] - [place] Patient: Je Mcgarry : 1970 Visit/Account:[id number] Date of Sevice: 06/30/2018 CHEST SINGLE AP Indication: Wheezing.. Comparison: 12/21/2017. Findings: Cardiomediastinal silhouette and pulmonary vessels within normal limits. There is no focal infiltrate or lobar consolidation. No pneumothorax or pleural effusion. No nodule. Upper abdomen is unremarkable. No acute bony abnormality. Postsurgical changes in lower ce rvical spine without sequelae. IMPRESSION: 1. No acute cardiopulmonary process. Report Dictated By: Vinnie Sin at 06/30/2018 2:44 PM Report E-Signed By: Vinnie Sin at 06/30/2018 2:45 PM WSN:[id number]
[2018-06-30 15:09] LABS: PLATELET COUNT, AUTOMATED 167 K/uL (150-450)
[2018-06-30] MEDS ORDERED: PREG100C44 PO (15:09)
[2018-06-30] MEDS ORDERED: NAPR-1043 PO (15:09)
[2018-06-30] MEDS ORDERED: TRAM-420 PO (15:09)
--- NOTE | 2018-06-30 15:42 | RADIOLOGY IMAGING REPORT ---
[place] [facility] [place] NAME: Je Mcgarry : 1970 MR: [id number] V: [id number] EXAM DATE: [id number] ORDERING PHYSICIAN: NANI WHITTINGTON TECHNOLOGIST: Location: [facility] Patient: Je Mcgarry : 1970 Visit/Account:[id number] Date of Sevice: 06/30/2018 EXAMINATION: HEAD W/O CONTRAST CLINICAL INDICATION: weakness COMPARISON: CT dated May 05, 2017. TECHNIQUE: Contiguous axial CT images of the brain were obtained without IV contrast. Sagittal and co marcos reformatted images were also performed. One of the following dose optimization techniques was utilized in the performance of this exam: Autom ated exposure control; adjustment of the mA and/or kV according to the patient's size; or use of an i terative reconstruction technique. Specific details can be referenced in the facility's radiology C T exam operational policy. RESULT: BRAIN: The ventricles are symmetric and normal in size. The brain parenchyma appears normal. The gra y-white matter differentiation is preserved and the basilar cisterns are maintained. The cerebellum a nd brainstem appear normal. There is no mass, acute infarct, hemorrhage or shift of midline. Mild ca lcification within the cavernous carotid arteries. VISUALIZED PARANASAL SINUSES & MASTOIDS: Well aerated. SKULL BASE & CRANIUM: Visualized osseous structures are intact. IMPRESSION: No acute findings Report Dictated By: Tu Perkins MD at 06/30/2018 3:35 PM Report E-Signed By: Tu Perkins MD at 06/30/2018 3:38 PM WSN:[id number]
--- NOTE | 2018-06-30 15:57 | RADIOLOGY IMAGING REPORT ---
FACILITY: [facility] PATIENT NAME: Je Mcgarry : 1970 MR: [id number] V: [id number] EXAM DATE: ORDERING PHYSICIAN: NANI WHITTINGTON TECHNOLOGIST: Location: [facility] - [place] Patient: Je Mcgarry : 1970 Visit/Account:[id number] Date of Sevice: 06/30/2018 ADDENDUM #1 There is slight reversal of the upper cervical lordosis which is likely related to the cervical fusio n. Report Dictated By: Tu Perkins MD at 06/30/2018 3:57 PM Report E-Signed By: Tu Perkins MD at 06/30/2018 3:58 PM ORIGINAL REPORT EXAMINATION: CT cervical spine without IV contrast HISTORY: Weakness COMPARISON: None. TECHNIQUE: Axial images were obtained from the skull base through the upper thoracic spine without I V contrast administration. Coronal and sagittal reformatted images were obtained from the axial [facility] e data. One of the following dose optimization techniques was utilized in the performance of this exam: Autom ated exposure control; adjustment of the mA and/or kV according to the patient's size; or use of an i terative reconstruction technique. Specific details can be referenced in the facility's radiology C T exam operational policy. FINDINGS: Alignment: Normal. Cranio-cervical junction: Negative. Vertebral bodies: Negative. Posterior elements: Negative. Hardware: C4-C6 anterior fusion hardware without visualized complication. Disc Spaces: Mild disc disease at C3-C4 and C6-C7. Soft tissues: Negative. Visualized upper chest: Small amount of debris within the trachea with small paratracheal diverticulu m. IMPRESSION: 1. No acute fracture of the cervical spine. Report Dictated By: Tu Perkins MD at 06/30/2018 3:49 PM Report E-Signed By: Tu Perkins MD at 06/30/2018 3:53 PM WSN:[id number]
--- NOTE | 2018-06-30 16:22 | RADIOLOGY IMAGING REPORT ---
FACILITY: [facility] PATIENT NAME: Je Mcgarry : 1970 MR: [id number] V: [id number] EXAM DATE: ORDERING PHYSICIAN: NANI WHITTINGTON TECHNOLOGIST: Location: [facility] - [place] Patient: Je Mcgarry : 1970 Visit/Account:[id number] Date of Sevice: 06/30/2018 Bilateral lower extremity duplex venous ultrasound Indication: Bilateral leg swelling. Comparison: None Available Findings: Duplex Doppler and color flow imaging was performed. The bilateral common femoral, femoral , and popliteal veins are all patent and compressible with normal Doppler wave forms. There are norm al responses to augmentation. The bilateral posterior tibial and peroneal veins are clear. The proximal greater saphenous veins are also normal. Both lower legs do show mild subcutaneous edema. Impression: 1. No evidence of deep venous thrombosis of the bilateral lower extremities. Report Dictated By: Vinnie Sin at 06/30/2018 4:17 PM Report E-Signed By: Vinnie Sin at 06/30/2018 4:19 PM WSN:[id number]
[2018-06-30] MEDS ORDERED: BACLOFEN 10 MG TAB PO PRN (17:40)
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
[2018-06-30 18:32] VITALS: BP 137/81
[2018-06-30] MEDS ORDERED: METF-411 PO (19:00)
[2018-06-30] MEDS: GABAPENTIN 300 MG CAP PO SCH (21:52)
[2018-06-30 23:21] VITALS: BP 104/55
[2018-07-01 03:45] VITALS: BP 122/83
[2018-07-01] MEDS: NAPROXEN 500 MG TAB PO PRN (03:52)
[2018-07-01 05:41] LABS: PLATELET COUNT, AUTOMATED 159 K/uL (150-450)
[2018-07-01 07:46] VITALS: BP 129/96
[2018-07-01] MEDS: ACETAMINOPHEN 500 MG TAB PO PRN ×2 (08:06→19:51)
--- NOTE | 2018-07-01 09:00 | Hospitalist Progress Note ---
Subjective Progress Notes Subjective This patient was admitted for weakness. He had no acute events overnight. Patient Complains of: Cardiovascular: No: Chest Pain Respiratory: No: Shortness of Breath Physical Exam Vital Signs Date Time Temp Pulse Resp B/P (MAP) Pulse Ox O2 Delivery O2 Flow Rate FiO2 07/01/18 07:55 94 07/01/18 07:46 98.6 91 22 129/96 (107) Room Air Cardiovascular: Regular Rate and Rhythm Respiratory: Clear to Auscultation Result Diagram: 07/01/1851207/01/18512 Assessment and Plan Problems: (1) Weakness Status: Acute Assessment & Plan: He presented with worsening bilateral LE weakness and L hand weakness over the last 2 months related to his cervical stenosis. He has [facility] to [facility], but he could walk short distances when there. Physical and occupational therapy consults are pending. (2) Dehydration Status: Acute Assessment & Plan: Resolved with IV fluids. (3) Pyuria Status: Acute Assessment & Plan: He has had pyuria every time UA's are done. WBC wnl. Afebrile. Will await culture and follow symptoms. He does likely have a neurogenic bladder, but had his Frost removed (that was chronically in while at [facility]). He is very hesitant to have another placed because of a h/o bladder rupture. (4) Edema Status: Acute Assessment & Plan: Secondary to legs being dependant for days on end. No DVT by venogram. (5) Cervical stenosis of spinal canal Status: Chronic Assessment & Plan: He had a fusion done within the last 6 months, but hasn't had much improvement in his bilateral leg weakness or left UE weakness. He gets leg spasms and has chronic leg pain. Not on Lyrica secondary to SI. Gabapentin scheduled and Baclofen prn are ordered for spasm. (6) Bladder rupture Status: Resolved Assessment & Plan: He had repair in November of 2017. Exam Sepsis Risk: Sepsis Risk GRIFFIN EARLY DO Jul 01, 2018 08:59
[2018-07-01 09:36] VITALS: Ht 175.3 cm; Wt 85.7 kg
[2018-07-01] MEDS: GABAPENTIN 300 MG CAP PO SCH ×2 (09:36→21:28)
[2018-07-01] MEDS: ENOXAPARIN 40 MG/0.4ML SYR SC SCH (09:36)
[2018-07-01] MEDS: traMADol 50 MG TAB PO PRN (10:29)
[2018-07-01 10:45] VITALS: BP 113/75
[2018-07-01 15:51] VITALS: BP 111/98
[2018-07-01 18:32] VITALS: BP 122/84
[2018-07-02 08:00] VITALS: BP 127/89
[2018-07-02] MEDS: ENOXAPARIN 40 MG/0.4ML SYR SC SCH (08:23)
[2018-07-02] MEDS: NAPROXEN 500 MG TAB PO PRN (08:23)
[2018-07-02] MEDS: GABAPENTIN 300 MG CAP PO SCH ×2 (08:23→20:20)
[2018-07-02] MEDS: ACETAMINOPHEN 500 MG TAB PO PRN ×2 (10:00→19:36)
--- NOTE | 2018-07-02 10:37 | Hospitalist Progress Note ---
Subjective Progress Notes Subjective He has complaints of pain and numbness and tingling this morning. He had no acute events overnight. Patient Complains of: Cardiovascular: No: Chest Pain Respiratory: No: Shortness of Breath Physical Exam Vital Signs Date Time Temp Pulse Resp B/P (MAP) Pulse Ox O2 Delivery O2 Flow Rate FiO2 07/02/18 08:00 91 07/02/18 08:00 98.5 80 14 127/89 (102) Room Air Intake and Output 07/03/18 06:59 Intake Total 776 ml Output Total 150 ml Balance 626 ml Intake Oral 776 ml Output Urine Total 150 ml # Voids 1 General Appearance: Alert, Awake, No Acute Distress, Afebrile Neuro: No Gross deficits Cardiovascular: Regular Rate and Rhythm Respiratory: No Respiratory Distress, Clear to Auscultation Extremities: Other (numbness tingling sensation) Psych: Alert & Oriented X3, Appropriate Mood & Affect Result Diagram: 07/01/18 0513 07/01/18512 Assessment and Plan Problems: (1) Weakness Status: Acute Assessment & Plan: He presented with worsening bilateral LE weakness and L hand weakness over the last 2 months related to his cervical stenosis. He has not attempted to walk since leaving [facility], but he could walk short distances when there. Physical and occupational therapy consults are ordered. We will add Cymbalta today to help with pain. (2) Dehydration Status: Acute Assessment & Plan: Resolved with IV fluids. (3) Pyuria Status: Acute Assessment & Plan: He has had pyuria every time UA's are done. WBC wnl. Afebrile. Will await culture and follow symptoms. He does likely have a neurogenic bladder, but had his Frost removed (that was chronically in while at [facility]). He is very hesitant to have another placed because of a h/o bladder rupture. (4) Edema Status: Acute Assessment & Plan: Secondary to legs being dependant for days on end. No DVT by venogram. (5) Cervical stenosis of spinal canal Status: Chronic Assessment & Plan: He had a fusion done within the last 6 months, but hasn't had much improvement in his bilateral leg weakness or left UE weakness. He gets leg spasms and has chronic leg pain. Not on Lyrica secondary to SI. Gabapentin scheduled and Baclofen prn are ordered for spasm. We will add Cymbalta daily to help with numbness and tingling. (6) Bladder rupture Status: Resolved Assessment & Plan: He had repair in November of 2017. 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
[2018-07-02] MEDS: DULoxetine HCL 30 MG CAPCR PO SCH (10:42)
[2018-07-02] MEDS: traMADol 50 MG TAB PO PRN ×2 (10:45→20:20)
[2018-07-02 14:56] VITALS: BP 127/88
[2018-07-02 19:19] VITALS: BP 133/97
[2018-07-02 20:17] VITALS: BP 153/100
[2018-07-03 02:57] VITALS: BP 128/86
[2018-07-03 07:58] VITALS: BP 137/93
[2018-07-03] MEDS: GABAPENTIN 300 MG CAP PO SCH (08:19)
[2018-07-03] MEDS: ACETAMINOPHEN 500 MG TAB PO PRN (08:19)
[2018-07-03] MEDS: DULoxetine HCL 30 MG CAPCR PO SCH (08:19)
[2018-07-03] MEDS: ENOXAPARIN 40 MG/0.4ML SYR SC SCH (08:22)
[2018-07-03] MEDS ORDERED: TRAM-420 PO ×2 (09:19→09:38)
[2018-07-03] MEDS ORDERED: AMLO2.5T74 PO (09:19)
[2018-07-03] MEDS ORDERED: ACET-2043 PO (09:19)
[2018-07-03] MEDS ORDERED: DULO30CA35 PO (09:19)
[2018-07-03] MEDS ORDERED: GABA-549 PO (09:19)
[2018-07-03] MEDS ORDERED: METF-411 PO (09:19)
[2018-07-03] MEDS ORDERED: NAPR500T31 PO (09:19)
[2018-07-03] MEDS ORDERED: NICO-306 BC (09:27)
--- NOTE | 2018-07-03 10:24 | Hospitalist Depart ---
Discharge Summary Reason for Hosp/Final Diag: (1) Weakness Status: Acute Hospital Course & Plan: He presented with worsening bilateral LE weakness and L hand weakness over the last 2 months related to his cervical stenosis. He has not attempted to walk since leaving [facility], but he could walk short distances when there. He has been working with PT and OT. Cymbalta was added 07/02 to help with pain. He has noted some improvement with Cymbalta. (2) Dehydration Status: Acute Hospital Course & Plan: Resolved with IV fluids. (3) Pyuria Status: Acute Hospital Course & Plan: He has had pyuria every time UA's are done. WBC wnl. Afebrile. Culture shows small amount of yeast species, which is likely colonization from intermittent catheterization. He does likely have a neurogenic bladder, but had his Frost removed (that was chronically in while at [place]). He is very hesitant to have another placed because of a h/o bladder rupture. He is asymptomatic at this time. (4) Edema Status: Acute Hospital Course & Plan: Secondary to legs being dependant for days on end. No DVT by venogram. (5) Cervical stenosis of spinal canal Status: Chronic Hospital Course & Plan: He had a fusion done within the last 6 months, but hasn 't had much improvement in his bilateral leg weakness or left UE weakness. He gets leg spasms and has chronic leg pain. Not on Lyrica secondary to SI. Gabapentin and Cymbalta added daily to help with numbness and tingling. (6) Bladder rupture Status: Resolved Hospital Course & Plan: He had repair in November of 2017. Departure Weight (Pounds): 189 Result Diagram: 07/01/1851207/01/18512 Condition: Improved Discharge: [facility] Discharge Instructions Home Meds Active Scripts Tramadol Hcl (TRAMADOL HCL) 50 Mg Tablet, 50 MG PO Q8H, #21 TAB Prov:NBA CARD [facility] 07/03/18 Nicotine Polacrilex (NICOTINE GUM) 2 Mg Gum, 2 MG BC Q2H Y for urge to smoke, # 360 GUM Prov:NBA CARDP 07/03/18 Acetaminophen (ACETAMINOPHEN) 500 Mg Tablet, 1000 MG PO Q8H Y for PAIN, #180 TAB Prov:NBA CARD [facility] 07/03/18 Naproxen (NAPROXEN) 500 Mg Tablet, 500 MG PO Q12H Y for pain, #60 TAB Prov:NBA CARD [facility] 07/03/18 Gabapentin (GABAPENTIN) 300 Mg Capsule, 300 MG PO BID, #60 CAPSULE Prov:NBA CARD [facility] 07/03/18 Duloxetine Hcl (CYMBALTA) 30 Mg Capsule.dr, 30 MG PO QDAY, #30 TAB Prov:NBA CARD [facility] 07/03/18 Metformin Hcl (METFORMIN HCL) 500 Mg Tablet, 1 TAB PO BID, #60 TAB Prov:NBA CARD [facility] 07/03/18 Amlodipine Besylate (AMLODIPINE BESYLATE) 2.5 Mg Tablet, 2.5 MG PO QDAY for 30 Days, #30 TAB 1 Refill Prov:NBA CARD [facility] 07/03/18 Discontinued Reported Medications Naproxen Sodium (ALEVE) 220 Mg Tablet, 500 MG PO BID, TAB 06/30/18 Pregabalin (LYRICA) 100 Mg Capsule, 100 MG PO BID, CAPSULE 06/30/18 Tramadol Hcl (TRAMADOL HCL) 50 Mg Tablet, 50-100 MG PO Q4-6H, TAB 06/30/18 Discontinued Scripts Acetaminophen (MAPAP) 325 Mg Tablet, 650 MG PO Q6H Y for FEVER/PAIN for 30 Days , TAB 1 Refill Prov:DAVID BANUELOS MD 03/16/18 Sulfamethoxazole/Trimet 800-160 Mg Tab (BACTRIM DS TABLET) 1 Each Tablet, 1 TAB PO Q12H for 7 Days, #14 TAB Prov:LUPE JARA DO 05/28/18 Pregabalin (LYRICA) 50 Mg Capsule, 50 MG PO BID for 30 Days, #60 CAPSULE 1 Refill Prov:DAVID BANUELOS MD 03/16/18 Pantoprazole Sodium (PANTOPRAZOLE SODIUM) 40 Mg Tablet.dr, 40 MG PO QDAY for 30 Days, #30 TAB 1 Refill Prov:DAVID BANUELOS MD 03/16/18 Nicotine (NICOTROL) 10 Mg/Inh Ctr, 10 MG INH PRN Y for nicotine need for 30 Days , #1 INHALER 1 Refill Prov:DAVID BANUELOS MD 03/16/18 Enoxaparin Sodium (LOVENOX) 40 Mg/0.4 Ml Disp.syrin, 40 MG SC HS for 30 Days, SYR 1 Refill Prov:DAVID BANUELOS MD 03/16/18 Cyclobenzaprine Hcl (CYCLOBENZAPRINE HCL) 10 Mg Tablet, 10 MG PO Q8H Y for MUSCLE SPASMS for 30 Days, TAB 1 Refill Prov:DAVID BANUELOS MD 03/16/18 Diet: Diabetic Activity: As Tolerated Special Instructions: Follow up with Dr. Connell in one week. 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
[2018-07-03] MEDS: NAPROXEN 500 MG TAB PO PRN (11:55)
[2018-07-03] MEDS: traMADol 50 MG TAB PO PRN (14:50)
== END 2018-07-03 15:00 | DRG 690 ==
LOC: ER 14:06 → MED 18:07
PROVIDERS: ADMIT Internal Medicine; ATTEND Internal Medicine
DX: N30.00 Acute cystitis without hematuria (principal); M48.02 Spinal stenosis, cervical region; E86.0 Dehydration; R53.1 Weakness; N31.9 Neuromuscular dysfunction of bladder, unspecified; F17.210 Nicotine dependence, cigarettes, uncomplicated; R60.0 Localized edema; Z98.1 Arthrodesis status
CPT/HCPCS: 36415; 70450; 71045; 72125; 80305; 80320; 81001; 82040; 82247; 82310; 82374; 82435; 82565; 82947; 83605; 84075; 84132; 84155; 84295; 84443; 84450; 84460; 84484; 84520; 85025; 87040; 87088; 93970; 96360; 97161; 97166; 99284; J1650; J7030

== ENCOUNTER → 2018-06-30 | Outpatient (CLI) | payer MEDICAID ==
[~2018-06-30] MED LIST changes: +ACET-2043 PO; +DULO30CA35 PO; +GABA-549 PO; +METF-411 PO; +NAPR-1043 PO; +NAPR500T31 PO; +NICO-306 BC; +PREG100C44 PO; +TRAM-420 PO
[2018-07-01 09:36] VITALS: BMI 27.9
== END ==
LOC: AMB 13:35
PROVIDERS: ATTEND Nurse Practitioner
DX: M79.604 Pain in right leg (principal); R53.1 Weakness
CPT/HCPCS: A0425; A0427

== ENCOUNTER → 2018-07-17 | Outpatient (REF) | payer MEDICAID ==
[2018-07-01 09:36] VITALS: BMI 27.9
[~2018-07-17] MED LIST changes: +ACET-2043 PO; +DULO30CA35 PO; +GABA-549 PO; +METF-411 PO; +NAPR-1043 PO; +NAPR500T31 PO; +NICO-306 BC; +PREG100C44 PO; +TRAM-420 PO
== END ==
LOC: ZZLCC 10:54
PROVIDERS: ATTEND Family Medicine
DX: E11.9 Type 2 diabetes mellitus without complications (principal)
CPT/HCPCS: 83036

== ENCOUNTER → 2018-09-10 | Outpatient (CLI) | payer MEDICAID ==
[2018-07-01 09:36] VITALS: BMI 27.9
[~2018-09-10] MED LIST changes: -AMLO2.5T74 PO; +AMLO2.5T76 PO; -METF-411 PO; +METF-450 PO
--- NOTE | 2018-09-10 15:20 | RADIOLOGY IMAGING REPORT ---
FACILITY: [facility] PATIENT NAME: Je Mcgarry : 1970 MR: [id number] V: [id number] EXAM DATE: ORDERING PHYSICIAN: FARHAD EDMOND TECHNOLOGIST: Location: [facility] Patient: Je Mcgarry : 1970 Visit/Account:[id number] Date of Sevice: 09/10/2018 Exam type: ANKLE BRACHIAL INDICES History: Polyneuropathy Comparison: None. Findings: Segmental pressure in the right brachial artery is 107 mmHg. The segmental pressure in the right pos terior tibial artery is 124 mmHg. Segmental pressure in the right dorsalis pedis artery is 105 mm of mercury. Segmental pressure the right great toe is 80 20 m mercury PAWEL on the right is 1.10 and TBI on the right is 0.73. The segmental pressure in the left brachial artery is 113 mmHg. The segmental pressure in the left p osterior tibial artery is 114 mmHg. The segmental pressure in the left dorsalis pedis artery is 114 mmHgsegmental pressure the left great toe is 87 mmHg. The PAWEL on the left is 1.01 and the TBI on the left is 0.77 There is no significant dampening of the PVR waveforms at the ankles IMPRESSION: 1. PAWEL on the right is 1.10. TBI in the right 0.73 PAWEL on the left 1.01 and TBI on the left 0.77 Report Dictated By: Ene Johnson MD at 09/10/2018 3:13 PM Report E-Signed By: Ene Johnson MD at 09/10/2018 3:16 PM WSN:[email or web address]
== END ==
LOC: RAD 12:54
PROVIDERS: ATTEND Physician Assistant
DX: G62.9 Polyneuropathy, unspecified (principal)
CPT/HCPCS: 93922

== ENCOUNTER → 2018-09-10 | Outpatient (CLI) | payer MEDICAID ==
[2018-07-01 09:36] VITALS: BMI 27.9
--- NOTE | 2018-09-10 14:58 | RADIOLOGY IMAGING REPORT ---
FACILITY: [facility] PATIENT NAME: Je Mcgarry : 1970 MR: [id number] V: [id number] EXAM DATE: ORDERING PHYSICIAN: ESCOBAR BECERRA TECHNOLOGIST: Location: [facility] Patient: Je Mcgarry : 1970 Visit/Account:[id number] Date of Sevice: 09/10/2018 CERVICAL SPINE MIN 4 VIEW HISTORY: Numbness and tingling down both extremities. COMPARISON: CT examination cervical spine from June 30 FINDINGS: Neutral positioning demonstrates stable alignment with stable postoperative change status post anteri or fusion C4-C6. Ventral plate and fixation screws are unremarkable. The mild disc narrowing at C3- C4 and C6-C7 is unchanged. Flexion and extension demonstrates no evidence of hypermobility. IMPRESSION: 1. Stable operative change without evidence of acute bony finding, hardware complication or hypermob ility Report Dictated By: Sebastián Sorenson MD at 09/10/2018 2:51 PM Report E-Signed By: Sebastián Sorenson MD at 09/10/2018 2:53 PM WSN:[email or web address]
== END ==
LOC: RAD 12:59
PROVIDERS: ATTEND Nurse Practitioner Acute Care
DX: G95.9 Disease of spinal cord, unspecified (principal); M48.02 Spinal stenosis, cervical region; S14.13 Anterior cord syndrome of cervical spinal cord; Z98.890 Other specified postprocedural states
CPT/HCPCS: 72050

== ENCOUNTER → 2018-10-27 | Outpatient (CLI) | payer MEDICAID ==
[2018-07-01 09:36] VITALS: BMI 27.9
--- NOTE | 2018-10-27 16:16 | RADIOLOGY IMAGING REPORT ---
FACILITY: [facility] PATIENT NAME: Je Mcgarry : 1970 MR: [id number] V: [id number] EXAM DATE: ORDERING PHYSICIAN: FARHAD EDMOND TECHNOLOGIST: Location: [facility] Patient: Je Mcgarry : 1970 Visit/Account:[id number] Date of Sevice: 10/27/2018 Exam type: THORACIC SPINE 3 VIEWS History: Thoracic spine pain, back spasms Comparison: MR the thoracic spine November 30, 2017. Findings: There mild to moderate degenerative changes in the mid to lower thoracic spine. There is no evidence of acute fractures or subluxations demonstrated. Incidentally noted are post surgical changes from anterior fusion of the lower cervical spine IMPRESSION: 1. Mild to moderate spondylotic changes of the thoracic spine Report Dictated By: Ene Johnson MD at 10/27/2018 4:09 PM Report E-Signed By: Ene Johnson MD at 10/27/2018 4:11 PM WSN:[email or web address]
== END ==
LOC: RAD 13:49
PROVIDERS: ATTEND Physician Assistant
DX: M54.6 Pain in thoracic spine (principal)
CPT/HCPCS: 72072

== ENCOUNTER → 2018-12-31 | Outpatient (CLI) | payer MEDICAID ==
[2018-07-01 09:36] VITALS: BMI 27.9
[~2018-12-31] MED LIST changes: -AMLO2.5T76 PO; +AMLO2.5T78 PO
== END ==
LOC: AMB 16:47
PROVIDERS: ATTEND Nurse Practitioner
DX: M48.061 Spinal stenosis, lumbar region without neurogenic claudication (principal)
CPT/HCPCS: A0425; A0429

== ENCOUNTER → 2019-03-04 | Outpatient (REF) | payer MEDICAID ==
[2018-07-01 09:36] VITALS: BMI 27.9
== END ==
LOC: ZZSENDIN 17:16
PROVIDERS: ATTEND Physician Assistant
DX: R30.0 Dysuria (principal)
CPT/HCPCS: 81001

== ENCOUNTER → 2019-03-18 | Outpatient (CLI) | payer MEDICAID ==
[2018-07-01 09:36] VITALS: BMI 27.9
--- NOTE | 2019-03-18 17:05 | RADIOLOGY IMAGING REPORT ---
FACILITY: [facility] PATIENT NAME: Je Mcgarry : 1970 MR: [id number] V: [id number] EXAM DATE: ORDERING PHYSICIAN: ESCOBAR BECERRA TECHNOLOGIST: Location: [facility] Patient: Je Mcgarry : 1970 Visit/Account:[id number] Date of Sevice: 03/18/2019 MRI thoracic spine, and MRI lumbar spine Indication: Decreased ability to ambulate and use up or extremities bilaterally Comparison: MRI of the thoracic spine 11/30/2017 and MRI lumbar spine 11/30/2017 Technique: Multiplanar multisequence MR images were obtained through the thoracic spine, and lumbar s pine. Findings: MRI thoracic spine: Moderate anterior endplate changes seen at T8-T9 and T9-T10. Small Schmorl's nodes seen at the inferior plate of T6, T7, T8, and T9. There is also a small Schmor l's node within the superior and inferior plate of T12. Chronic mild anterior wedging of the T12 lev el unchanged. Hemangioma seen within the visualized L1 vertebral body as well. Chronic mild anterior wedging at T12 noted as well as chronic mild anterior wedging at T7 and T8 unch anged. Mild disc desiccation throughout the thoracic spine levels with minimal disc space narrowing at T5-T6 , T6-T7, T7-T8, T8-T9, and T9-T10. There are mild diffuse disc bulges at T7-T8 and T8-T9 which appea rs similar to prior study. There is no significant central stenosis or foraminal narrowing throughou t the thoracic spine levels. Limited views of the lung chacon posteriorly and medially appear overall unremarkable with no acute t horacic abnormality. MRI lumbar spine: The conus terminates normally at level of L1-L2 Hemangioma within the L1 vertebral body again noted. Mild anterosuperior endplate changes at L3 with prominent anterior osteophyte at L3 as well. There is no abnormal signal within the visualized spinal cord, The vertebral body heights are well maintained. Mild disc space narrowing and disc desiccation at L2-L3 as well as L5-S1. Sagittal images of T12-L1 show no significant central stenosis or foraminal narrowing.. T12-L1: No significant central stenosis or neural foraminal narrowing. L1-L2: No significant central stenosis or neural foraminal narrowing. L2-L3: There is a diffuse disc bulge with superimposed broad-based left foraminal disc protrusion ag ain seen which causes moderate left lateral recess narrowing and overall mild central stenosis. Ther e is also [id number] left-sided neural foraminal narrowing unchanged. L3-L4: Mild diffuse disc bulge mild facet arthropathy results in overall mild central stenosis appe ars overall similar to prior study. There is mild left-sided neural foraminal narrowing right neural foramen is patent. This appears unchanged. L4-L5: Moderate diffuse disc bulge eccentric to the right superimposed broad-based right foraminal di sc protrusion extending to right lateral recess causes moderate to severe right lateral recess narrow ing which also appears similar to prior study. Moderate bilateral facet arthropathy also noted. The re is moderate right-sided and minimal left-sided neural foraminal narrowing. This also appears unch anged. L5-S1: Minimal diffuse disc bulge and moderate facet arthropathy with mild fluid within the bilater al facets also unchanged. No significant central stenosis or foraminal narrowing. IMPRESSION: 1. Degenerative and chronic changes throughout the thoracic and lumbar spine appear overall similar to prior study with no severe central or foraminal narrowing or significant change from prior exam. Report Dictated By: Gonzalez Rodriguez MD at 03/18/2019 4:48 PM Report E-Signed By: Gonzalez Rodriguez MD at 03/18/2019 5:00 PM WSN:[id number]
--- NOTE | 2019-03-18 17:06 | RADIOLOGY IMAGING REPORT ---
FACILITY: [facility] PATIENT NAME: Je Mcgarry : 1970 MR: [id number] V: [id number] EXAM DATE: ORDERING PHYSICIAN: ESCOBAR BECERRA TECHNOLOGIST: [place] [facility] [place]: Je Mcgarry : 1970 Visit/Account:[id number] Date of Sevice: 03/18/2019 MRI thoracic spine, and MRI lumbar spine Indication: Decreased ability to ambulate and use up or extremities bilaterally Comparison: MRI of the thoracic spine 11/30/2017 and MRI lumbar spine 11/30/2017 Technique: Multiplanar multisequence MR images were obtained through the thoracic spine, and lumbar s pine. Findings: MRI thoracic spine: Moderate anterior endplate changes seen at T8-T9 and T9-T10. Small Schmorl's nodes seen at the inferior plate of T6, T7, T8, and T9. There is also a small Schmor l's node within the superior and inferior plate of T12. Chronic mild anterior wedging of the T12 lev el unchanged. Hemangioma seen within the visualized L1 vertebral body as well. Chronic mild anterior wedging at T12 noted as well as chronic mild anterior wedging at T7 and T8 unch anged. Mild disc desiccation throughout the thoracic spine levels with minimal disc space narrowing at T5-T6 , T6-T7, T7-T8, T8-T9, and T9-T10. There are mild diffuse disc bulges at T7-T8 and T8-T9 which appea rs similar to prior study. There is no significant central stenosis or foraminal narrowing throughou t the thoracic spine levels. Limited views of the lung chacon posteriorly and medially appear overall unremarkable with no acute t horacic abnormality. MRI lumbar spine: The conus terminates normally at level of L1-L2 Hemangioma within the L1 vertebral body again noted. Mild anterosuperior endplate changes at L3 with prominent anterior osteophyte at L3 as well. There is no abnormal signal within the visualized spinal cord, The vertebral body heights are well maintained. Mild disc space narrowing and disc desiccation at L2-L3 as well as L5-S1. Sagittal images of T12-L1 show no significant central stenosis or foraminal narrowing.. T12-L1: No significant central stenosis or neural foraminal narrowing. L1-L2: No significant central stenosis or neural foraminal narrowing. L2-L3: There is a diffuse disc bulge with superimposed broad-based left foraminal disc protrusion ag ain seen which causes moderate left lateral recess narrowing and overall mild central stenosis. Ther e is also [id number] left-sided neural foraminal narrowing unchanged. L3-L4: Mild diffuse disc bulge mild facet arthropathy results in overall mild central stenosis appe ars overall similar to prior study. There is mild left-sided neural foraminal narrowing right neural foramen is patent. This appears unchanged. L4-L5: Moderate diffuse disc bulge eccentric to the right superimposed broad-based right foraminal di sc protrusion extending to right lateral recess causes moderate to severe right lateral recess narrow ing which also appears similar to prior study. Moderate bilateral facet arthropathy also noted. The re is moderate right-sided and minimal left-sided neural foraminal narrowing. This also appears unch anged. L5-S1: Minimal diffuse disc bulge and moderate facet arthropathy with mild fluid within the bilater al facets also unchanged. No significant central stenosis or foraminal narrowing. IMPRESSION: 1. Degenerative and chronic changes throughout the thoracic and lumbar spine appear overall similar to prior study with no severe central or foraminal narrowing or significant change from prior exam. Report Dictated By: Gonzalez Rodriguez MD at 03/18/2019 4:48 PM Report E-Signed By: Gonzalez Rodriguez MD at 03/18/2019 5:00 PM WSN:[id number]
== END ==
LOC: MRI 00:19
PROVIDERS: ATTEND Nurse Practitioner Acute Care
DX: M51.34 Other intervertebral disc degeneration, thoracic region (principal); M51.36 Other intervertebral disc degeneration, lumbar region
CPT/HCPCS: 72146; 72148

== ENCOUNTER 2019-04-06 10:00 | Outpatient (RCR) | payer MEDICAID ==
[2018-07-01 09:36] VITALS: BMI 27.9
--- NOTE | 2019-04-06 12:57 | OT INITIAL EVALUATION ---
SUBJECTIVE: Patient is a 48 year old right hand dominant male referred to OP OT services for hand weakness s/p spinal cord compression. Patient reports that this weakness in his UE and hands started around 2017. Patient feels that his problems are due to his neck problems and from years of lifting weight. Patient reports that he was in an acute rehab facility in April of 2018. Patient is currently living in a alf facility. He does get assistance with self care for some dressing and pericare. Patient uses his power wheelchair for mobility. He reports that he can use a walker and is getting Physical Therapy and [employer] 2 times a week. Patient's goal is to gain more strength and use in both of his hands. He reports that the left hand is harder to use than his right hand. 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 Right = 26# (Age/gender normative= 113.6#) Left=20# (Age/gender normative= 101.9#) Lateral Pinch Right = 15.7# (Age/gender normative= 26.7#) Left= 9# (Age/gender normative= 26.1#) 3 Point Pinch Right = 11.3# (Age/gender normative= 23.8#) Left= 6.7# (Age/gender normative= 24#) Sensation: reports of numbness in his hands, but reports that he can feel hot, cold, sharp, and dull Pain: no reports of pain in his arms or hands Vision: no reports of changes in vision Special Test: 9 Hole Peg Test (dexterity) Right= 1 minute and 7 seconds (Age/gender normative= 19.2 seconds) Left= 2 minutes and 14 seconds (Age/gender normative= 20.7 seconds) ASSESSMENT Patient presents with AROM of the right UE WFL, but does has some deficits with movement of the left wrist and fingers. 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 Patient reports that he may have another back surgery coming up and he hopes that this will help his left hand as he has a difficult time extending the wrist and opening up his fingers. Patient to benefit from OT services to help increase strength and help with bilateral hand coordination to help increase independence with self care performance. Patient plans to get his own apartment in the near future. Short Term Goals 1.Patient will increase records management coordinator strength on the both hand by 6# in order to hold objects. 2.Patient will increase lateral pinch on both hands by 3 # in order to open up containers. 3.Patient will increase 3 point pinch on both hands by 3# in order to open up containers. 3.Patient will completed the 9 Hole Peg test with the left hand under 2 minutes in order to complete ADLs in a timely manner. PLAN: Plan to see patient 2 times a week up to ten weeks to increase bilateral hand strength for records management coordinator and pinch and bilateral hand coordination to improve independence with ADLs and IADLs. Plan of care to include ther ex, ther act, self cares Thank you for this referral. If you have any questions, concerns, or comments about this report or plan, please contact me at [phone]. Lupe López MS, OTR/L Occupational Therapist Provider Signature Date MTDD
--- NOTE | 2019-04-20 10:17 | OT DISCHARGE SUMMARY ---
SUBJECTIVE: Patient is a 48 year old right hand dominant male referred to OP OT services for hand weakness s/p spinal cord compression. Patient has not attended the last 3 scheduled appointments due to his back. [facility] notified OP that the patient would like to discharge from OT services as he may need another back surgery. 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 = 26# (Age/gender normative= 113.6#) Left=20# (Age/gender normative= 101.9#) Lateral Pinch Right = 15.7# (Age/gender normative= 26.7#) Left= 9# (Age/gender normative= 26.1#) 3 Point Pinch Right = 11.3# (Age/gender normative= 23.8#) Left= 6.7# (Age/gender normative= 24#) Sensation: reports of numbness in his hands, but reports that he can feel hot, cold, sharp, and dull Pain: no reports of pain in his arms or hands Vision: no reports of changes in vision Special Test: 9 Hole Peg Test (dexterity) Right= 1 minute and 7 seconds (Age/gender normative= 19.2 seconds) Left= 2 minutes and 14 seconds (Age/gender normative= 20.7 seconds) ASSESSMENT No further assessment as patient did not come to any of his appointments after the initial evaluation Short Term Goals 1.Patient will increase winder operator strength on the both hand by 6# in order to hold objects. not met 2.Patient will increase lateral pinch on both hands by 3 # in order to open up containers. not met 3.Patient will increase 3 point pinch on both hands by 3# in order to open up containers. not met 3.Patient will completed the 9 Hole Peg test with the left hand under 2 minutes in order to complete ADLs in a timely manner. not met PLAN: Plan to discharge patient at this time per his request. Will be happy to see patient after his pending back surgery. Thank you for this referral. If you have any questions, concerns, or comments about this report or plan, please contact me at [phone]. Lupe López MS, OTR/L Occupational Therapist Provider Signature Date MTDD
== END 2019-04-06 18:00 | disposition home or self-care (01) ==
LOC: OT 10:00
PROVIDERS: ATTEND Nurse Practitioner Acute Care
DX: M62.81 Muscle weakness (generalized) (principal)
CPT/HCPCS: 97165

== ENCOUNTER → 2019-07-01 | Outpatient (CLI) | payer MEDICAID ==
[2018-07-01 09:36] VITALS: BMI 27.9
--- NOTE | 2019-07-01 15:37 | RADIOLOGY IMAGING REPORT ---
FACILITY: [facility] PATIENT NAME: Je Mcgarry : 1970 MR: [id number] V: [id number] EXAM DATE: [id number] ORDERING PHYSICIAN: FARHAD EDMOND TECHNOLOGIST: Location: [facility] [place] Patient: Je Mcgarry : 1970 Visit/Account:[id number] Date of Sevice: 07/01/2019 Exam type: CERVICAL SPINE 2 OR 3 VIEW History: Fell off wheelchair yesterday with neck and arm pain Comparison: September 10, 2018. Findings: Three views were submitted. There are postsurgical changes from anterior fusion at C4-C6 with anteri or plate screws and intervertebral disc spacers. Since the prior study there has been placement of a n anterior intervertebral disc spacer at C3-4 with a small anterior plate. There is no evidence of a cute fracture or subluxation. The prevertebral soft tissues are normal IMPRESSION: 1. Postoperative changes of the cervical spine as detailed above although no gross evidence of acute fracture or subluxation by plain film criteria Report Dictated By: Ene Johnson MD at 07/01/2019 3:26 PM Report E-Signed By: Ene Johnson MD at 07/01/2019 3:29 PM WSN:[email or web address]
== END ==
LOC: RAD 14:49
PROVIDERS: ATTEND Physician Assistant
DX: M54.2 Cervicalgia (principal)
CPT/HCPCS: 72040